=== PATIENT | female | born 1960 | race Caucasian/White ===

== ENCOUNTER 2020-04-11 09:38 | Outpatient (REF) | payer OTHER, SELFPAY | END 2020-04-11 09:39 | disposition home or self-care (01) | LOC: HO.LAB 09:38 | PROVIDERS: PCP Physician Assistant; Visit Provider Internal Medicine | DX: Z20.828 Contact with and (suspected) exposure to other viral communicable diseases (principal) | CPT/HCPCS: C9803; U0003 ==

== ENCOUNTER 2020-04-30 08:31 | Day surgery (SDC) | payer OTHER, SELFPAY ==
[2020-04-29 12:12] VITALS: BMI 23.1
[2020-04-30 08:46] VITALS: BP 107/81; PULSE 65; RESP 16; TEMP 36.4; O2SAT 99
--- NOTE | 2020-04-30 09:26 | HO.ANESPROP2 ---
FORMERLY [facility] Past Medical History Medical History Anxiety Cervical spondylitis Depression Fibromyalgia DONNIE (generalized anxiety disorder) Hyperlipidemia Leukopenia Lumbar radiculopathy Menopause Pharyngoesophageal dysphagia Family History Family History (System 04/16/20 @ 12:37 by Kendra Vuong) Father Lung cancer Mother Lung cancer Surgical History Surgical History History of back surgery History of colonoscopy History of tubal ligation Social History Social History Alcohol intake: current Alcohol intake frequency: holidays/special occasions only Smoking Status: Never smoker Second Hand Smoke Exposure: No Use of substances other than those prescribed or required for medical reasons: No Advance Directives: No Advance Directives Information Provided: Yes Advance Directives on File: No Meds Allergies Allergy/AdvReac Type Severity Reaction Status Date / Time No Known Allergies Allergy Verified 04/16/20 12:37 Home Medications Medication Instructions Recorded Confirmed Type bupropion HCl 300 mg 24 hr tablet, 300 mg PO QAM 02/29/20 02/29/20 History extended release lorazepam 0.5 mg tablet 0.5 mg PO BID PRN 02/29/20 02/29/20 History Exam Exam Date and Time: April 30, 2020925 Height,Weight and Vital Signs: Height 5 ft 6 in Weight 64.864 kg Last Vital Signs Temp 97.6 F 04/30/20 08:46 Pulse 65 04/30/20 08:46 Resp 16 04/30/20 08:46 BP 107/81 04/30/20 08:46 Pulse Ox 99 04/30/20 08:46 Airway Mallampati Class: I TM Dist: >3cm Neck ROM: Full Heart: RRR Lungs: CTA
--- NOTE | 2020-04-30 09:41 | W.PM.OPN ---
Operative Note Operative Note Date of Service: 04/30/20 Narrative: Pre-op diagnosis: Colon cancer screening, dysphagia, small hiatal hernia and a barium swallow Post-op diagnosis: other (LPRD, Gastritis, colon polyps, diverticulosis, hemorrhoids) Procedure: FLEXIBLE TRANSORAL UPPER GASTROINTESTINAL ENDOSCOPY WITH BIOPSIES AND COLONOSCOPY TILL CECUM WITH BIOPSY AND SNARE POLYPECTOMY UPPER ENDOSCOPY Consent: Indications for the procedure and potential complications of bleeding, perforation, reaction to medications and missed diagnosis were discussed with the patient and informed consent was obtained. Instrument: Olympus GIF H 190 mid size upper endoscope Monitoring: Vital signs and clinical assessment, continuous EKG monitoring, Pulse oximetry, Carbon Dioxide monitoring and blood pressure monitoring were done throughout the procedure. Procedure: The patient was placed in the left lateral decubitis position and pre-procedure medications were administered and a bite block was placed. The endoscope was inserted into the mouth and advanced under direct vision to the third part of duodenum. A careful inspection was made as the upper endoscope was withdrawn including a retroflexed examination of the proximal stomach; Findings and interventions are described below. Findings: Larynx: Erythematous arytenoid cartilages suggestive of LPRD Esophagus: Tortuous esophagus with increased tertiary contractions without stricture or ring - biopsies obtained from proximal esophagus to check for EOE. GE junction at 38 cms, small hiatal hernia 38 to 40 cms.. No esophagitis or Conde's. Stomach: Mild gastric erythema. Biopsies were obtained. Grade 2 flap valve on retroflexed examination of the cardia. Duodenum: Normal bulb and descending duodenum Intervention: Biopsies as noted above COLONOSCOPY PROCEDURE NOTE Consent: Indications for the procedure and potential complications of bleeding, perforation, reaction to medications and missed diagnosis were discussed with the patient and informed consent was obtained. Instrument: Olympus PCF H 190 L variable stiffness pediatric colonoscope Monitoring: Vital signs and clinical assessment, intermittent blood pressure monitoring, continuous EKG monitoring, Pulse oximetry and Carbon Dioxide monitoring were done throughout the procedure. Colon withdrawl time was 27 minutes. Procedure: The patient was placed in the left lateral decubitis position and pre-procedure medications were administered. After a digital rectal examination of the ano-rectum, the video colonoscope was inserted into the rectum and advanced through the colon to the cecum. The colonoscope was slowly withdrawn in a retrograde panoramic fashion and the colon mucosa was carefully examined including a retroflexed view of the rectum. Findings and interventions are described below. Procedure Difficulty: Colon was long and tortuous and there was some loop formation. Pt was place din the supine position and LLQ pressure was applied to intubate the cecum Findings: Terminal Ileum: Not evaluated Cecum: Normal Ascending Colon: Normal Transverse Colon: An 8-9 mm sessile polyp removed by a cold snare. Descending Colon: Normal Sigmoid Colon: Moderate diverticulosis Rectum: A 4-5 mm sessile polyp removed with a cold biopsy. Ano-rectum: Moderate internal hemorrhoids Colon preparation: Good after some irrigation. Impression and Post Procedure Diagnosis: Endoscopy Findings: LARYNX: Changes suggestive of LPRD ESOPHAGUS: Small hiatal hernia STOMACH: Minimal gastritis Colonoscopy Findings: Two polyps removed Moderate hemorrhoids on retroflexed exam. Plan: Await pathology results Patient has an appointment on 05/09/20 in the GI Clinic with ELIZABETH Nielson. Repeat Colonoscopy interval based on path results - in 5 years if polyps are adenomatous and 10 years if polyps are hyperplastic. Above findings were reviewed with the patient and GERD, hiatal hernia and colon polyps handouts were given in the discharge area Surgeon: Tierra Marshall MD Anesthesia: MAC (Dr Ward) Estimated blood loss (mL): 0 Pathology: other (A. gastric antrum, B. proximal esophagus, C. transverse colon polyp, D. rectal polyp) Condition: stable Disposition: PACU
--- NOTE | 2020-04-30 09:41 | MHC.SHP ---
Pre-Procedural Eval Section A The patient is an INPATIENT: No The History & Physical has been completed within 30 days and I have reviewed it.: No Section B Chief Complaint: screening, dysphagia Details of Present Illness: A 59-year-old female follows back with dysphagia and odynophagia. Reviewed report from barium swallow with no findings to account for her symptoms. However further discussion with the patient is seems she is likely having acid reflux. She has had this ongoing for many years had not taken any medication for it. She is willing to give trial to omeprazole 20 mg daily. She is scheduled for a screening colonoscopy as well we will do an EGD to rule out peptic ulcer disease, nonulcer dyspepsia-esophagitis or other underlying endoscopic findings to account for her symptoms. Relevant Family History (Specify if Yes): Yes Relevant Social History: None Present Medications: see Short Stay [facility] assessment Medical History: Significant History (Anxiety . Fibromyalgia-refusing to take fibromyalgia medication saying the 'vicodin works better . Hyperlipidemia. Lumbar radiculopathy. Menopause. Depression. Leukopenia- 4.0 - repeat yearly. Lumbar radiculopathy- 2001 Abbasy- prior had inject) History of Previous Operations: No relevant previous surgery (Colonoscopy- Hermes Milligan 07/2010 ([facility]) L4,L5 and S1 surgery- Abbasy 2001 ([facility]) tubal ligation ) Allergies: Allergies Allergy/AdvReac Type Severity Reaction Status Date / Time No Known Allergies Allergy Verified 04/16/20 12:37 Review of Systems Sugical H&P ROS: Negative: Constitution, Cardiovascular, Respiratory and Psychiatric and Yes, Specify: Gastrointestinal (Dysphagia) Exam Surgical H&P Exam: Normal: Heart, Normal: Lungs, Normal: Extremities and Normal: Abdomen Plan Diagnosis/Plan: Unchanged Patient has been examined and remains a candidate for the planned procedure
[2020-04-30 11:03] VITALS: BP 119/87; PULSE 70; RESP 18; TEMP 36.4; O2SAT 100
[2020-04-30 11:18] VITALS: BP 128/58; PULSE 66; RESP 18; TEMP 36.4; O2SAT 98
--- NOTE | 2020-04-30 11:43 | HO.POSTANES ---
Post Anesthesia Evaluation Post Anesthesia Evaluation Vital Signs: Vital Signs Temp Pulse Resp BP Pulse Ox 04/30/20 11:18 97.6 F 66 18 128/58 L 98 04/30/20 11:03 97.6 F 70 18 119/87 100 04/30/20 08:46 97.6 F 65 16 107/81 99 Anesthesia: Monitored Mental Status: Awake Pain Control: Satisfactory Nausea/Vomiting: None Hydration: Adequate Anesthesia-Related Issues: No Anes. Related Issues
== END 2020-04-30 11:50 | disposition home or self-care (01) ==
PROVIDERS: PCP Physician Assistant; Visit Provider Internal Medicine Gastroenterology
PROC: (CPT 45385; principal; 2020-04-30 09:50)
DX: Z12.11 Encounter for screening for malignant neoplasm of colon (principal); D12.3 Benign neoplasm of transverse colon; K62.1 Rectal polyp; K57.30 Diverticulosis of large intestine without perforation or abscess without bleeding; K56.2 Volvulus; K64.8 Other hemorrhoids; R13.10 Dysphagia, unspecified; K21.9 Gastro-esophageal reflux disease without esophagitis; K44.9 Diaphragmatic hernia without obstruction or gangrene; K29.50 Unspecified chronic gastritis without bleeding
CPT/HCPCS: 45385; 45380; 43239; 88305; 88342

== ENCOUNTER → 2020-05-09 12:46 | Outpatient (BNVA) | payer OTHER, SELFPAY | PROVIDERS: PCP Physician Assistant; Visit Provider Physician Assistant | DX: Z76.89 Persons encountering health services in other specified circumstances (principal) ==

== ENCOUNTER 2020-11-28 08:39 | Outpatient (REF) | payer OTHER, SELFPAY ==
[2020-11-28 10:47] LABS: TSH reflex Free T4 0.59 uIU/mL (0.32-4.0)
== END 2020-11-28 08:40 | disposition home or self-care (01) ==
LOC: HO.LAB 08:39
PROVIDERS: PCP Physician Assistant; Visit Provider Physician Assistant
DX: E78.2 Mixed hyperlipidemia (principal)
CPT/HCPCS: 36415; 84443

== ENCOUNTER 2021-01-22 08:48 | Outpatient (REF) | payer OTHER, SELFPAY ==
[2021-01-22 09:42] LABS: Alanine Aminotransferase 26 U/L (0-31); Albumin Level 4.3 g/dL (3.5-5.0); Alkaline Phosphatase 68 U/L (39-117); Anion Gap 10 (12-20); Aspartate Amino Transferase 20 U/L (5-31); Bilirubin Total 0.9 mg/dL (0.0-1.0); Blood Urea Nitrogen 12 mg/dL (9-16); Carbon Dioxide 28 mmol/L (22-29); Chloride 106 mmol/L (96-108); Cholesterol 276 mg/dL; Estimated Glomerular Filt Rate > 60; Glucose Fasting 88 mg/dL (60-99); HDL Cholesterol 67 mg/dL; LDL Cholesterol Calculated 193 mg/dl; Potassium 4.1 mmol/L (3.3-5.1); Sodium 140 mmol/L (135-145); Triglycerides 80 mg/dL
[2021-01-22 09:48] LABS: Calcium 9.4 mg/dL (8.4-10.2)
== END 2021-01-22 08:49 | disposition home or self-care (01) ==
LOC: HO.LAB 08:48
PROVIDERS: PCP Physician Assistant; Visit Provider Physician Assistant
DX: E78.2 Mixed hyperlipidemia (principal)
CPT/HCPCS: 36415; 80053; 80061

== ENCOUNTER 2021-03-25 13:17 | Outpatient (REF) | payer OTHER, SELFPAY ==
[2021-03-25 13:33] LABS: MANUAL DIFF FLAG NO
[2021-03-25 13:45] LABS: Basophils Percent Auto 0.3 % (0-2); Eosinophils Percent Auto 0.8 % (0-4); Hemoglobin 12.9 g/dl (12.0-16.0); Lymphocytes Absolute Auto 1.5 X10*3/uL (1.2-4.9); Mean Corpuscular HGB Conc 33.1 g/dl (31.0-35.0); Mean Corpuscular Hemoglobin 30.9 pg (27.0-33.0); Mean Corpuscular Volume 93.3 fL (80.0-98.0); Mean Platelet Volume 9.1 fL (9.4-12.3); Monocytes Absolute Auto 0.4 X10*3/uL (0.1-1.2); Monocytes Percent Auto 9.9 % (2-11); Neutrophils Absolute Auto 1.84 x10*3/uL (2.0-8.3); Platelet Count 307 X10*3/uL (160-400); Red Blood Count 4.18 X10*6/uL (4.20-5.50); Red Cell Distribution Width 12.2 % (11.0-16.0); White Blood Count 3.8 X10*3/uL (4.8-10.8)
[2021-03-25 14:07] LABS: Anion Gap 13 (12-20); Blood Urea Nitrogen 10 mg/dL (9-16); Calcium 9.8 mg/dL (8.4-10.2); Carbon Dioxide 31 mmol/L (22-29); Chloride 103 mmol/L (96-108); Cholesterol 252 mg/dL; Estimated Glomerular Filt Rate > 60; Glucose Fasting 96 mg/dL (60-99); HDL Cholesterol 65 mg/dL; Iron 89 mcg/dL (30-160); LDL Cholesterol Calculated 162 mg/dl; Lactate Dehydrogenase 181 U/L (122-220); Percent Iron Saturation 25 % (15-50); Potassium 4.9 mmol/L (3.3-5.1); Sodium 142 mmol/L (135-145); Total Iron Binding Capacity 356 mcg/dL (228-428); Triglycerides 128 mg/dL; Unsaturated Iron Binding 267 ug/dL
[2021-03-25 14:49] LABS: Folate 17.7 ng/mL (> or = 4.0); Vitamin B12 1305 pg/mL (200-900)
[2021-03-26 08:58] LABS: HIV AB/AG Nonreactive (Nonreactive); HIV Num 1 0.05 S/CO (0.00-0.99)
== END 2021-03-25 13:18 | disposition home or self-care (01) ==
LOC: HO.LAB 13:17
PROVIDERS: PCP Physician Assistant; Visit Provider Physician Assistant
DX: E78.2 Mixed hyperlipidemia (principal); D70.9 Neutropenia, unspecified; D50.9 Iron deficiency anemia, unspecified
CPT/HCPCS: 36415; 80048; 80061; 82607; 82746; 83540; 83615; 85025; 87389

== ENCOUNTER 2021-06-05 08:07 | Outpatient (REF) | payer OTHER, SELFPAY ==
[2021-06-05 08:42] LABS: Hematocrit 38.5 % (37.0-47.0); Hemoglobin 12.7 g/dl (12.0-16.0); Mean Corpuscular Hemoglobin 30.6 pg (27.0-33.0); Mean Corpuscular Volume 92.8 fL (80.0-98.0); Mean Platelet Volume 8.9 fL (9.4-12.3); Platelet Count 283 X10*3/uL (160-400); Red Blood Count 4.15 X10*6/uL (4.20-5.50); White Blood Count 3.7 X10*3/uL (4.8-10.8)
[2021-06-05 09:10] LABS: Alanine Aminotransferase 29 U/L (0-31); Albumin Level 4.2 g/dL (3.5-5.0); Alkaline Phosphatase 69 U/L (39-117); Anion Gap 10 (12-20); Aspartate Amino Transferase 23 U/L (5-31); Bilirubin Total 0.9 mg/dL (0.0-1.0); Blood Urea Nitrogen 11 mg/dL (9-16); Calcium 9.5 mg/dL (8.4-10.2); Carbon Dioxide 29 mmol/L (22-29); Chloride 108 mmol/L (96-108); Cholesterol 263 mg/dL; Estimated Glomerular Filt Rate > 60; Glucose Fasting 95 mg/dL (60-99); HDL Cholesterol 73 mg/dL; LDL Cholesterol Calculated 175 mg/dl; Lactate Dehydrogenase 166 U/L (122-220); Potassium 4.4 mmol/L (3.3-5.1); Sodium 143 mmol/L (135-145); Triglycerides 78 mg/dL
[2021-06-05 09:26] LABS: Ferritin 59 ng/mL (10-250)
== END 2021-06-05 08:08 | disposition home or self-care (01) ==
LOC: HO.LAB 08:07
PROVIDERS: PCP Physician Assistant; Visit Provider Physician Assistant
DX: E78.2 Mixed hyperlipidemia (principal); D70.9 Neutropenia, unspecified
CPT/HCPCS: 36415; 80053; 80061; 82728; 83615; 85027

== ENCOUNTER → 2021-08-22 13:30 | Outpatient (REF) | payer OTHER, SELFPAY ==
--- NOTE | 2021-08-22 13:33 | ECG_ITS ---
Hook-up date: 2021-08-22 12:42:00 Duration: 47:59:00 Test Indications: palpitatons Medications: [id number] QRS complexes 11 Ventricular ectopics which represent <1 % of total QRS comp. 134 Supraventricular ectopics which represent <1 % of total QRS comp. * Paced QRS complexs which represent % of total QRS comp. VENTRICULAR ECTOPY 11 Isolated 0 Bigeminal Cycles 0 Couplets 0 Runs 0 Beats in Runs * Beats LONGEST at * BPM at :: -- * Beats FASTEST at * BPM at :: -- SUPRAVENTRICULAR ECTOPY 92 Isolated 4 Couplets 8 Runs 34 Beats in Runs 6 Beats LONGEST at 88 BPM at 09:14:15 2021-08-23 3 Beats FASTEST at 131 BPM at 20:39:43 2021-08-23 HEART RATES 57 MIN at 06:06:02 2021-08-24 74 AVG 120 MAX at 16:29:24 2021-08-23 LONGEST RR 1.0880 secs at 06:06:02 2021-08-24 S-T LEVELS Channel 1 - 128 mm at 12:42:00 2021-08-22 - 128 mm at 12:42:00 2021-08-22 Channel 2 - 128 mm at 12:42:00 2021-08-22 - 128 mm at 12:42:00 2021-08-22 Channel 3 - 128 mm at 03:20:11 -- - 128 mm at 03:20:11 Underlying rhythm is sinus; Average ventricular rate 74; range 57-120/min; Occasional supraventricular ectopy; minimal burden; Rare ventricular ectopy; No sustained arrhythmias; Patient did not report any symptoms in the diary Referred By: Cecil Gan Overread By: MEGAN WEISS
== END ==
LOC: HO.CARD 13:30
PROVIDERS: PCP Physician Assistant; Visit Provider Physician Assistant
DX: R00.2 Palpitations (principal)
CPT/HCPCS: 93226

== ENCOUNTER 2022-07-01 11:18 | Outpatient (REF) | payer OTHER, SELFPAY ==
--- NOTE | ~2022-07-01 | MM_ITS ---
EXAMINATION: MM SCREENING DIGITAL BREAST TOMOSYNTHESIS, BILATERAL CLINICAL INFORMATION: Screening. Asymptomatic. The lifetime risk of breast cancer based on the Tyrer-Cuzick Model is 7.4%. COMPARISON: Mammography: December 12, 2014 and studies dating back to March 26, 2009 TECHNIQUE: Digital breast tomosynthesis is performed in both the craniocaudal and mediolateral oblique views along with computer-aided detection (CAD). Synthesized 2D images are generated from the tomosynthesis. FINDINGS: The breasts are extremely dense, which lowers the sensitivity of mammography (ACR BI-RADS breast composition Category d). There are no significant masses, abnormal calcifications, or other abnormalities. MM/MM tomosynthesis screening BI IMPRESSION: No significant changes ASSESSMENT: BI-RADS 1: Negative RECOMMENDATION: Routine annual mammography screening. This patient's information was entered into a reminder system with a target due date for their next mammogram.
== END 2022-07-01 11:19 | disposition home or self-care (01) ==
LOC: HO.MAMMO 11:18
PROVIDERS: PCP Physician Assistant; Visit Provider Physician Assistant
DX: Z12.31 Encounter for screening mammogram for malignant neoplasm of breast (principal)
CPT/HCPCS: 77063; 77067

== ENCOUNTER 2022-07-20 09:57 | Outpatient (REF) | payer OTHER, SELFPAY ==
[2022-07-23 00:54] LABS: HPV mRNA E6/E7 rflx Not Detected (Not Detected)
== END 2022-07-20 09:58 | disposition home or self-care (01) ==
LOC: HO.LNP 09:57
PROVIDERS: PCP Physician Assistant; Visit Provider Advanced Practice Midwife
DX: Z01.419 Encounter for gynecological examination (general) (routine) without abnormal findings (principal)
CPT/HCPCS: 87624; 88142

== ENCOUNTER 2022-11-10 10:04 | Outpatient (REF) | payer OTHER, SELFPAY ==
[2022-11-10 11:10] LABS: Hematocrit 38.1 % (37.0-47.0); Hemoglobin 12.3 g/dl (12.0-16.0); Mean Corpuscular HGB Conc 32.3 g/dl (31.0-35.0); Mean Corpuscular Hemoglobin 29.6 pg (27.0-33.0); Mean Corpuscular Volume 91.6 fL (80.0-98.0); Mean Platelet Volume 8.9 fL (9.4-12.3); Platelet Count 342 X10*3/uL (160-400); Red Blood Count 4.16 X10*6/uL (4.20-5.50); Red Cell Distribution Width 11.7 % (11.0-16.0); White Blood Count 4.8 X10*3/uL (4.8-10.8)
[2022-11-10 12:17] LABS: Alanine Aminotransferase 19 U/L (0-31); Albumin Level 3.9 g/dL (3.5-5.0); Alkaline Phosphatase 90 U/L (39-117); Anion Gap 14 (12-20); Aspartate Amino Transferase 16 U/L (5-31); Bilirubin Total 0.9 mg/dL (0.0-1.0); Blood Urea Nitrogen 10 mg/dL (9-16); Calcium 9.7 mg/dL (8.4-10.2); Carbon Dioxide 27 mmol/L (22-29); Chloride 104 mmol/L (96-108); Cholesterol 198 mg/dL; Estimated Glomerular Filt Rate > 60; Glucose Fasting 93 mg/dL (60-99); HDL Cholesterol 56 mg/dL; LDL Cholesterol Calculated 130 mg/dl; Potassium 4.3 mmol/L (3.3-5.1); Sodium 141 mmol/L (135-145); Total Protein 7.2 g/dL (6.5-8.0); Triglycerides 63 mg/dL
[2022-11-10 12:21] LABS: TSH reflex Free T4 0.01 uIU/mL (0.32-4.0)
[2022-11-10 13:27] LABS: Free T4 (Free Thyroxine) 1.43 ng/dL (0.71-1.85)
== END 2022-11-10 10:05 | disposition home or self-care (01) ==
LOC: HO.LAB 10:04
PROVIDERS: PCP Physician Assistant; Visit Provider Physician Assistant
DX: E78.2 Mixed hyperlipidemia (principal)
CPT/HCPCS: 36415; 80053; 80061; 84439; 84443; 85027

== ENCOUNTER 2023-07-12 11:31 | Outpatient (AMB) | payer OTHER, SELFPAY ==
--- NOTE | 2023-07-12 11:53 | A.OFFPC_ITS ---
Vital Signs 07/12/23 11:54 Height 5 ft 6 in Weight 135 lb BMI 21.8 BP 112/68 Blood Pressure Location Lt brachial Position Sitting Pulse 75 Pulse Source Pulse Oximeter Pulse Oximetry (%) 97 Oxygen Delivery Method Room Air Intake Visit Reasons: Annual Exam Intake Note: Patient is here today for a physical. 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 Accompanied by: Self / Same As Patient Allergies No Known Allergies Allergy (Verified 07/12/23 12:00) Medication List - Last Reconciled 07/12/23 by Cecil Gan PA-C bupropion HCl 200 mg PO QAM dextroamphetamine-amphetamine 10 mg (Adderall) 10 mg PO BID ibuprofen 800 mg PO Q8H PRN 10 days lorazepam 1 mg PO BID pantoprazole (Protonix) 20 mg PO DAILY 90 days sertraline 50 mg PO DAILY Tobacco use date assessed: 07/12/23 Fall risk assessment: No Falls in past year Last assessed Fall Risk: 07/12/23 Dental Screening Dental Screen Date: 07/12/23 Did you have a dental visit in the last 12 months?: Yes Did you have a dental problem in the last 6 months where you did not have access to dental care?: No Was dental information given to patient?: Patient has dentist HPI Annual Exam HPI Details patient is a 62-year-old female here today for routine annual physical Patient has a past medical history significant for anxiety, cervical spine pain, hyperlipidemia, Concerned--> patient continues to have both cervical and lumbar spine pain. She does have radicular symptoms in her lumbar spine down her left lower extremity. Has had surgery many years ago for lumbar spine L4-L5 and S1 discs. She continues to use ibuprofen with only minimal relief of her cervical and lumbar spine pain. She continues to have pain stiffness during her long work day hours. She is interested in seeing pain management specialty. .. arthritis: Reports having polarthralgia worse in the morning and gets better throught the day. Has been using tylenol and NSAID for pain with decent relief.? Of note she did have PETTY testing in January 2020 showing positive PETTY. Now having more sharp pain ? in her back and cervical spine.? She does report at times having very acute sharp pains causing her to drop things. ?Of note she did have lumbar spine surgery many years. .. Elevated cholesterol:? Most recent lipid panel improved though remains elevated.? She would like to continue working on lifestyle to reduce her cholesterol. .. Anxiety: Seeing Dr jean-claude, started on wellburin and Lorazapam though feels her anxiety has been elevated lately due to family issues.? Continues to speak with a mental health therapist. mammo: Done in June 2022 BI-RADS 1. 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 Colorectal cancer screening: She is up to date with colonoscopy, needs repeat every 5 years due to tubular adenoma polyps [facility] Medical History Colon adenomas Cervical spondylitis Pharyngoesophageal dysphagia DONNIE (generalized anxiety disorder) Leukopenia Depression Menopause Lumbar radiculopathy Hyperlipidemia Fibromyalgia Anxiety Surgical History History of colonoscopy History of back surgery History of tubal ligation Family History Father Lung cancer Mother Lung cancer Paternal Uncle Colon cancer Social History Household Members Other:: lives with adult daughter Housing: House Alcohol intake: current Alcohol intake frequency: holidays/special occasions only Patient Tobacco Use Status: Former Tobacco user e-Cigarette/Vaping Use: Never Used Second Hand Smoke Exposure: No service: No Current occupational status: employed Current occupation: [employer] Cognitive needs: No Hearing needs: No Vision needs: No Questionnaire PHQ-9 Over the last 2 weeks, how often have you been bothered by any of the following problems? 1. Little interest or pleasure in doing things: more than half the days 2. Feeling down, depressed, or hopeless: nearly every day 3. Trouble falling or staying asleep, or sleeping too much: not at all 4. Feeling tired or having little energy: not at all 5. Poor appetite or overeating: more than half the days 6. Feeling bad about yourself - or that you are a failure or have let yourself or your family down: more than half the days 7. Trouble concentrating on things, such as reading the newspaper or watching television: more than half the days 8. Moving or speaking so slowly that other people could have noticed. Or the opposite - being so fidgety or restless that you have been moving around a lot more than usual: not at all 9. Thoughts that you would be better off or of hurting yourself in some way: not at all Total score: 11 Depression Screening Interpretation: Positive Depression Screening Follow-up: Existing condition and In treatment Depression Screening Done: Yes [id number] - PHQ-9 Billing: Yes Source: Developed by Drs. Umang Bryan, Zenaida Andrade, Los Cunningham and colleagues, with an educational bala from [employer]. Thrive Questionnaire Date Thrive assessed: 07/12/23 I am a: Patient What is your living situation today?: I have a steady place to live Within the past 12 months, did the food you bought not last and you didn't have the money to get more?: Never true Within the past 12 months, did you worry whether your food would run out before you got money to buy more?: Never true Do you have trouble paying for medicines?: No Do you have trouble getting transportation to medical appointments?: No Do you have trouble paying your heating and electricity bill?: No Do you have trouble taking care of your child, family member or friend?: No Do you have trouble with day-to-day activities such as bathing, preparing meals, shopping, managing finances, etc.?: No Are you interested in more education?: No Please select the resources that you would like help with: None Currently or been in a relationship where the following occur: no concerns reported THRIVE Score: 0 AUDIT C Alcohol Use Questionnaire (AUDIT-C) 1. How often do you have a drink containing alcohol?: Monthly or less 2. How many drinks containing alcohol do you have on a typical day when you are drinking?: 1 or 2 Total Score: 1 DONNIE-7 AMB Questionnaire DONNIE-7 Date DONNIE - 7 assessed: 07/12/23 Feeling nervous, anxious, or on edge: 1 = Several days Not being able to stop or control worryin = Several days Worrying too much about different things: 1 = Several days Trouble relaxin = Several days Being so restless that it is hard to sit still: 0 = Not at all Becoming easily annoyed or irritable: 1 = Several days Feeling afraid as if something awful might happen: 1 = Several days Total DONNIE-7 score (0-4 normal; 5-9 mild; 10-14 moderate; 15-21 severe): 6 Source: Developed by Drs. Umang Bryan, Zenaida Andrade, Los Cunningham and colleagues, with an educational bala from [employer]. DONNIE-7 Assessment Billing DONNIE-7 Assessment Tool: DONNIE-7 Assessment 38360 Review of Systems Const Denies body aches, Denies chills, Denies excessive sweating, Denies fatigue, Denies fever(s) and Denies headache(s) Eyes Denies blurry vision ENT Denies dysphagia, Denies vertigo, Denies dizziness, Denies headache(s), Denies hearing loss and Denies tinnitus Card Denies chest pain, Denies chest pain with activity, Denies syncope, Denies irregular heart rhythm and Denies dyspnea Resp Denies chest congestion, Denies cough, Denies hemoptysis, Denies dyspnea and Denies wheezing GI Denies abdominal pain, Denies melena, Denies hematochezia, Denies coffee ground emesis, Denies dysphagia, Denies diarrhea, Denies nausea and Denies vomiting Denies urinary frequency, Denies dysuria, Denies urinary hesitancy and Denies urinary urgency Musc Denies arthralgias, Denies limited range of motion, Denies muscle cramps and De nies muscle weakness Skin/Breast Denies rash and Denies skin ulcer Neuro Denies Abnormal speech present, Denies confusion, Denies vertigo, Denies dizz iness, Denies syncope, Denies headache(s), Denies memory loss and Denies seizure-like activity Psych Denies anxiety, Denies confusion, Denies depression, Denies memory loss, Denies panic attacks and Denies paranoia Endo Denies excessive sweating, Denies fatigue, Denies flushing, Denies polydipsia and Denies polyuria Aller/Immun Denies wheezing Physical exam (Primary Care) Vital Signs: Last Vital Signs Pulse 75 07/12/23 11:54 BP 112/68 07/12/23 11:54 Pulse Ox 97 07/12/23 11:54 Oxygen Delivery Method Room Air 07/12/23 11:54 BMI result Body Mass Index 21.8 Tobacco/Smoking Status: Tobacco use Status Tobacco use date assessed 07/12/23 07/12/23 11:59 Patient Tobacco Use Status Former Tobacco user 07/12/23 12:06 e-Cigarette/Vaping Use Never Used 07/12/23 12:06 PHQ-9: PHQ-9 Score PHQ-9: Total score 11 07/12/23 12:02 Depression Screening Interpretation: Positive Depression Screening Follow-up: Existing condition and In treatment Thrive Assessment: Date of Thrive Assessment Date Thrive assessed 07/12/23 07/12/23 11:59 Currently or been in a relationship where the following occur: no concerns reported Const General: cooperative, comfortable, no acute distress, alert and awake; No confusion Orientation/consciousness: oriented to person, oriented to place, patient oriented x3 and No confusion HENMT Head: Yes normocephalic Ears: external ears normal and TM's normal bilaterally Face and sinus: No sinus tenderness Mouth: Normal oral and palatal mucosa present and tongue normal Teeth and gingiva: dentition normal and gingiva normal Throat: Yes posterior oropharynx normal, Yes tonsils normal and Yes uvula midline Eyes Conjunctivae: conjunctivae normal Sclerae: sclerae normal Pupils: Equal, round and reactive pupils present EOM: EOMs intact bilaterally Direct Ophthalmoscopy: No no photophobia Neck Neck: Yes no lymphadenopathy, No tender and Yes no JVD Thyroid: Thyroid normal Carotids: no bruits Chest Chest palpation & inspection: no tenderness Resp Effort & Inspection: normal respiratory effort, no audible wheezes, not labored and no stridor Auscultation: no crackles, no rales, no rhonchi and no wheezes Cardio Jugular venous distension: no JVD Rate: regular rate, not bradycardic and not tachycardic Rhythm: regular rhythm Bruits: no carotid bruits Peripheral pulses: Peripheral pulses 2+ throughout GI Inspection: Yes normal to inspection, No abdominal wall ecchymosis and No visible herniation Palpation (GI): Soft to palpation, nontender, no guarding, not rigid and No hepatosplenomegaly present Auscultation: normoactive bowel sounds General: Yes no CVA tenderness Back/Spine/Pelvis Back: no CVA tenderness and No back tenderness Cervical Spine: cervical ROM normal Thoracic/Lumbar Spine: thoracic and lumbar spine normal to inspection, straight leg raise negative bilaterally, No thoraco-lumbar ROM limited and No lumbar spinal tenderness Skin Lesions: no lesions Rashes: no rashes Wounds: no wounds Neuro General: oriented to person, oriented to place, patient oriented x3, CN's II-XI intact bilaterally and No confusion Cranial nerves: Yes Equal, round and reactive pupils present and Yes Normal accommodation reflex present Cognition (Neuro): normal cognition Speech: No Abnormal speech present Gait exam (Neuro): Normal gait present Motor exam (neuro): 5/5 motor strength present throughout Extrem Right upper extremity: full ROM; no cyanosis Left upper extremity: full ROM; no cyanosis Right lower extremity: no edema Left lower extremity: no edema Psych Appearance: grossly normal Mental Status: mental status grossly normal Affect: normal affect Attitude: cooperative Thought process: Normal thought process present Assessment and Plan Assessment & Plan (1) Annual physical exam: Code(s): Z00.00 - Encounter for general adult medical examination without abnormal findings (2) Cervical radiculitis: Code(s): M54.12 - Radiculopathy, cervical region Plan: As per HPI patient has a long history of cervical spine pain with pain that radiates into her shoulders and lower aspect of her neck. She has done physical therapy and continues to try medication though has only given her minimal relief. She would like to get an MRI to evaluate for recurrent disc issue. Will refer to pain management for possible pain reduction modality as well. (3) MDD (major depressive disorder), recurrent episode, moderate: Code(s): F33.1 - Major depressive disorder, recurrent, moderate Plan: Patient's PHQ-9 score positive for depression which has been existing condition for her. She does speak with a mental health med provider who manages her mental health medications. Still deals with grief from losing her last year. (4) Lumbar radiculopathy: Code(s): M54.16 - Radiculopathy, lumbar region Plan: As per HPI has had surgery many years ago for lumbar spine discs. Continues to have some pain and stiffness and some radicular symptoms down left lower extremity. Will try for MRI to evaluate for recurrent disc herniation. (5) Recurrent aphthous ulcer: Code(s): K12.0 - Recurrent oral aphthae Plan: Will test vitamin levels. Does have extensive dental work done recently (6) Post-menopausal: Code(s): Z78.0 - Asymptomatic menopausal state (7) HLD (hyperlipidemia): Code(s): E78.5 - Hyperlipidemia, unspecified Qualifiers: Hyperlipidemia type: mixed hyperlipidemia Qualified Code(s): E78.2 - Mixed hyperlipidemia Plan: Patient does have history of elevated total cholesterol and LDL. Has been working on lifestyle modifications and dietary modifications to control her cholesterol. Will recheck a lipid panel. Goal LDL to be below 160 Orders: Orders Complete Blood Count no Diff Today K21.9 - Gastro-esophageal reflux disease without esophagitis TSH reflex Free T4 Today E78.2 - Mixed hyperlipidemia Comprehensive [place]. Panel Fast Today E78.2 - Mixed hyperlipidemia MR cervical spine wo con Today M54.12 - Radiculopathy, cervical region MR lumbar spine wo con Today M54.16 - Radiculopathy, lumbar region Anti DNA DS Antibody Today R76.8 - Other specified abnormal immunological findings in serum Zinc Today K12.0 - Recurrent oral aphthae IRON PROFILE Today D50.9 - Iron deficiency anemia, unspecified, K12.0 - Recurrent oral aphthae Lipid Panel Today E78.2 - Mixed hyperlipidemia PETTY Reflex Titer and Pattern Today R76.8 - Other specified abnormal immunological findings in serum Rheumatoid Factor Today R76.8 - Other specified abnormal immunological findings in serum Cyclic Citrullinated Peptide Today R76.8 - Other specified abnormal immunological findings in serum Vitamin B12 and Folate Today E53.8 - Deficiency of other specified B group vitamins, K12.0 - Recurrent oral aphthae Vitamin A Today K12.0 - Recurrent oral aphthae XR DEXA axial skeleton Today Z78.0 - Asymptomatic menopausal state MM screening mammo BI Today Z12.31 - Encounter for screening mammogram for malignant neoplasm of breast Referrals Pain Management Referral M54.12 - Radiculopathy, cervical region Medications: Changed From pantoprazole (Protonix) 20 mg PO DAILY 30 days 30 tabs 2RF K21.9 - Gastro- esophageal reflux disease without esophagitis To pantoprazole (Protonix) 20 mg PO DAILY 90 days 90 tabs 2RF K21.9 - Gastro- esophageal reflux disease without esophagitis Refilled ibuprofen 800 mg PO Q8H 10 days PRN 30 tabs 3RF pain M25.50 - Pain in unspecified joint Coding Level of Care Code Est Pt Prev Care 40-64y(21694) Diagnoses Annual physical exam Z00.00 Cervical radiculitis M54.12 MDD (major depressive disorder), recurrent episode, moderate F33.1 Lumbar radiculopathy M54.16 Recurrent aphthous ulcer K12.0 Post-menopausal Z78.0 Mixed hyperlipidemia E78.2 Hyperlipidemia type: mixed hyperlipidemia Additional Codes DONNIE-7 Assessment Billing - DONNIE-7 Assessment Tool: DONNIE-7 Assessment [id number] ([id number])
[2023-07-12 11:54] VITALS: BP 112/68; PULSE 75; O2SAT 97; BMI 21.8
== END 2023-07-12 12:26 | disposition home or self-care (01) ==
PROVIDERS: Visit Provider Physician Assistant
DX: Z00.00 Encounter for general adult medical examination without abnormal findings (principal); F33.1 Major depressive disorder, recurrent, moderate; M54.12 Radiculopathy, cervical region; M54.16 Radiculopathy, lumbar region; K12.0 Recurrent oral aphthae; Z78.0 Asymptomatic menopausal state; E78.2 Mixed hyperlipidemia
CPT/HCPCS: 99396

== ENCOUNTER 2023-07-20 09:41 | Outpatient (REF) | payer OTHER, SELFPAY ==
[2023-07-20 10:35] LABS: Hematocrit 39.9 % (37.0-47.0); Hemoglobin 13.1 g/dl (12.0-16.0); Mean Corpuscular HGB Conc 32.8 g/dl (31.0-35.0); Mean Corpuscular Hemoglobin 30.6 pg (27.0-33.0); Mean Corpuscular Volume 93.2 fL (80.0-98.0); Mean Platelet Volume 8.8 fL (9.4-12.3); Platelet Count 275 X10*3/uL (160-400); Red Blood Count 4.28 X10*6/uL (4.20-5.50); Red Cell Distribution Width 12.3 % (11.0-16.0); White Blood Count 3.7 X10*3/uL (4.8-10.8)
[2023-07-20 12:09] LABS: Alanine Aminotransferase 24 U/L (0-31); Alkaline Phosphatase 69 U/L (39-117); Anion Gap 9 (12-20); Aspartate Amino Transferase 23 U/L (5-31); Bilirubin Total 0.5 mg/dL (0.0-1.0); Blood Urea Nitrogen 12 mg/dL (9-16); Calcium 9.2 mg/dL (8.4-10.2); Carbon Dioxide 29 mmol/L (22-29); Chloride 106 mmol/L (96-108); Cholesterol 270 mg/dL (<200); Estimated Glomerular Filt Rate > 60; Glucose Fasting 81 mg/dL (60-99); HDL Cholesterol 73 mg/dL (>40); Iron 115 mcg/dL (30-160); LDL Cholesterol Calculated 180 mg/dL (<100); Percent Iron Saturation 39 % (15-50); Sodium 140 mmol/L (135-145); Total Iron Binding Capacity 295 mcg/dL (228-428); Triglycerides 88 mg/dL (<150); Unsaturated Iron Binding 180 ug/dL
[2023-07-20 12:42] LABS: TSH reflex Free T4 0.83 uIU/mL (0.32-4.0)
[2023-07-20 16:39] LABS: Rheumatoid Factor < 13.0 IU/mL (<15.0)
[2023-07-20 17:05] LABS: Folate 8.1 ng/mL (> or = 4.0)
[2023-07-21 15:59] LABS: Vitamin B12 376 pg/mL (200-900)
[2023-07-22 12:58] LABS: Anti DNA DS Antibody 1 IU/mL
[2023-07-22 15:39] LABS: Cyclic Citrullinated Peptide <16 UNITS
[2023-07-24 00:19] LABS: Zinc 94 mcg/dL (60-130)
[2023-07-26 15:57] LABS: Vitamin A 50 mcg/dL (38-98)
[2023-07-28 15:27] LABS: Anti Nuclear Antibody Pattern Nuclear, Homogeneous; Anti Nuclear Antibody Screen POSITIVE (NEGATIVE)
== END 2023-07-20 09:42 | disposition home or self-care (01) ==
LOC: HO.LAB 09:41
PROVIDERS: PCP Physician Assistant; Visit Provider Physician Assistant
DX: K21.9 Gastro-esophageal reflux disease without esophagitis (principal); E78.2 Mixed hyperlipidemia; R76.8 Other specified abnormal immunological findings in serum; E53.8 Deficiency of other specified B group vitamins; K12.0 Recurrent oral aphthae; D50.9 Iron deficiency anemia, unspecified
CPT/HCPCS: 36415; 80053; 80061; 82607; 82746; 83540; 84443; 84590; 84630; 85027; 86038; 86039; 86200; 86225; 86431

== ENCOUNTER 2023-07-23 09:39 | Outpatient (AMB) | payer OTHER, SELFPAY ==
--- NOTE | 2023-07-23 09:41 | A.OFFVIS_ITS ---
Intake Vital Signs 07/23/23 09:45 Height 5 ft 6 in Weight 133 lb 2 oz BMI 21.5 BP 134/83 Blood Pressure Location Rt brachial Position Sitting Pulse 66 Pulse Source Pulse Oximeter Pulse Oximetry (%) 99 Oxygen Delivery Method Room Air Intake Visit Reasons: Radiculopathy, cervical region Intake Note: Pain today 5/10 Satellite Instruction Facilitator Required: No Accompanied by: Self / Same As Patient Allergies No Known Allergies Allergy (Verified 07/23/23 09:44) HPI Radiculopathy, cervical region HPI Details Patient is a 62 years old female with prior history of cervical spondylosis, chronic headaches, lumbar radiculopathy, polyarthralgia, anxiety, depression, fibromyalgia presents today for initial evaluation of chronic neck pain with radicular symptoms and back pain with intermittent sciatica. Denies any recent trauma, injury, or falls. Reports L4-S1 back surgery in 1997. Right hand dominant. 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 She completed physical therapy in 2021 at [facility] without any significant function improvement or pain reduction. She continues with HEP and finds gentle stretching beneficial but increase pain with cervical extension, flexion and lateral rotations. Neck and back pain is constant and averages 5-8/10. Pain affects her daily activities, functioning, work, mood, sleep, social interactions, and quality of life. Denies any fever, weight loss, dizziness, chest pain, weakness, footdrop, bladder or bowel dysfunction, or saddle anesthesia. Location Neck, mid and lower back Duration Chronic pain, worsening for past 3 years Characteristics of symptom or complaint Stiff, aching, snapping burning, tingling, pinching, radiating, tight Aggravating or associated factors Movements, bending, looking down, prolonged s tanding Relieving factors Heat, rest, NSAIDs, Tylenol, muscle relaxant, tried Vicodin in past-helpful Treatment PT- mild benefit, chiropractic, acupuncture, back injection prior surgery [facility] Medical History Colon adenomas Cervical spondylitis Pharyngoesophageal dysphagia DONNIE (generalized anxiety disorder) Leukopenia Depression Menopause Lumbar radiculopathy Hyperlipidemia Fibromyalgia Anxiety Surgical History History of colonoscopy History of back surgery History of tubal ligation Family History Father Lung cancer Mother Lung cancer Paternal Uncle Colon cancer Social History Household Members Other:: lives with adult daughter Housing: House Alcohol intake: current Alcohol intake frequency: holidays/special occasions only Patient Tobacco Use Status: Former Tobacco user e-Cigarette/Vaping Use: Never Used Second Hand Smoke Exposure: No service: No Current occupational status: employed Current occupation: [employer] Cognitive needs: No Hearing needs: No Vision needs: No Review of Systems Const All systems reviewed & are unremarkable except as noted in HPI and below Physical Exam Vital Signs: Last Vital Signs Pulse 66 07/23/23 09:45 BP 134/83 07/23/23 09:45 Pulse Ox 99 07/23/23 09:45 Oxygen Delivery Method Room Air 07/23/23 09:45 BMI result Body Mass Index 21.5 General: Appears afebrile. Alert and oriented. Mood and affect appropriate. Follows and participates in conversation appropriately. Respiratory effort is unlabored. No cough. Able to transition from sit to stand unassisted. Ambulates with bilaterally normal heel strike and toe off. Neck Other: Patient with decreased cervical ROM in all planes/especially with lateral rotation, left>right. Axial neck pain radiates to both shoulders and rhomboids bilaterally, worse on the left. Reports increased pain with cervical extension and flexion. Spurling compression test negative. Pain is unchanged by Spurling maneuver with retraction. Elvey's tension test negative bilaterally. Lhermitte's test was negative. DTR intact, +2 and symmetrical. No clonus. Patient demonstrated 5/5 motor strength of bilateral upper extremities. 2 + radial pulses. Significant tightness throughout left upper trapezius as well as TTP throughout bilateral upper trapezius muscles. Mild paravertebral tenderness over facet joints. Multiple taut bands palpated throughout bilateral upper trapezius muscles. Neck: Yes normal visual inspection, Yes no lymphadenopathy, Yes supple, No anterior neck swelling, No torticollis, Yes no JVD, No prominent supraclavicular fat pad and No prominent dorsocervical fat pad Back/Spine/Pelvis Cervical Spine: No Lhermitte's sign positive, cervical muscular tenderness, pain with cervical ROM, No Cervical spine scars present, cervical spasm, No Cervical spine tenderness and No step off deformity Thoracic/Lumbar Spine: thoracic and lumbar spine normal to inspection, Thoracic/lumbar spine scar(s), Lasegue's sign negative, straight leg raise negative bilaterally, pain with thoraco-lumbar ROM, thoraco-lumbar ROM limited, No thoracic spinal tenderness and lumbar spinal tenderness at L4 and at L5 Sacroiliac joints: bilaterally tender to palpation Results Reviewed Results Reviewed: MRI OF THE CERVICAL SPINE 06/13/2007 HISTORY: 46 year old with neck pain and right upper extremity radicular symptoms. TECHNIQUE: Sagittal T1 weighted and fast spin echo T2 weighted, axial 3D fast gradient echo, and axial 3D fast spin echo. FINDINGS: The craniocervical junction, C1-2 articulations and foramen magnum are unremarkable in appearance. The cervical spinal cord is normal in signal intensity. At C2-3, the disc is of normal height and demonstrates no evidence of disc herniation or spondylosis. At C3-4, the disc is of normal height. There is mild uncovertebral spurring on the right without significant disc herniation. There is mild right sided neural foraminal narrowing. At C4-5, the disc is slightly diminished in height and there are degenerative endplate changes at this level, asymmetric to the right. There is minimal retrolisthesis at C4-5 as well without significant disc herniation. There is uncovertebral arthrosis on the right with moderate to severe right sided neural foraminal stenosis. There is no significant central spinal stenosis. At C5-6, the disc is of normal height. There is no evidence of disc herniation or significant spondylosis. There is no significant central canal or neural foraminal compromise. At C6-7, there is minimal disc space narrowing and there is a small central to left central disc herniation with mild encroachment on the central to left anterior thecal sac without cord impingement and no evidence of nerve root impingement. There is mild uncovertebral arthrosis on the left without significant neural foraminal compromise. C7-T1 is unremarkable in appearance. IMPRESSION: 1. Disc degenerative changes at C4-5 with minimal retrolisthesis at this level and right sided uncovertebral spurring with moderate to severe right sided neural foraminal stenosis. 2. Central to left central disc herniation at C6-7 with no evidence of cord impingement or nerve root compression. 3. Mild uncinate process spurring on the right at C3-4 with minimal right sided neural foraminal narrowing at this level. Assessment & Plan Assessment & Plan (1) Cervical radiculitis: Code(s): M54.12 - Radiculopathy, cervical region (2) Cervical spondylosis: Code(s): M47.812 - Spondylosis without myelopathy or radiculopathy, cervical region (3) Muscle spasm: Code(s): M62.838 - Other muscle spasm (4) Lumbar degenerative disc disease: Code(s): M51.36 - Other intervertebral disc degeneration, lumbar region (5) Lumbar spondylosis: Code(s): M47.816 - Spondylosis without myelopathy or radiculopathy, lumbar region (6) Lumbar post-laminectomy syndrome: Code(s): M96.1 - Postlaminectomy syndrome, not elsewhere classified Plan 1. Patient presents with chronic axial neck pain with accompanying headaches which most likely is facetogenic and discogenic. She also has axial back pain with intermittent sciatica symptoms and post laminectomy syndrome. We will obtain cervical and lumbar spine xray imaging to assess degree of arthritis and follow up on previous findings. 2. Patient agrees to restart formal PT for neck and back pain, prefers at [facility] as it will be closer to her home. 3. Discuss interventional treatments, including diagnostic versus therapeutic injections, peripheral nerve stimulation, SCS trial vs implant, RFA, trigger point injections, TENS unit. 4. Script provided for meloxicam, patient will stop ibuprofen. Discussed long- term complications with prolonged NSAID use. Patient instructed to monitor for any side effects. Continue heat therapy, gentle stretching exercises, muscle relaxants and good posture. All questions and concerns have been answered and patient agreed with the plan. Follow-up for x-ray results/PT and sooner as needed. Orders: Orders PT Evaluation and Treatment 07/23/23 M47.812 - Spondylosis without myelopathy or radiculopathy, cervical region, M47.816 - Spondylosis without myelopathy or radiculopathy, lumbar region, M51.36 - Other intervertebral disc degeneration, lumbar region, M54.12 - Radiculopathy, cervical region, M96.1 - Postlaminectomy syndrome, not elsewhere classified XR lumbar spine 4V min 07/23/23 M47.812 - Spondylosis without myelopathy or radiculopathy, cervical region, M47.816 - Spondylosis without myelopathy or radiculopathy, lumbar region, M51.36 - Other intervertebral disc degeneration, lumbar region, M62.838 - Other muscle spasm, M96.1 - Postlaminectomy syndrome, not elsewhere classified XR cervical spine min 6V 07/23/23 M47.812 - Spondylosis without myelopathy or radiculopathy, cervical region, M54.12 - Radiculopathy, cervical region, M62.838 - Other muscle spasm Medications: New meloxicam 15 mg PO DAILY 30 days PRN 30 tabs 0RF muscle spasm M47.812 - Spondylosis without myelopathy or radiculopathy, cervical region, M62.838 - Other muscle spasm Coding Level of Care Code New Pt Level 4 (59320) Diagnoses Cervical radiculitis M54.12 Cervical spondylosis M47.812 Muscle spasm M62.838 Lumbar degenerative disc disease M51.36 Lumbar spondylosis M47.816 Lumbar post-laminectomy syndrome M96.1
[2023-07-23 09:45] VITALS: BP 134/83; PULSE 66; O2SAT 99; BMI 21.5
== END 2023-07-23 10:17 | disposition home or self-care (01) ==
PROVIDERS: PCP Physician Assistant; Referring Provider Physician Assistant; Visit Provider Nurse Practitioner Family
DX: M54.12 Radiculopathy, cervical region (principal); M47.812 Spondylosis without myelopathy or radiculopathy, cervical region; M62.838 Other muscle spasm; M51.36 Other intervertebral disc degeneration, lumbar region; M47.816 Spondylosis without myelopathy or radiculopathy, lumbar region; M96.1 Postlaminectomy syndrome, not elsewhere classified
CPT/HCPCS: 99204

== ENCOUNTER 2023-07-23 09:39 | Outpatient (REF) | payer OTHER, SELFPAY ==
--- NOTE | ~2023-07-23 | XR_ITS ---
EXAMINATION: XR CERVICAL SPINE XR LUMBAR SPINE CLINICAL INFORMATION: Radiculopathy cervical region, muscle spasm imaging. COMPARISON: Radiographs lumbar spine 02/09/2019. Radiographs of the cervical spine TECHNIQUE: 5 views of the lumbar spine and 5 views of the cervical spine. FINDINGS: Cervical Spine: The bones are diffusely demineralized. Straightening of the normal cervical lordosis. Advanced multilevel cervical spondylosis with loss of disc space height and hypertrophic change at C3-C4, C4-C5, C5-C6, and C6-C7. Bilateral multilevel facet hypertrophy and neural foraminal encroachment at these levels. Lumbar Spine: The bones are diffusely demineralized. Visualization limited due to overlying bowel content on large amount of stool. Degenerative changes in the bilateral sacroiliac joints. Rotatory scoliosis with levoscoliosis of the lumbar spine. Degenerative changes in the imaged lower thoracic spine. Facet arthritis in the [id number]-kj-[id number] lumbar spine. Multilevel lumbar spondylosis with multilevel loss of disc space height particularly notable at L2-L3 and L5-S1. XR/XR cervical spine min 6V IMPRESSION: 1. Advanced multilevel cervical spondylosis. 2. Multilevel lumbar spondylosis. 3. Facet arthritis in the mid to lower lumbar spine. 4. The bones are diffusely demineralized, limiting sensitivity for detection of fracture or other pathology.
--- NOTE | ~2023-07-23 | XR_ITS ---
EXAMINATION: XR CERVICAL SPINE XR LUMBAR SPINE CLINICAL INFORMATION: Radiculopathy cervical region, muscle spasm imaging. COMPARISON: Radiographs lumbar spine 02/09/2019. Radiographs of the cervical spine TECHNIQUE: 5 views of the lumbar spine and 5 views of the cervical spine. FINDINGS: Cervical Spine: The bones are diffusely demineralized. Straightening of the normal cervical lordosis. Advanced multilevel cervical spondylosis with loss of disc space height and hypertrophic change at C3-C4, C4-C5, C5-C6, and C6-C7. Bilateral multilevel facet hypertrophy and neural foraminal encroachment at these levels. Lumbar Spine: The bones are diffusely demineralized. Visualization limited due to overlying bowel content on large amount of stool. Degenerative changes in the bilateral sacroiliac joints. Rotatory scoliosis with levoscoliosis of the lumbar spine. Degenerative changes in the imaged lower thoracic spine. Facet arthritis in the [id number]-[id number] lumbar spine. Multilevel lumbar spondylosis with multilevel loss of disc space height particularly notable at L2-L3 and L5-S1. XR/XR lumbar spine 4V min IMPRESSION: 1. Advanced multilevel cervical spondylosis. 2. Multilevel lumbar spondylosis. 3. Facet arthritis in the mid to lower lumbar spine. 4. The bones are diffusely demineralized, limiting sensitivity for detection of fracture or other pathology.
== END 2023-07-23 09:40 | disposition home or self-care (01) ==
LOC: HO.XRAY 09:39
PROVIDERS: PCP Physician Assistant; Referring Provider Physician Assistant; Visit Provider Nurse Practitioner Family
DX: M54.12 Radiculopathy, cervical region (principal); M62.838 Other muscle spasm; M47.816 Spondylosis without myelopathy or radiculopathy, lumbar region; M51.36 Other intervertebral disc degeneration, lumbar region; M47.812 Spondylosis without myelopathy or radiculopathy, cervical region; M96.1 Postlaminectomy syndrome, not elsewhere classified
CPT/HCPCS: 72052; 72110; 99202

== ENCOUNTER 2023-08-31 14:17 | Outpatient (AMB) | payer OTHER, SELFPAY ==
--- NOTE | 2023-08-31 14:36 | MHC.PC.OV ---
Vital Signs 08/31/23 14:37 Height 5 ft 6 in Weight 135 lb 8 oz BMI 21.9 BP 122/62 Blood Pressure Location Lt brachial Position Sitting Pulse 70 Pulse Source Pulse Oximeter Pulse Oximetry (%) 96 Oxygen Delivery Method Room Air Intake Visit Reasons: Having stomach/Gastro issues x 1 week Intake Note: The patient is presenting with nausea and abnormal stomach and bowel movements over the past week, raising concerns about the development of a stomach ulcer. Rheumatoid factor results are available, prompting a referral to a reservations and ticketing agent. Additionally, the patient requests a bone density test, which could potentially be ordered. Welt Drawer Required: No Accompanied by: Self / Same As Patient Allergies No Known Allergies Allergy (Verified 08/31/23 14:47) Medication List - Last Reconciled 08/31/23 by Cecil Gan PA-C atorvastatin 10 mg PO DAILY bupropion HCl SR 200 mg PO QAM dextroamphetamine-amphetamine 10 mg (Adderall) 10 mg PO BID lorazepam 1 mg PO BID meloxicam 15 mg PO DAILY PRN pantoprazole (Protonix) 20 mg PO DAILY 90 days sertraline 50 mg PO DAILY Tobacco use date assessed: 07/12/23 Fall risk assessment: No Falls in past year Last assessed Fall Risk: 08/31/23 Dental Screening Dental Screen Date: 07/12/23 HPI Having stomach/Gastro issues x 1 week HPI Details Patient is a 62-year-old female here today for problem visit. She reports having an episode epigastric pain and nausea . She continues to have polyarthralgia, including cervical and lumbar spine pain. She is now followed by the [facility] in considering injections. She was started on meloxicam recently which has helped a little. Since starting meloxicam she does report feeling little bit nauseous and having some epigastric pain and is concerned about no gastric ulcer. X-rays of her lumbar spine does show bone demineralization. Will try for a bone density to evaluate for osteoporosis. She does have a very elevated PETTY and does have some signs symptoms of inflammatory arthritis, she would like a 2nd opinion from Rheumatology as NSAIDs and physical therapy have not been helpful to her. [facility] Medical History Colon adenomas Cervical spondylitis Pharyngoesophageal dysphagia DONNIE (generalized anxiety disorder) Leukopenia Depression Menopause Lumbar radiculopathy Hyperlipidemia Fibromyalgia Anxiety Surgical History History of colonoscopy History of back surgery History of tubal ligation Family History Father Lung cancer Mother Lung cancer Paternal Uncle Colon cancer Social History Household Members Other:: lives with adult daughter Housing: House Alcohol intake: current Alcohol intake frequency: holidays/special occasions only Patient Tobacco Use Status: Former Tobacco user e-Cigarette/Vaping Use: Never Used Second Hand Smoke Exposure: No service: No Current occupational status: employed Current occupation: [employer] Cognitive needs: No Hearing needs: No Vision needs: No Questionnaire Thrive Questionnaire Date Thrive assessed: 07/12/23 DONNIE-7 AMB Questionnaire DONNIE-7 Date DONNIE - 7 assessed: 07/12/23 Source: Developed by Drs. Umang Bryan, Zenaida Andrade, Los Cunningham and colleagues, with an educational bala from [facility]. Review of Systems Const All systems reviewed & are unremarkable except as noted in HPI and below and unobtainable due to endotracheal tube Denies headache(s) Eyes Denies loss of vision ENT Denies vertigo, Denies dizziness, Denies headache(s) and Denies sore throat Card Denies chest pain, Denies leg edema and Denies lightheadedness Resp Denies cough, Denies hemoptysis and Denies wheezing GI Denies abdominal pain, Denies melena, Denies constipation, Denies diarrhea and Denies vomiting Denies urinary frequency, Denies dysuria and Denies urinary urgency Musc Reports back pain, Reports arthralgias, Reports joint swelling, Denies numbness and Denies tingling Neuro Denies Abnormal speech present, Denies behavioral changes, Denies vertigo, Denies dizziness, Denies headache(s), Denies loss of vision, Denies memory loss, Denies numbness and Denies tingling Psych Denies anxiety, Denies behavioral changes, Denies depression, Denies memory loss and Denies panic attacks Drew/Lymph Denies easy bleeding and Denies easy bruising Aller/Immun Denies wheezing Physical exam (Primary Care) Vital Signs: Last Vital Signs Pulse 70 08/31/23 14:37 BP 122/62 08/31/23 14:37 Pulse Ox 96 08/31/23 14:37 Oxygen Delivery Method Room Air 08/31/23 14:37 BMI result Body Mass Index 21.9 Tobacco/Smoking Status: Tobacco use Status Tobacco use date assessed 07/12/23 08/31/23 14:39 Patient Tobacco Use Status Former Tobacco user 08/31/23 14:39 e-Cigarette/Vaping Use Never Used 08/31/23 14:39 Thrive Assessment: Date of Thrive Assessment Date Thrive assessed 07/12/23 08/31/23 14:39 Const General: healthy appearing, no acute distress, alert and awake Nutritional Appearance: well nourished Orientation/consciousness: oriented to person, oriented to place and oriented to time HENMT Ears: TM's normal bilaterally General nose exam: Normal nasal mucous membranes and turbinates present Eyes Conjunctivae: conjunctivae normal Sclerae: sclerae normal Pupils: Equal, round and reactive pupils present Neck Neck: Yes no lymphadenopathy and Yes no JVD Thyroid: Thyroid normal Carotids: no bruits Resp Effort & Inspection: normal respiratory effort and not tachypneic Auscultation: no crackles, no rales, no rhonchi and no wheezes Cardio Rate: regular rate Rhythm: regular rhythm Heart sounds: no murmurs and normal S1 and S2 GI Palpation (GI): Soft to palpation, nontender, no hepatomegaly and no splenomegaly Auscultation: normal bowel sounds Skin General skin exam: no rashes or lesions noted and dry skin Neuro General: oriented to person, oriented to place and oriented to time Cranial nerves: Yes Equal, round and reactive pupils present Speech: No Abnormal speech present Gait exam (Neuro): Normal gait present Motor exam (neuro): no tremor noted Extrem Right upper extremity: full ROM Left upper extremity: full ROM Right lower extremity: full ROM; no edema Left lower extremity: full ROM; no edema Psych Mental Status: mental status grossly normal Speech and movement: Normal speech and movement present Affect: normal affect Attitude: cooperative Thought process: Normal thought process present Assessment and Plan Assessment & Plan (1) Post-menopausal: Code(s): Z78.0 - Asymptomatic menopausal state Plan: Patient's most recent x-rays showing bone demineralization. Will send for bone density evaluate for osteoporosis. (2) Lumbar degenerative disc disease: Code(s): M51.36 - Other intervertebral disc degeneration, lumbar region Plan: Patient continues to have lumbar and cervical spine pain. Now seeing pain management is considering injections. Has recently started meloxicam which has been minimally helpful. Reports having some more nausea and some epigastric pain and is concerned about an ulcer. Will supply patient with Tylenol arthritis (3) Inflammatory arthritis: Code(s): M19.90 - Unspecified osteoarthritis, unspecified site Plan: Patient does have a very elevated positive PETTY. Has seen reservations and ticketing agent at [facility] whom believe she had osteoarthritis and was to start naproxen. Considerations to start Cymbalta. She would like to see another reservations and ticketing agent as she continues to be in debilitating pain in her cervical spine, lumbar spine needs hips and ankles. (4) PETTY positive: Code(s): R76.8 - Other specified abnormal immunological findings in serum Plan: As above Orders: Orders Lipid Panel Today E78.2 - Mixed hyperlipidemia XR DEXA axial skeleton Today Z78.0 - Asymptomatic menopausal state Comprehensive [place]. Panel Fast Today E78.2 - Mixed hyperlipidemia Referrals Rheumatology Referral M19.90 - Unspecified osteoarthritis, unspecified site Medications: New acetaminophen ER (Tylenol 8 Hour) 650 mg PO Q12H 30 days 60 tabs 2RF M19.90 - Unspecified osteoarthritis, unspecified site Coding Level of Care Code Est Pt Level 4 (89513) Diagnoses Post-menopausal Z78.0 Lumbar degenerative disc disease M51.36 Inflammatory arthritis M19.90 PETTY positive R76.8
[2023-08-31 14:37] VITALS: BP 122/62; PULSE 70; O2SAT 96; BMI 21.9
== END 2023-08-31 15:10 | disposition home or self-care (01) ==
PROVIDERS: PCP Physician Assistant; Visit Provider Physician Assistant
DX: M51.36 Other intervertebral disc degeneration, lumbar region (principal); Z78.0 Asymptomatic menopausal state; M19.90 Unspecified osteoarthritis, unspecified site; R76.8 Other specified abnormal immunological findings in serum
CPT/HCPCS: 99214

== ENCOUNTER 2023-09-10 11:28 | Outpatient (AMB) | payer OTHER, SELFPAY ==
--- NOTE | 2023-09-10 11:29 | MHC.OFFVIS ---
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 She is doing well with concerns: She had a recent left labial sore that was tender had 1 episode of that 3 years ago. Pictures on her cell phone or to blurry to make an assessment . She also reports oral canker sores and has a follow-up with her motor electrician. Attempting to eat a healthy diet, and takes many vitamins, stays active with exercise walking daily. Currently not sexually active 10 yrs. ago. Last pap smear; 2022. Last mammogram; 2022. Has her appointment booked along with a bone density scan. Colonoscopy is UTD. Denies any family history of breast or ovarian, family history of colon cancer. [facility] Medical History Colon adenomas Cervical spondylitis Pharyngoesophageal dysphagia DONNIE (generalized anxiety disorder) Leukopenia Depression Menopause Lumbar radiculopathy Hyperlipidemia Fibromyalgia Anxiety Surgical History History of colonoscopy History of back surgery History of tubal ligation Family History Father Lung cancer Mother Lung cancer Paternal Uncle Colon cancer Social History Household Members Other:: lives with adult daughter Housing: House Alcohol intake: current Alcohol intake frequency: holidays/special occasions only Patient Tobacco Use Status: Former Tobacco user e-Cigarette/Vaping Use: Never Used Second Hand Smoke Exposure: No service: No Current occupational status: employed Current occupation: [employer] Cognitive needs: No Hearing needs: No Vision needs: No Female Reproductive History Menstrual Total pregnancies: 2 Full term: 2 Number of Living Children: 2 Date of last pap smear: 07/20/22 Date of Mammogram: 07/01/22 Review of Systems Const All systems reviewed & are unremarkable except as noted in HPI and below Reports as per HPI Eyes Reports no additional complaints ENT Reports no additional complaints Card Reports no additional complaints Resp Reports no additional complaints GI Reports as per HPI and Reports no additional complaints Reports as per HPI Musc Reports no additional complaints Skin/Breast Reports as per HPI Neuro Reports no additional complaints Psych Reports no additional complaints Endo Reports no additional complaints Drew/Lymph Reports no additional complaints Aller/Immun Reports no additional complaints Physical Exam Vital Signs: Last Vital Signs BP 120/72 09/10/23 11:34 BMI result Body Mass Index 21.7 Const General: cooperative, healthy appearing, no acute distress, well developed and alert Orientation/consciousness: patient oriented x3 HEENT Head: Yes normal to inspection Eyes General: appearance normal, both eyes and all related structures Neck Neck: Yes normal visual inspection Thyroid: Thyroid normal Chest Chest palpation & inspection: normal inspection of the chest and other (no puckering, dimpling, peau de orange, retraction, discharge, masses) Breast/axilla inspection: normal inspection of the breasts Breast/axilla palpation: normal palpation of the breasts Resp Effort & Inspection: normal respiratory effort GI Inspection: Yes normal to inspection Palpation (GI): Soft to palpation Rectal Exam - Female: deferred Other: No lesions on the left labial area. General: Yes bladder normal to palpation External Female Exam: normal external appearance and normal appearance of the urethra Speculum Exam - Vagina: normal appearance of the vagina, normal palpation, normal vaginal discharge and vagina atrophic Speculum Exam - Cervix: normal appearance of the cervix and normal palpation Bimanual exam- vagina & uterus: normal bimanual exam, normal palpation, uterine size normal, bladder normal to palpation, normal palpation and non-tender Bimanual Exam- Adnexa, other: no masses Skin General skin exam: no rashes or lesions noted Rashes: no rashes Neuro General: patient oriented x3 Cognition (Neuro): normal cognition Extrem General: Yes normal to inspection Psych Attitude: cooperative Thought process: Normal thought process present Assessment & Plan Assessment & Plan (1) Encounter for well woman exam with routine gynecological exam: Code(s): Z01.419 - Encounter for gynecological examination (general) (routine) without abnormal findings Plan Discussed: Current recommendations for pap smears per ASCCP guidelines. Breast awareness, periodic self breast exams and yearly mammogram. Maintain a healthy lifestyle, well balanced diet including Calcium 1,200 mg and Vitamin D 600 IU daily, and routine exercise. Offered testing for HSV through blood work, she declines today. Discussed self-help measures for vaginal dryness [id number] products reviewed including Replens. Advised if she has another lesion to come in with its onset so it can be evaluated and cultured if necessary. Contact the office with any postmenopausal bleeding. Patient verbalizes understanding and agrees to the plan of care. She was given opportunity to ask questions and all questions were answered to the best of my ability. RTO in 1 year for annual mask design engineer exam. This note is constructed using voice recognition software. While every effort has been made to ensure accuracy, warehouse pricing and inventory clerk errors may have been included.
[2023-09-10 11:34] VITALS: BP 120/72; BMI 21.7
== END 2023-09-10 12:24 | disposition home or self-care (01) ==
PROVIDERS: Visit Provider Advanced Practice Midwife
DX: Z01.419 Encounter for gynecological examination (general) (routine) without abnormal findings (principal)
CPT/HCPCS: 99396

== ENCOUNTER → 2023-09-10 11:28 | Outpatient (BNVA) | payer OTHER, SELFPAY | PROVIDERS: Visit Provider Advanced Practice Midwife | DX: Z01.419 Encounter for gynecological examination (general) (routine) without abnormal findings (principal); Z78.0 Asymptomatic menopausal state | CPT/HCPCS: 99396 ==

== ENCOUNTER 2023-09-14 09:54 | Outpatient (AMB) | payer OTHER, SELFPAY ==
--- NOTE | 2023-09-14 09:55 | A.OFFVIS_ITS ---
Vital Signs 09/14/23 09:59 Height 5 ft 6 in Weight 137 lb BMI 22.1 BP 138/72 Blood Pressure Location Rt brachial Position Sitting Pulse 64 Pulse Source Pulse Oximeter Pulse Oximetry (%) 98 Oxygen Delivery Method Room Air Intake Visit Reasons: interventional treatment discussion Intake Note: Pain today 7 Laboratory Equipment Cleaner Required: No Accompanied by: Self / Same As Patient Allergies No Known Allergies Allergy (Verified 09/14/23 09:59) HPI Comments Details: Patient presents today for follow up for neck and back pain and discuss recent xrays and potential interventions. Patient reports lower back pain has been worse than her neck pain. She presents with localized tenderness in bilateral low back pain extending to her sacral and lateral hip areas, with occasional pain radiating below knee levels. Patient reports meloxicam has been providing partial pain relief. Cervical and lumbar xrays showed advanced multilevel cervical spondylosis, multilevel lumbar spondylosis with facet arthritis in the mid to lower lumbar spine, levoscoliosis and degenerative changes in the bilateral sacroiliac joints. The bones are diffusely demineralized. Patient is scheduled for Bone scan on 09/21/23, ordered by her PCP. Patient is interested to undergo interventional treatments to address her lower back pain with facetogenic and SIJ pain components. Denies any recent cough, cold, infection, fever, any significant changes in her medical history, medications or recent hospitalizations. Oswestry Neck Disability Score=23 (moderate disability) Oswestry Low Back Disability Score=20 (moderate disability) PRIOR: Patient is a 62 years old female with prior history of cervical spondylosis, chronic headaches, lumbar radiculopathy, polyarthralgia, anxiety, depression, fibromyalgia presents today for initial evaluation of chronic neck pain with radicular symptoms and back pain with intermittent sciatica. Denies any recent trauma, injury, or falls. Reports L4-S1 back surgery in 1997. Right hand dominant. 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 She completed physical therapy in 2021 at [facility] without any significant function improvement or pain reduction. She continues with HEP and finds gentle stretching beneficial but increase pain with cervical extension, flexion and lateral rotations. Neck and back pain is constant and averages 5-8/10. Pain affects her daily activities, functioning, work, mood, sleep, social interactions, and quality of life. Denies any fever, weight loss, dizziness, chest pain, weakness, foot drop, bladder or bowel dysfunction, or saddle anesthesia. Location Neck, mid and lower back Duration Chronic pain, worsening for past 3 years Characteristics of symptom or complaint Stiff, aching, snapping burning, tingling, pinching, radiating, tight Aggravating or associated factors Movements, bending, looking down, prolonged standing Relieving factors Heat, rest, NSAIDs, Tylenol, muscle relaxant, tried Vicodin in past-helpful Treatment PT- mild benefit, chiropractic, acupuncture, back injection prior surgery PFSH Medical History Colon adenomas Cervical spondylitis Pharyngoesophageal dysphagia DONNIE (generalized anxiety disorder) Leukopenia Depression Menopause Lumbar radiculopathy Hyperlipidemia Fibromyalgia Anxiety Surgical History History of colonoscopy History of back surgery History of tubal ligation Family History Father Lung cancer Mother Lung cancer Paternal Uncle Colon cancer Social History Household Members Other:: lives with adult daughter Housing: House Alcohol intake: current Alcohol intake frequency: holidays/special occasions only Patient Tobacco Use Status: Former Tobacco user e-Cigarette/Vaping Use: Never Used Second Hand Smoke Exposure: No service: No Current occupational status: employed Current occupation: [employer] Cognitive needs: No Hearing needs: No Vision needs: No Review of Systems Const All systems reviewed & are unremarkable except as noted in HPI and below Physical Exam Vital Signs: Last Vital Signs Pulse 64 09/14/23 09:59 BP 138/72 09/14/23 09:59 Pulse Ox 98 09/14/23 09:59 Oxygen Delivery Method Room Air 09/14/23 09:59 BMI result Body Mass Index 22.1 General: Appears afebrile. Alert and oriented. Mood and affect appropriate. Follows and participates in conversation appropriately. Respiratory effort is unlabored. No cough. Able to transition from sit to stand unassisted. Ambulates with bilaterally normal heel strike and toe off. Neck Neck: Yes normal visual inspection, Yes no lymphadenopathy, Yes supple, No anterior neck swelling, Yes no JVD and No prominent dorsocervical fat pad Back/Spine/Pelvis Other: Limited lumbar ROM due to pain. Lumbar extension reproduces moderate pain, flexion reproduces mild to moderate pain. Painful facet loading bilaterally. 5/5 strength hip flexion bilaterally. Mild TTP to bilateral GTB. +Anna sign, REZA, SI distraction, Stinchfield tests bilaterally, left>right. No groin pain with I/E hip rotations bilaterally. Cervical Spine: cervical muscular tenderness, pain with cervical ROM, cervical spasm and No Cervical spine tenderness Thoracic/Lumbar Spine: thoracic and lumbar spine normal to inspection, T horacic/lumbar spine scar(s), Lasegue's sign negative, straight leg raise negative bilaterally, pain with thoraco-lumbar ROM, paraspinal muscle tenderness, thoraco-lumbar ROM limited, Thoracic/lumbar scoliosis, No thoracic spinal tenderness and lumbar spinal tenderness at L4 and at L5 Pelvis: no buttock tenderness and no sciatic notch tenderness Sacroiliac joints: bilaterally tender to palpation Results Reviewed Results Reviewed: XR CERVICAL SPINE XR LUMBAR SPINE 07/23/23 CLINICAL INFORMATION: Radiculopathy cervical region, muscle spasm imaging. COMPARISON: Radiographs lumbar spine 02/09/2019. Radiographs of the cervical spine TECHNIQUE: 5 views of the lumbar spine and 5 views of the cervical spine. FINDINGS: Cervical Spine: The bones are diffusely demineralized. Straightening of the normal cervical lordosis. Advanced multilevel cervical spondylosis with loss of disc space height and hypertrophic change at C3-C4, C4-C5, C5-C6, and C6-C7. Bilateral multilevel facet hypertrophy and neural foraminal encroachment at these levels. Lumbar Spine: The bones are diffusely demineralized. Visualization limited due to overlying bowel content on large amount of stool. Degenerative changes in the bilateral sacroiliac joints. Rotatory scoliosis with levoscoliosis of the lumbar spine. Degenerative changes in the imaged lower thoracic spine. Facet arthritis in the [id number] lumbar spine. Multilevel lumbar spondylosis with multilevel loss of disc space height particularly notable at L2-L3 and L5-S1. IMPRESSION: 1. Advanced multilevel cervical spondylosis. 2. Multilevel lumbar spondylosis. 3. Facet arthritis in the mid to lower lumbar spine. 4. The bones are diffusely demineralized, limiting sensitivity for detection of fracture or other pathology. Assessment & Plan Assessment & Plan (1) Muscle spasm: Code(s): M62.838 - Other muscle spasm Category: Medical (2) Lumbar post-laminectomy syndrome: Code(s): M96.1 - Postlaminectomy syndrome, not elsewhere classified Category: Medical (3) Cervical spondylosis: Code(s): M47.812 - Spondylosis without myelopathy or radiculopathy, cervical region Category: Medical (4) Lumbar degenerative disc disease: Code(s): M51.36 - Other intervertebral disc degeneration, lumbar region Category: Medical (5) Lumbar spondylosis: Code(s): M47.816 - Spondylosis without myelopathy or radiculopathy, lumbar region Category: Medical (6) Sacroiliac joint pain: Code(s): M53.3 - Sacrococcygeal disorders, not elsewhere classified Category: Medical Plan Cervical and spine imaging results reviewed with gloria today. Patient is interested to undergo interventional treatments to address her lower back pain with facetogenic and SIJ pain component and address neck pain at next time. Schedle Bilateral Diagnostic Sacroiliac Joint Injections with local and fluoroscopy. We discussed potential longer term treatments for SIJ related pain, including therapeutic injections, SI joint fusion, PNS trial vs implant and RFA procedures. Recent xray and exam consistent with bilateral SIJ and axial low back pain. If no relief with SIJ injections, will proceed with lumbar medial branch blocks. Expectations, risks and benefits were reviewed. Patient is aware she will be contacted to schedule this procedure. Patient also has diffusely demineralized bones and has pending Bone scan on 09/21/23. Reports taking Vitamin D and calcium through dietary sources. Reviewed with patient effects of steroidal injections in post-menopausal women can lead to bone loss and risk of compression fractures. Will review bone scan results prior to any therapeutic injections. Continue meloxicam prn with food and adequate fluid intake. Patient will trial chlorzoxazone for muscle spasms in neck and lower back. Side effects and precautions reviewed with patient. All questions and concerns have been answered and patient agreed with the plan. Follow up after injections and sooner if needed. Medications: New chlorzoxazone 500 mg PO DAILY PRN 30 tabs 0RF muscle spasm M47.812 - Spondylosis without myelopathy or radiculopathy, cervical region, M62.838 - Other muscle spasm, M96.1 - Postlaminectomy syndrome, not elsewhere classified Coding Level of Care Code Est Pt Level 4 (65795) Diagnoses Muscle spasm M62.838 Lumbar post-laminectomy syndrome M96.1 Cervical spondylosis M47.812 Lumbar degenerative disc disease M51.36 Lumbar spondylosis M47.816 Sacroiliac joint pain M53.3
[2023-09-14 09:59] VITALS: BP 138/72; PULSE 64; O2SAT 98; BMI 22.1
== END 2023-09-14 10:50 | disposition home or self-care (01) ==
PROVIDERS: PCP Physician Assistant; Visit Provider Nurse Practitioner Family
DX: M62.838 Other muscle spasm (principal); M96.1 Postlaminectomy syndrome, not elsewhere classified; M47.812 Spondylosis without myelopathy or radiculopathy, cervical region; M51.36 Other intervertebral disc degeneration, lumbar region; M47.816 Spondylosis without myelopathy or radiculopathy, lumbar region; M53.3 Sacrococcygeal disorders, not elsewhere classified
CPT/HCPCS: 99214

== ENCOUNTER → 2023-09-14 09:54 | Outpatient (BNVA) | payer OTHER, SELFPAY | PROVIDERS: PCP Physician Assistant; Visit Provider Nurse Practitioner Family | DX: M62.838 Other muscle spasm (principal); M96.1 Postlaminectomy syndrome, not elsewhere classified; M47.812 Spondylosis without myelopathy or radiculopathy, cervical region; M51.36 Other intervertebral disc degeneration, lumbar region; M47.816 Spondylosis without myelopathy or radiculopathy, lumbar region; M53.3 Sacrococcygeal disorders, not elsewhere classified | CPT/HCPCS: 99212 ==

== ENCOUNTER 2023-09-21 08:54 | Outpatient (REF) | payer OTHER, SELFPAY ==
--- NOTE | ~2023-09-21 | MM_ITS ---
EXAMINATION: BONE DENSITOMETRY CLINICAL INDICATION: Asymptomatic menopausal state. COMPARISON: This is the patient's baseline examination. TECHNIQUE: Using a [employer] DXA System (software version: 13.1) manufactured by [employer], dual-energy x-ray absorptiometry was performed of the lumbar spine and left hip. The images are of good technical quality. Summary results are attached. FINDINGS: LEFT FEMUR, NECK: BMD 0.771 g/cm2, Z-score -0.4, T-score -1.9, osteopenia. LEFT FEMUR, TOTAL: BMD 0.826 g/cm2, Z-score -0.2, T-score -1.4, osteopenia. AP SPINE L1-L4: BMD 0.954 g/cm2, Z-score -0.2, T-score -1.9, osteopenia. IDENTIFIED RISK FACTORS: Menopause, rheumatoid arthritis, low calcium intake. HISTORY OF FRACTURE: None listed. MEDICATIONS: Vitamin D. MM/XR DEXA axial skeleton IMPRESSION: 1. DIAGNOSIS: Osteopenia based on the lowest T-score value of -1.9 in the femoral neck and lumbar spine applying World Health Organization criteria. 2. 10-YEAR FRACTURE RISK PREDICTION, FRAX: Major osteoporotic fracture (clinical spine, forearm, hip or shoulder) 12.4%. Hip fracture 2.1%. 3. Treatment Recommendations: NOF guidelines recommend consideration for treatment in postmenopausal women and men age 50 and older presenting with the following: -A hip or vertebral (clinical or morphometric) fracture. -T-score less than or equal to -2.5 at the femoral neck or spine after appropriate evaluation to exclude secondary causes. -Low bone mass at the hip or spine and a 10-year fracture probability by FRAX of greater than or equal to 3% for hip fracture or greater than or equal to 20% for major osteoporotic fracture based on the [place] adapted WHO algorithm. 4. Other Recommendations: All treatment decisions require clinical judgment and consideration of individual patient factors, including patient preferences, comorbidities, previous drug use, risk factors not captured in the FRAX model (e.g. frailty, falls, vitamin D deficiency, increased bone turnover, interval significant decline in bone density) and possible under or overestimation of fracture risk by FRAX. Additional medical evaluation for secondary cause of low bone mineral density may be appropriate. FUTURE SCAN RECOMMENDATION: People with diagnosed cases of osteoporosis or at high risk for fracture should have regular bone mineral density tests. For patients eligible for Medicare, routine testing is allowed once every 2 years. The testing frequency can be increased to one year for patients who have rapidly progressing disease, those who are receiving or discontinuing medical therapy to restore bone mass, or have additional risk factors.
--- NOTE | ~2023-09-21 | MM_ITS ---
EXAMINATION: MM SCREENING DIGITAL BREAST TOMOSYNTHESIS, BILATERAL CLINICAL INFORMATION: Screening. Asymptomatic. COMPARISON: Mammography: This study is compared with prior exams dating back to 2013. TECHNIQUE: Digital breast tomosynthesis is performed in both the craniocaudal and mediolateral oblique views along with computer-aided detection (CAD). Synthesized 2D images are generated from the tomosynthesis. FINDINGS: The breasts are heterogeneously dense, which may obscure small masses (ACR BI-RADS breast composition Category c). There are no significant masses, abnormal calcifications, or other abnormalities. MM/MM tomosynthesis screening BI IMPRESSION: No mammographic evidence of malignancy. ASSESSMENT: BI-RADS BI-RADS 1 - Negative RECOMMENDATION: Routine annual mammography screening. 1 year F/U This examination should not preclude the clinical evaluation of a suspicious palpable abnormality. This patient's information was entered into a reminder system with a target due date for their next mammogram.
== END 2023-09-21 08:55 | disposition home or self-care (01) ==
LOC: HO.MAMMO 08:54
PROVIDERS: PCP Physician Assistant; Visit Provider Physician Assistant
DX: Z12.31 Encounter for screening mammogram for malignant neoplasm of breast (principal); Z13.820 Encounter for screening for osteoporosis; Z78.0 Asymptomatic menopausal state
CPT/HCPCS: 77063; 77067; 77080

== ENCOUNTER → 2023-09-21 09:15 | Outpatient (BNV) | payer OTHER, SELFPAY | PROVIDERS: PCP Physician Assistant; Visit Provider Radiology Diagnostic Radiology | DX: Z12.31 Encounter for screening mammogram for malignant neoplasm of breast (principal) | CPT/HCPCS: 77063; 77067 ==

== ENCOUNTER 2023-11-02 12:41 | Outpatient (AMB) | payer OTHER, SELFPAY ==
[2023-11-02 13:09] VITALS: BP 122/70; PULSE 75; O2SAT 96; BMI 22.1
--- NOTE | 2023-11-02 13:09 | MHC.OFFVIS ---
Vital Signs 11/02/23 13:09 Height 5 ft 6 in Weight 136 lb 14.513 oz BMI 22.1 BP 122/70 Blood Pressure Location Rt brachial Position Sitting Pulse 75 Pulse Source Pulse Oximeter Pulse Oximetry (%) 96 Oxygen Delivery Method Room Air Intake Visit Reasons: + PETTY Intake Note: New pt presents today for +PETTY consult, internally referred. 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 Madera 62-year-old female who presents for evaluation for possible nflammatory arthritis given her multiple joint pain and highly positive PETTY. Her PCP referred her for a positive PETTY 1:640. Patient states that over the last 4 years she has been having diffuse joint pain especially in her neck, all over her back, and also intermittent pain swelling and stiffness of her hands. She has generalized morning stiffness that lasts 2-3 hours. She showed me a picture of swelling of her left ulnar styloid, this was treated with prednisone by her PCP. She was evaluated by Dr. Torres in 2021 and further labs were ordered in the context of a positive PETTY but patient did not follow-up as the bed worker was leaving the practice. Patient states that whenever her wrist and hands hurt, she took Tylenol, meloxicam and ibuprofen 800 mg daily all with minimal relief. Tylenol was most helpful. She denies any skin rashes, dry eyes, dry mouth, photosensitivity, difficulty swallowing, and hair loss. She had a colonoscopy in the past which showed polyps and diverticulosis. She denies any history of DVT/ PE, pluritis and pericarditis, fevers and headaches. She denies unexplained weight loss. --Denies uveitis. She has a sister with Raynaud's, another sister with ulcerative colitis. Father had plaque psoriasis. Three of her sisters have thyroid disease. --she describes a hx recurring oral ulcers - none on PE PM Visit 09/14/2023 Patient presents today for follow up for neck and back pain and discuss recent xrays and potential interventions. Patient reports lower back pain has been worse than her neck pain. She presents with localized tenderness in bilateral low back pain extending to her sacral and lateral hip areas, with occasional pain radiating below knee levels. Patient reports meloxicam has been providing partial pain relief. Cervical and lumbar xrays showed advanced multilevel cervical spondylosis, multilevel lumbar spondylosis with facet arthritis in the mid to lower lumbar spine, levoscoliosis and degenerative changes in the bilateral sacroiliac joints. The bones are diffusely demineralized. Patient is scheduled for Bone scan on 09/21/23, ordered by her PCP. Patient is interested to undergo interventional treatments to address her lower back pain with facetogenic and SIJ pain components. Denies any recent cough, cold, infection, fever, any significant changes in her medical history, medications or recent hospitalizations. Oswestry Neck Disability Score=23 (moderate disability) Oswestry Low Back Disability Score=20 (moderate disability) 08/31/2023 PCP Visit Patient is a 62-year-old female here today for problem visit. She reports having an episode epigastric pain and nausea . She continues to have polyarthralgia, including cervical and lumbar spine pain. She is now followed by the [facility] in considering injections. She was started on meloxicam recently which has helped a little. Since starting meloxicam she does report feeling little bit nauseous and having some epigastric pain and is concerned about no gastric ulcer. X-rays of her lumbar spine does show bone demineralization. Will try for a bone density to evaluate for osteoporosis. She does have a very elevated PETTY and does have some signs symptoms of inflammatory arthritis, she would like a 2nd opinion from Rheumatology as NSAIDs and physical therapy have not been helpful to her. [facility] Medical History (Updated 11/12/23 @ 00:26 by ALEC Denson) Osteopenia after menopause Colon adenomas Cervical spondylitis Pharyngoesophageal dysphagia DONNIE (generalized anxiety disorder) Leukopenia Depression Menopause Lumbar radiculopathy Hyperlipidemia Fibromyalgia Anxiety Surgical History History of colonoscopy History of back surgery History of tubal ligation Family History Father Lung cancer Plaque psoriasis Mother Lung cancer Paternal Uncle Colon cancer Sister Raynaud's disease Social History Household Members Other:: lives with adult daughter Housing: House Alcohol intake: current Alcohol intake frequency: holidays/special occasions only Patient Tobacco Use Status: Former Tobacco user e-Cigarette/Vaping Use: Never Used Second Hand Smoke Exposure: No service: No Current occupational status: employed 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 Cognitive needs: No Hearing needs: No Vision needs: No Female Reproductive History Menstrual Total pregnancies: 2 Full term: 2 Number of Living Children: 2 Date of last pap smear: 07/20/22 Date of Mammogram: 07/01/22 Review of Systems Const All systems reviewed & are unremarkable except as noted in HPI and below Reports fatigue, Denies fever(s) and Denies weight loss ENT Reports dysphagia, Reports neck pain and Reports tinnitus Card Reports dyspnea Resp Reports dyspnea GI Reports dysphagia, Reports diarrhea and Reports nausea Musc Reports back pain, Reports arthralgias, Reports joint swelling, Reports neck pain and Reports stiffness Skin/Breast Reports alopecia and Denies rash Psych Reports abnormal sleep pattern, Reports anxiety and Reports depression Endo Reports fatigue Physical Exam Vital Signs: Last Vital Signs Pulse 75 11/02/23 13:09 BP 122/70 11/02/23 13:09 Pulse Ox 96 11/02/23 13:09 Oxygen Delivery Method Room Air 11/02/23 13:09 BMI result Body Mass Index 22.1 APPEARANCE: Patient in no acute distress EYES no redness, normal EARS:? External ear normal. NOSE/SINUS:? Airflow through both nares, no nasal discharge, no bleeding THROAT:? Oral mucosa moist, no ulcerations NECK:? No thyromegaly or masses, no adenopathy, trachea midline. HEART:? Regular rhythm, S1-S2 heard, no murmurs, rubs or gallops. LUNG:? Clear to percussion and auscultation EXTREMITIES:? No edema, no calf tenderness, normal peripheral pulses. NEURO:? Oriented and alert x3.? No focal weakness.? Reflexes symmetric.? Gait normal. SKIN:? There are no skin lesions evident. No objective signs of Raynaud's phenomenon. JOINT EXAM: Cervical Spine:.? Full range of motion without pain; paraspinal tenderness. Thoracic Spine:.? No scoliosis.? No tenderness on palpation. Lumbar Spine:.? Alignment normal.? Full range of motion without pain, but tenderness to paraspinal areas. Chest Wall:.? No tenderness, swelling, increased warmth or erythema. Hands:.? Normal range of motion with mild tenderness, but no swelling, increased warmth or erythema. Able to make a full fist and but with decreased pin puller strength and mild discomfort Wrists:.? Normal pain-free range of motion with tenderness but no swelling, increased warmth or erythema. Elbows:. Normal pain-free range of motion without tenderness, swelling, increased warmth or erythema. Shoulders:.?? Full range of motion without pain. No tenderness, weakness, swelling, increased warmth or erythema. Hips:.? Full range of motion without pain. Hip bursa:.? No tenderness. Knees:.?? Normal pain-free range of motion without tenderness, swelling, increased warmth or erythema.? There is no effusion or crepitation Ankles:.? Normal pain-free range of motion without tenderness, swelling, increased warmth or erythema. Feet:.? Normal pain-free range of motion without tenderness, swelling, increased warmth or erythema. Tender points:? No tenderness to digital palpation at the occiput, trapezius, second rib, lateral epicondyle, knees, greater trochanter and gluteal area bilaterally. ? Const General: cooperative, healthy appearing and comfortable Nutritional Appearance: average body habitus Orientation/consciousness: patient oriented x3 Limitations: no limitations HEENT Head: Yes normocephalic and Yes atraumatic Mouth: moist mucous membranes Resp Effort & Inspection: normal respiratory effort and able to speak in complete sentences Auscultation: clear to auscultation bilaterally Cardio Rate: regular rate Rhythm: regular rhythm GI Inspection: No distended Palpation (GI): Soft to palpation and nontender Skin General skin exam: no rashes or lesions noted Neuro General: patient oriented x3 Extrem Other: Mild osteoarthritic changes of both hands with no active synovitis No swollen or tender joints today Normal nailfold capillaroscopy No nail pitting Normal range of motion of elbows and shoulders without pain Negative resisted wrist extension test and resisted wrist flexion test bilaterally Negative rotator cuff provocative maneuvers bilaterally Negative Speed's test bilaterally Range of motion of neck bilaterally Negative straight leg raise test bilaterally Negative Fabere test bilaterally Normal range of motion of knees without pain No ankle swelling or tenderness bilaterally negative MTP squeeze test bilaterally Results Reviewed Results Reviewed: Laboratory Tests 07/20/23 10:04 WBC 3.7 L RBC 4.28 Hgb 13.1 Hct 39.9 Anion Gap 9 L Creatinine 0.74 Estimated GFR > 60 TSH 0.83 Rheumatoid Factor < 13.0 Cycl Citrul Peptide IgG <16 PETTY Titer 1:640 H PETTY Pattern Nuclear, Homogeneous A Laboratory Tests 02/15/20 10:10 Rheumatoid Factor < 15.0 PETTY Titer 1:320 H Laboratory Tests 02/15/20 03/25/21 06/05/21 10:10 13:30 08:20 WBC 3.6 L 3.8 L 3.7 L TECHNIQUE: 5 views of the lumbar spine and 5 views of the cervical spine. FINDINGS: Cervical Spine: The bones are diffusely demineralized. Straightening of the normal cervical lordosis. Advanced multilevel cervical spondylosis with loss of disc space height and hypertrophic change at C3-C4, C4-C5, C5-C6, and C6-C7. Bilateral multilevel facet hypertrophy and neural foraminal encroachment at these levels. Lumbar Spine: The bones are diffusely demineralized. Visualization limited due to overlying bowel content on large amount of stool. Degenerative changes in the bilateral sacroiliac joints. Rotatory scoliosis with levoscoliosis of the lumbar spine. Degenerative changes in the imaged lower thoracic spine. Facet arthritis in the [id number] lumbar spine. Multilevel lumbar spondylosis with multilevel loss of disc space height particularly notable at L2-L3 and L5-S1. XR/XR lumbar spine 4V min IMPRESSION: 1. Advanced multilevel cervical spondylosis. 2. Multilevel lumbar spondylosis. 3. Facet arthritis in the mid to lower lumbar spine. 4. The bones are diffusely demineralized, limiting sensitivity for detection of fracture or other pathology. MM/XR DEXA axial skeleton IMPRESSION: 1. DIAGNOSIS: Osteopenia based on the lowest T-score value of -1.9 in the femoral neck and lumbar spine applying World Health Organization criteria. 2. 10-YEAR FRACTURE RISK PREDICTION, FRAX: Major osteoporotic fracture (clinical spine, forearm, hip or shoulder) 12.4%. Hip fracture 2.1%. 3. Treatment Recommendations: NOF guidelines recommend consideration for treatment in postmenopausal women and men age 50 and older presenting with the following: Assessment & Plan Assessment & Plan (1) PETTY positive: Code(s): R76.8 - Other specified abnormal immunological findings in serum Category: Medical Plan: this is a 62-year-old female who presents for evaluation of diffuse joint pain for the last 4 years. She has a positive family history of plaque psoriasis in her father, ulcerative colitis in her sister, strong family history of thyroid disease. Will order comprehensive serology to screen for underlying autoimmune rheumatic disease. Check x-rays of hands and SI joints to evaluate for inflammatory arthropathy Follow-up 4-5 weeks (2) Inflammatory arthritis: Code(s): M19.90 - Unspecified osteoarthritis, unspecified site Category: Medical (3) Lumbar spondylosis: Code(s): M47.816 - Spondylosis without myelopathy or radiculopathy, lumbar region Category: Medical (4) Sacroiliac joint pain: Code(s): M53.3 - Sacrococcygeal disorders, not elsewhere classified Category: Medical (5) Leukopenia: Code(s): D72.819 - Decreased white blood cell count, unspecified Category: Medical Qualifiers: Leukopenia type: neutropenia Neutropenia type: unspecified Qualified Code(s): D70.9 - Neutropenia, unspecified (6) Osteopenia after menopause: Code(s): M85.80 - Other specified disorders of bone density and structure, unspecified site; Z78.0 - Asymptomatic menopausal state Category: Medical Plan #+PETTY/Hand and Wrist:The patient with a strong positive PETTY 1:640, and strong family history of seronegative inflammatory arthritis, with prevalence for spondyloarthropathy. This may be contributory to her lower back pain and the intermittent swelling to her hands and wrist. I will obtain labs and imaging for further workup. #Multilevel Spine DDD: She is also following with Pain management and considering SI joint and lumbar injections. She has not had adequate relief with Ibuprofen 800 mg, was started on Meloxicam 15 mg QD and also takes Tylenol 650 mg Q12hr. . #Osteopenia: T-Score -1.9 - Followed by PCP. Takes Protonix. I recommend patient to start Calcium and Vitamin D and Fosamax. I spent 43 minutes reviewing patient's history,evaluating patient, ordering diagnostic workup, counseling patient and documenting. f/u 6 weeks Orders: Orders Comprehensive Met. Panel 11/09/23 M19.90 - Unspecified osteoarthritis, unspecified site Protein Electrophoresis, Serum 11/09/23 M19.90 - Unspecified osteoarthritis, unspecified site [facility] IBD SGI 11/09/23 K52.9 - Noninfective gastroenteritis and colitis, unspecified Anti Extractable Nuclear Ag 11/09/23 M32.9 - Systemic lupus erythematosus, unspecified Complement C3 11/09/23 M32.9 - Systemic lupus erythematosus, unspecified Sjogren's Antibodies 11/09/23 M32.9 - Systemic lupus erythematosus, unspecified Thyroglobulin Antibodies 11/09/23 E07.9 - Disorder of thyroid, unspecified Thyroid Peroxidase Antibodies 11/09/23 E07.9 - Disorder of thyroid, unspecified XR hand wrist LT 11/09/23 M19.90 - Unspecified osteoarthritis, unspecified site Complete Blood Count Auto Diff 11/09/23 M19.90 - Unspecified osteoarthritis, unspecified site C Reactive Protein 11/09/23 M19.90 - Unspecified osteoarthritis, unspecified site Erythrocyte Sedimentation Rate 11/09/23 M19.90 - Unspecified osteoarthritis, unspecified site Hepatitis A,B,C Profile 11/09/23 Z11.59 - Encounter for screening for other viral diseases Immunofixation Pnl, Serum 11/09/23 M19.90 - Unspecified osteoarthritis, unspecified site T Spot TB 11/09/23 Z22.7 - Latent tuberculosis HLA B27 11/09/23 M45.9 - Ankylosing spondylitis of unspecified sites in spine Anti DNA DS Antibody 11/09/23 M32.9 - Systemic lupus erythematosus, unspecified Complement C4 11/09/23 M32.9 - Systemic lupus erythematosus, unspecified DNA Double Stranded-Crithidia 11/09/23 M32.9 - Systemic lupus erythematosus, unspecified Protein Creatinine Ratio, Ur 11/09/23 M32.9 - Systemic lupus erythematosus, unspecified UA w Microscopic 11/09/23 M32.9 - Systemic lupus erythematosus, unspecified HLA B51 Behcet's Disease 11/09/23 K12.0 - Recurrent oral aphthae TSH reflex Free T4 11/09/23 E07.9 - Disorder of thyroid, unspecified XR sacroiliac joint min 3V 11/09/23 M19.90 - Unspecified osteoarthritis, unspecified site XR hand wrist RT 11/09/23 M19.90 - Unspecified osteoarthritis, unspecified site Coding Level of Care Code New Pt Level 4 (71505) Diagnoses PETTY positive R76.8 Inflammatory arthritis M19.90 Lumbar spondylosis M47.816 Sacroiliac joint pain M53.3 Neutropenia, unspecified type D70.9 Leukopenia type: neutropenia Neutropenia type: unspecified Osteopenia after menopause M85.80; Z78.0
== END 2023-11-02 14:24 | disposition home or self-care (01) ==
PROVIDERS: PCP Physician Assistant; Visit Provider Student in an Organized Health Care Education/Training Program
DX: R76.8 Other specified abnormal immunological findings in serum (principal); M19.90 Unspecified osteoarthritis, unspecified site; M47.816 Spondylosis without myelopathy or radiculopathy, lumbar region; M53.3 Sacrococcygeal disorders, not elsewhere classified; D70.9 Neutropenia, unspecified; M85.80 Other specified disorders of bone density and structure, unspecified site; Z78.0 Asymptomatic menopausal state
CPT/HCPCS: 99204

== ENCOUNTER → 2023-11-02 12:41 | Outpatient (BNVA) | payer OTHER, SELFPAY | PROVIDERS: PCP Physician Assistant; Visit Provider Student in an Organized Health Care Education/Training Program | DX: R76.8 Other specified abnormal immunological findings in serum (principal); M19.90 Unspecified osteoarthritis, unspecified site; M47.816 Spondylosis without myelopathy or radiculopathy, lumbar region; M53.3 Sacrococcygeal disorders, not elsewhere classified; D70.9 Neutropenia, unspecified; M85.80 Other specified disorders of bone density and structure, unspecified site; Z78.0 Asymptomatic menopausal state | CPT/HCPCS: 99202 ==

== ENCOUNTER 2023-11-09 12:38 | Outpatient (REF) | payer OTHER, SELFPAY ==
--- NOTE | ~2023-11-09 | XR_ITS ---
EXAMINATION: XR BILATERAL WRISTS CLINICAL INFORMATION: Osteoarthritis. COMPARISON: None available. TECHNIQUE: 4 views of each wrist. FINDINGS: RIGHT HAND: Bones are diffusely demineralized. Moderate degenerative changes in the first carpometacarpal joint with joint space narrowing and hypertrophic change. Alignment maintained. LEFT HAND: Bones are diffusely demineralized. Moderate degenerative changes in the first carpometacarpal joint with joint space narrowing and hypertrophic change. Alignment maintained. XR/XR hand wrist LT IMPRESSION: Moderate degenerative changes bilateral first carpometacarpal joints.
--- NOTE | ~2023-11-09 | XR_ITS ---
EXAMINATION: XR SACROILIAC JOINTS CLINICAL INFORMATION: Unspecified osteoarthritis COMPARISON: 07/23/2023, 02/09/2019 lumbar spine radiographs TECHNIQUE: 3 views of the sacroiliac joints FINDINGS: Degenerative changes in the imaged lower lumbar spine. Bones are diffusely demineralized. Moderate degenerative changes in the bilateral sacroiliac joints with joint space narrowing and hypertrophic change. XR/XR sacroiliac joint min 3V IMPRESSION: Moderate degenerative changes in the bilateral sacroiliac joints.
--- NOTE | ~2023-11-09 | XR_ITS ---
EXAMINATION: XR BILATERAL WRISTS CLINICAL INFORMATION: Osteoarthritis. COMPARISON: None available. TECHNIQUE: 4 views of each wrist. FINDINGS: RIGHT HAND: Bones are diffusely demineralized. Moderate degenerative changes in the first carpometacarpal joint with joint space narrowing and hypertrophic change. Alignment maintained. LEFT HAND: Bones are diffusely demineralized. Moderate degenerative changes in the first carpometacarpal joint with joint space narrowing and hypertrophic change. Alignment maintained. XR/XR hand wrist RT IMPRESSION: Moderate degenerative changes bilateral first carpometacarpal joints.
[2023-11-09 13:05] LABS: MANUAL DIFF FLAG NO
[2023-11-09 13:41] LABS: Appearance Urine Clear; Color Urine Yellow; Glucose Urine UA Negative (Negative); Leukocyte Esterase Urine Negative (Negative); Nitrite Urine Negative (Negative); Specific Gravity - Urine <= 1.005 (1.005-1.025); Urine Blood Negative (Negative); Urine Ketones Negative (Negative); Urine Protein Negative (Neg-Trace)
[2023-11-09 13:42] LABS: Basophils Percent Auto 0.6 % (0-2); Eosinophils Percent Auto 0.8 % (0-4); Hematocrit 39.4 % (37.0-47.0); Hemoglobin 13.2 g/dl (12.0-16.0); Lymphocytes Absolute Auto 1.3 X10*3/uL (1.2-4.9); Lymphocytes Percent Auto 35.1 % (20-40); Mean Corpuscular HGB Conc 33.5 g/dl (31.0-35.0); Mean Corpuscular Volume 92.5 fL (80.0-98.0); Monocytes Absolute Auto 0.2 X10*3/uL (0.1-1.2); Monocytes Percent Auto 6.1 % (2-11); Neutrophils Absolute Auto 2.1 x10*3/uL (2.0-8.3); Neutrophils Percent Auto 57.4 % (45-73); Platelet Count 311 X10*3/uL (160-400); Red Blood Count 4.26 X10*6/uL (4.20-5.50); White Blood Count 3.6 X10*3/uL (4.8-10.8)
[2023-11-09 13:44] LABS: Bacteria Urine None Seen (None Seen); Hyaline Casts Urine 0-2 /LPF (0-2); RBC Urine 0-2 /HPF (0-2); Squamous Epithelial Cell Urine 0-2 /HPF (0-2); WBC Urine 0-5 /HPF (0-5)
[2023-11-09 14:11] LABS: Creatinine Urine 38.54 mg/dL; Total Protein Urine Random < 7 mg/dL (<12)
[2023-11-09 14:15] LABS: Alanine Aminotransferase 24 U/L (0-31); Albumin Level 4.5 g/dL (3.5-5.0); Alkaline Phosphatase 72 U/L (39-117); Anion Gap 11 (12-20); Aspartate Amino Transferase 23 U/L (5-31); Bilirubin Total 0.9 mg/dL (0.0-1.0); Blood Urea Nitrogen 8 mg/dL (9-16); C Reactive Protein < 0.04 mg/dL (< or = 0.50); Calcium 9.1 mg/dL (8.4-10.2); Carbon Dioxide 28 mmol/L (22-29); Chloride 106 mmol/L (96-108); Estimated Glomerular Filt Rate > 60; Glucose Random 84 mg/dL (60-115); Potassium 3.4 mmol/L (3.3-5.1); Sodium 142 mmol/L (135-145); Total Protein 7.7 g/dL (6.5-8.0)
[2023-11-09 14:20] LABS: Erythrocyte Sedimentation Rate 14 MM/HR (0-20)
[2023-11-09 14:28] LABS: TSH reflex Free T4 0.82 uIU/mL (0.32-4.0)
[2023-11-10 04:20] LABS: HBS Num1 17.51 mIU/mL (0-7.99); HBc Num1 0.15 S/CO (0.00-0.79); HBsAGNum1 0.33 S/CO (0.00-0.99); Hepatitis A Antibody IgM 0.17 Index (0-0.79); Hepatitis B Core Antibody Nonreactive (Nonreactive); Hepatitis B Surface Antigen Negative (Negative); ~Hepatitis A Antibody IgM Nonreactive (Nonreactive); ~Hepatitis B Surface Antibody REACTIVE (Nonreactive); ~Hepatitis C Antibody Nonreactive (Nonreactive)
[2023-11-10 10:10] LABS: Complement C3 47 mg/dL (83-193)
[2023-11-10 12:23] LABS: Thyroglobulin Antibodies 4 IU/mL (< or = 1); Thyroid Peroxidase Antibodies 1 IU/mL (<9)
[2023-11-10 23:28] LABS: Anti DNA DS Antibody 1 IU/mL; Antibody to SS-A Antigen <1.0 NEG AI (<1.0 NEG); Antibody to SS-B Antigen <1.0 NEG AI (<1.0 NEG); SM/Ribonucleoprotein Ab <1.0 NEG AI (<1.0 NEG); Smith Protein <1.0 NEG AI (<1.0 NEG)
[2023-11-11 22:13] LABS: Prot Elec - Albumin 4.6 g/dL (3.8-4.8); Prot Elec - Alpha1 0.3 g/dL (0.2-0.3); Prot Elec - Alpha2 0.7 g/dL (0.5-0.9); Prot Elec - Beta 1 0.5 g/dL (0.4-0.6); Prot Elec - Beta 2 0.4 g/dL (0.2-0.5); Prot Elec - Gamma 0.9 g/dL (0.8-1.7); Prot Elec - Total Protein 7.2 g/dL (6.1-8.1)
[2023-11-12 07:43] LABS: TS Negative Control Passed; TS Panel A 0; TS Panel B 0; TS Positive Control Passed; TSpotTB Negative (Negative)
[2023-11-12 13:17] LABS: IgA 214 mg/dL (70-320); IgG 940 mg/dL (600-1540); IgM 255 mg/dL (50-300)
[2023-11-12 20:34] LABS: HLA B27 Negative (Negative)
[2023-11-16 19:17] LABS: HLA B51 Comments See Comments; HLA B51 Method PCR SSOP
[2023-11-17 14:43] LABS: DNAds, Crithidia Antibody Negative (Negative)
== END 2023-11-09 12:39 | disposition home or self-care (01) ==
LOC: HO.LAB 12:38
PROVIDERS: PCP Physician Assistant; Visit Provider Student in an Organized Health Care Education/Training Program
DX: M19.90 Unspecified osteoarthritis, unspecified site (principal); K52.9 Noninfective gastroenteritis and colitis, unspecified; M32.9 Systemic lupus erythematosus, unspecified; E07.9 Disorder of thyroid, unspecified; Z11.59 Encounter for screening for other viral diseases; Z22.7 Latent tuberculosis; M45.9 Ankylosing spondylitis of unspecified sites in spine; K12.0 Recurrent oral aphthae
CPT/HCPCS: 36415; 72202; 73110; 73130; 80053; 81001; 81374; 81405; 81479; 82397; 82570; 82784; 83520; 84156; 84165; 84443; 85025; 85652; 86140; 86160; 86225; 86235; 86255; 86334; 86376; 86481; 86704; 86706; 86709; 86800; 86803; 86812; 87340; 88346; 88350

== ENCOUNTER 2023-12-14 10:37 | Outpatient (AMB) | payer OTHER, SELFPAY ==
[2023-12-14 10:50] VITALS: BP 120/68; PULSE 69; O2SAT 96; BMI 22.0
--- NOTE | 2023-12-14 10:50 | MHC.OFFVIS ---
Vital Signs 12/14/23 10:50 Height 5 ft 6 in Weight 136 lb 7.458 oz BMI 22.0 BP 120/68 Blood Pressure Location Lt brachial Position Sitting Pulse 69 Pulse Source Pulse Oximeter Pulse Oximetry (%) 96 Oxygen Delivery Method Room Air Intake Visit Reasons: + PETTY/CM Intake Note: Patient last see on 11/02/2023 present today for follow up and test results. Accompanied by: Self / Same As Patient Allergies No Known Allergies Allergy (Verified 12/14/23 10:54) Medication List - Last Reconciled 12/14/23 by Axel Agosto MD acetaminophen ER (Tylenol 8 Hour) 650 mg PO Q12H 30 days atorvastatin 10 mg PO DAILY bupropion HCl SR 200 mg PO QAM chlorzoxazone 500 mg PO DAILY PRN dextroamphetamine-amphetamine 10 mg (Adderall) 10 mg PO BID lorazepam 1 mg PO BID meloxicam 15 mg PO DAILY PRN pantoprazole (Protonix) 20 mg PO DAILY 90 days sertraline 50 mg PO DAILY tretinoin 0.05% appl topical HPI Comments Details: Patient returns for follow-up after completion of her diagnostic workup. She continues to feel about the same. She stated that a few weeks ago she woke up 1 day with right wrist swelling. The swelling eventually resolved. She took Tylenol. She does not take ibuprofen as it causes GI upset. Stated that she had left ear swelling and erythema a few weeks ago that self-resolved. She does not go out in the sun. She denies photosensitivity. States that she has been having more hair loss recently. Initial history: This is 62-year-old female who presents for evaluation for possible nflammatory arthritis given her multiple joint pain and highly positive PETTY. Her PCP referred her for a positive PETTY 1:640. Patient states that over the last 4 years she has been having diffuse joint pain especially in her neck, all over her back, and also intermittent pain swelling and stiffness of her hands. She has generalized morning stiffness that lasts 2-3 hours. She showed me a picture of swelling of her left ulnar styloid, this was treated with prednisone by her PCP. She was evaluated by Dr. Torres in 2021 and further labs were ordered in the context of a positive PETTY but patient did not follow-up as the senior net architect was leaving the practice. Patient states that whenever her wrist and hands hurt, she took Tylenol, meloxicam and ibuprofen 800 mg daily all with minimal relief. Tylenol was most helpful. She denies any skin rashes, dry eyes, dry mouth, photosensitivity, difficulty swallowing, and hair loss. She had a colonoscopy in the past which showed polyps and diverticulosis. She denies any history of DVT/ PE, pluritis and pericarditis, fevers and headaches. She denies unexplained weight loss. --Denies uveitis. She has a sister with Raynaud's, another sister with ulcerative colitis. Father had plaque psoriasis. Three of her sisters have thyroid disease. --she describes a hx recurring oral ulcers - none on PE [facility] Medical History Osteopenia after menopause Colon adenomas Cervical spondylitis Pharyngoesophageal dysphagia DONNIE (generalized anxiety disorder) Leukopenia Depression Menopause Lumbar radiculopathy Hyperlipidemia Fibromyalgia Anxiety Surgical History History of colonoscopy History of back surgery History of tubal ligation Family History Father Lung cancer Plaque psoriasis Mother Lung cancer Paternal Uncle Colon cancer Sister Raynaud's disease Social History Household Members Other:: lives with adult daughter Housing: House Alcohol intake: current Alcohol intake frequency: holidays/special occasions only Patient Tobacco Use Status: Former Tobacco user e-Cigarette/Vaping Use: Never Used Second Hand Smoke Exposure: No service: No Current occupational status: employed 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 Cognitive needs: No Hearing needs: No Vision needs: No Female Reproductive History Menstrual Total pregnancies: 2 Full term: 2 Number of Living Children: 2 Date of last pap smear: 07/20/22 Date of Mammogram: 07/01/22 Review of Systems Const All systems reviewed & are unremarkable except as noted in HPI and below Reports fatigue, Denies fever(s) and Denies weight loss ENT Reports dysphagia, Reports neck pain and Reports tinnitus Card Reports dyspnea Resp Reports dyspnea GI Reports dysphagia, Reports diarrhea and Reports nausea Musc Reports back pain, Reports arthralgias, Reports joint swelling, Reports neck pain and Reports stiffness Skin/Breast Reports alopecia and Denies rash Psych Reports abnormal sleep pattern, Reports anxiety and Reports depression Endo Reports fatigue Physical Exam Vital Signs: Last Vital Signs Pulse 69 12/14/23 10:50 BP 120/68 12/14/23 10:50 Pulse Ox 96 12/14/23 10:50 Oxygen Delivery Method Room Air 12/14/23 10:50 BMI result Body Mass Index 22.0 Const General: cooperative, healthy appearing and comfortable Nutritional Appearance: average body habitus Orientation/consciousness: patient oriented x3 Limitations: no limitations HEENT Head: Yes normocephalic and Yes atraumatic Mouth: moist mucous membranes Resp Effort & Inspection: normal respiratory effort and able to speak in complete sentences Auscultation: clear to auscultation bilaterally Cardio Rate: regular rate Rhythm: regular rhythm GI Inspection: No distended Palpation (GI): Soft to palpation and nontender Skin General skin exam: no rashes or lesions noted Neuro General: patient oriented x3 Extrem Other: Mild osteoarthritic changes of both hands with no active synovitis No swollen or tender joints today Normal nailfold capillaroscopy No nail pitting Normal range of motion of elbows and shoulders without pain Negative resisted wrist extension test and resisted wrist flexion test bilaterally Negative rotator cuff provocative maneuvers bilaterally Negative Speed's test bilaterally Range of motion of neck bilaterally Negative straight leg raise test bilaterally Negative Fabere test bilaterally Normal range of motion of knees without pain No ankle swelling or tenderness bilaterally negative MTP squeeze test bilaterally Results Reviewed Results Reviewed: Laboratory Tests 07/20/23 10:04 WBC 3.7 L RBC 4.28 Hgb 13.1 Hct 39.9 Anion Gap 9 L Creatinine 0.74 Estimated GFR > 60 TSH 0.83 Rheumatoid Factor < 13.0 Cycl Citrul Peptide IgG <16 PETTY Titer 1:640 H PETTY Pattern Nuclear, Homogeneous A Laboratory Tests 02/15/20 10:10 Rheumatoid Factor < 15.0 PETTY Titer 1:320 H Laboratory Tests 02/15/20 03/25/21 06/05/21 10:10 13:30 08:20 WBC 3.6 L 3.8 L 3.7 L TECHNIQUE: 5 views of the lumbar spine and 5 views of the cervical spine. FINDINGS: Cervical Spine: The bones are diffusely demineralized. Straightening of the normal cervical lordosis. Advanced multilevel cervical spondylosis with loss of disc space height and hypertrophic change at C3-C4, C4-C5, C5-C6, and C6-C7. Bilateral multilevel facet hypertrophy and neural foraminal encroachment at these levels. Lumbar Spine: The bones are diffusely demineralized. Visualization limited due to overlying bowel content on large amount of stool. Degenerative changes in the bilateral sacroiliac joints. Rotatory scoliosis with levoscoliosis of the lumbar spine. Degenerative changes in the imaged lower thoracic spine. Facet arthritis in the [id number] lumbar spine. Multilevel lumbar spondylosis with multilevel loss of disc space height particularly notable at L2-L3 and L5-S1. XR/XR lumbar spine 4V min IMPRESSION: 1. Advanced multilevel cervical spondylosis. 2. Multilevel lumbar spondylosis. 3. Facet arthritis in the mid to lower lumbar spine. 4. The bones are diffusely demineralized, limiting sensitivity for detection of fracture or other pathology. MM/XR DEXA axial skeleton IMPRESSION: 1. DIAGNOSIS: Osteopenia based on the lowest T-score value of -1.9 in the femoral neck and lumbar spine applying World Health Organization criteria. 2. 10-YEAR FRACTURE RISK PREDICTION, FRAX: Major osteoporotic fracture (clinical spine, forearm, hip or shoulder) 12.4%. Hip fracture 2.1%. 3. Treatment Recommendations: NOF guidelines recommend consideration for treatment in postmenopausal women and men age 50 and older presenting with the following: Assessment & Plan Assessment & Plan (1) PETTY positive: Code(s): R76.8 - Other specified abnormal immunological findings in serum Category: Medical Plan: This is a 62-year-old female who presents for evaluation of diffuse pain pain for the last 4 years. She has a positive family history of plaque psoriasis in her father, ulcerative colitis in her sister, strong family history of thyroid disease. Patient gets episodes of joint swelling that are very short-lived and do not last as long. States that she gets intermittent rashes on her ears as well as hair loss. Her labs showed a positive PETTY homogeneous pattern, positive thyroglobulin antibody, low C3 and C4 with normal inflammatory markers, no cytopenias and negative serologies otherwise. Her positive thyroglobulin antibody can explain her positive PETTY At this time I do not think patient does fulfill criteria for any specific autoimmune rheumatic disease. Episodic joint pain and swelling can be an early feature of a seronegative spondyloarthropathy or a mild case of lupus/UCTD. Advised patient to keep a log of her symptoms such as swollen joints, painful joints, take pictures of any swollen joints or rashes. Re-evaluate in 6 months. Blood work before next visit in 6 months (2) Fibromyalgia, primary: Code(s): M79.7 - Fibromyalgia Plan: The ongoing persistent diffuse body aches and pain are likely due to underlying fibromyalgia. Discussed management of fibromyalgia with patient. Is a noninflammatory, non-autoimmune central afferent processing disorder leading to a diffuse pain syndrome. Patient follows up regularly with a psychiatrist. Advised evaluation by a therapist. Try to follow sleep hygiene practices. Consider a referral for a sleep study by her PCP. Patient would benefit from increased physical activity, either through formal physical therapy or by joining a gym. Advised patient that she should start activity slowly and increase as tolerated. Consider low-impact exercises such as walking, swimming, aqua therapy stretching, yoga. Plan I spent 30 minutes reviewing patient's chart, evaluating patient, ordering diagnostic workup, counseling patient and documenting in the chart Orders: Orders Protein Creatinine Ratio, Ur 6 Months M32.9 - Systemic lupus erythematosus, unspecified Complete Blood Count Auto Diff 6 Months M32. - Systemic lupus erythematosus, unspecified Comprehensive Met. Panel 6 Months M32. - Systemic lupus erythematosus, unspecified Complement C3 6 Months M32.9 - Systemic lupus erythematosus, unspecified Complement C4 6 Months M32.9 - Systemic lupus erythematosus, unspecified Anti DNA DS Antibody 6 Months M32.9 - Systemic lupus erythematosus, unspecified C Reactive Protein 6 Months M32.9 - Systemic lupus erythematosus, unspecified Erythrocyte Sedimentation Rate 6 Months M32.9 - Systemic lupus erythematosus, unspecified UA w Microscopic 6 Months M32.9 - Systemic lupus erythematosus, unspecified Coding Level of Care Code Est Pt Level 4 (32504) Diagnoses PETTY positive R76.8 Fibromyalgia, primary M79.7
== END 2023-12-14 11:33 | disposition home or self-care (01) ==
PROVIDERS: PCP Physician Assistant; Visit Provider Student in an Organized Health Care Education/Training Program
DX: R76.8 Other specified abnormal immunological findings in serum (principal); M79.7 Fibromyalgia
CPT/HCPCS: 99214

== ENCOUNTER → 2023-12-14 10:37 | Outpatient (BNVA) | payer OTHER, SELFPAY | PROVIDERS: PCP Physician Assistant; Visit Provider Student in an Organized Health Care Education/Training Program | DX: R76.8 Other specified abnormal immunological findings in serum (principal); M79.7 Fibromyalgia | CPT/HCPCS: 99212 ==

== ENCOUNTER 2024-01-18 11:38 | Outpatient (AMB) | payer MEDICARE, SELFPAY ==
--- NOTE | 2024-01-18 11:46 | MHC.PC.OV ---
Vital Signs 01/18/24 11:47 Height 5 ft 6 in Weight 138 lb 2 oz BMI 22.3 BP 108/62 Blood Pressure Location Lt brachial Position Sitting Pulse 62 Pulse Source Pulse Oximeter Pulse Oximetry (%) 97 Oxygen Delivery Method Room Air Intake Visit Reasons: f/u Cervical spine Associate Required: No Accompanied by: Self / Same As Patient Allergies No Known Allergies Allergy (Verified 01/18/24 11:56) Medication List - Last Reconciled 01/18/24 by Cecil Gan PA-C acetaminophen ER (Tylenol 8 Hour) 650 mg PO Q12H 30 days atorvastatin 10 mg PO DAILY bupropion HCl SR 200 mg PO QAM chlorzoxazone 500 mg PO DAILY PRN dextroamphetamine-amphetamine 10 mg (Adderall) 10 mg PO BID lorazepam 1 mg PO BID meloxicam 15 mg PO DAILY PRN pantoprazole (Protonix) 20 mg PO DAILY 90 days sertraline 50 mg PO DAILY tretinoin 0.05% appl topical Tobacco use date assessed: 07/12/23 Fall risk assessment: No Falls in past year Last assessed Fall Risk: 01/18/24 Dental Screening Dental Screen Date: 07/12/23 HPI f/u Cervical spine HPI Details Patient is a 63-year-old female here today for a follow-up visit. She continues to have polyarthralgia, including cervical and lumbar spine pain. . She was started on meloxicam recently which has helped a little. Has followed up with [facility] in has gotten extensive lab testing though have not met the level autoimmune inflammatory arthritis. Patient continues to be pain especially in her neck and lower back. She used to the naproxen should be helpful. Does have Tylenol that she uses from time to time. She has use Robaxin in the past with decent affect on reducing her pain. Of note did follow with pain management few months ago and was offered injections though were not covered through insurance. She is apprehensive on starting injections at this time will hold off for now. Hyperlipidemia: Has continue on atorvastatin 10 mg without side effect. Most recent lipid panel done in 07/13/2023 showing elevated total cholesterol and LDL. She is working on lifestyle and dietary modifications. . [facility] Medical History Osteopenia after menopause Colon adenomas Cervical spondylitis Pharyngoesophageal dysphagia DONNIE (generalized anxiety disorder) Leukopenia Depression Menopause Lumbar radiculopathy Hyperlipidemia Fibromyalgia Anxiety Surgical History History of colonoscopy History of back surgery History of tubal ligation Family History Father Lung cancer Plaque psoriasis Mother Lung cancer Paternal Uncle Colon cancer Sister Raynaud's disease Social History Household Members Other:: lives with adult daughter Housing: House Alcohol intake: current Alcohol intake frequency: holidays/special occasions only Patient Tobacco Use Status: Former Tobacco user e-Cigarette/Vaping Use: Never Used Second Hand Smoke Exposure: No service: No Current occupational status: employed 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 Umang Bryan, Zenaida Andrade, Los Cunningham and colleagues, with an educational bala from [employer]. Review of Systems Const Denies headache(s) Eyes Denies loss of vision ENT Denies vertigo, Denies dizziness, Denies headache(s), Reports neck pain and Denies sore throat Card Denies chest pain, Denies leg edema and Denies lightheadedness Resp Denies cough, Denies hemoptysis and Denies wheezing GI Denies abdominal pain, Denies melena, Denies constipation, Denies diarrhea and Denies vomiting Denies urinary frequency, Denies dysuria and Denies urinary urgency Musc Reports back pain, Reports arthralgias, Denies joint swelling, Reports neck pain, Denies numbness and Denies tingling Neuro Denies Abnormal speech present, Denies behavioral changes, Denies vertigo, Denies dizziness, Denies headache(s), Denies loss of vision, Denies memory loss, Denies numbness and Denies tingling Psych Denies anxiety, Denies behavioral changes, Denies depression, Denies memory loss and Denies panic attacks Drew/Lymph Denies easy bleeding and Denies easy bruising Aller/Immun Denies wheezing Physical exam (Primary Care) Vital Signs: Last Vital Signs Pulse 62 01/18/24 11:47 BP 108/62 01/18/24 11:47 Pulse Ox 97 01/18/24 11:47 Oxygen Delivery Method Room Air 01/18/24 11:47 BMI result Body Mass Index 22.3 Tobacco/Smoking Status: Tobacco use Status Tobacco use date assessed 07/12/23 01/18/24 11:48 Patient Tobacco Use Status Former Tobacco user 01/18/24 11:48 e-Cigarette/Vaping Use Never Used 01/18/24 11:48 Thrive Assessment: Date of Thrive Assessment Date Thrive assessed 07/12/23 01/18/24 11:48 Const General: healthy appearing, no acute distress, alert and awake Nutritional Appearance: well nourished Orientation/consciousness: oriented to person, oriented to place and oriented to time HENMT Ears: TM's normal bilaterally General nose exam: Normal nasal mucous membranes and turbinates present Eyes Conjunctivae: conjunctivae normal Sclerae: sclerae normal Pupils: Equal, round and reactive pupils present Neck Neck: Yes no lymphadenopathy and Yes no JVD Thyroid: Thyroid normal Carotids: no bruits Resp Effort & Inspection: normal respiratory effort and not tachypneic Auscultation: no crackles, no rales, no rhonchi and no wheezes Cardio Rate: regular rate Rhythm: regular rhythm Heart sounds: no murmurs and normal S1 and S2 GI Palpation (GI): Soft to palpation, nontender, no hepatomegaly and no splenomegaly Auscultation: normal bowel sounds Skin General skin exam: no rashes or lesions noted and dry skin Neuro General: oriented to person, oriented to place and oriented to time Cranial nerves: Yes Equal, round and reactive pupils present Speech: No Abnormal speech present Gait exam (Neuro): Normal gait present Motor exam (neuro): no tremor noted Extrem Right upper extremity: full ROM Left upper extremity: full ROM Right lower extremity: full ROM; no edema Left lower extremity: full ROM; no edema Psych Mental Status: mental status grossly normal Speech and movement: Normal speech and movement present Affect: normal affect Attitude: cooperative Thought process: Normal thought process present Assessment and Plan Assessment & Plan (1) Lumbar degenerative disc disease: Code(s): M51.36 - Other intervertebral disc degeneration, lumbar region Plan: Patient continues to have lumbar and cervical spine pain. She is considering injections in her SI joint for lower back pain though will hold off on injections for now. Will manage her pain with p.r.n. use of methocarbamol, naproxen and Tylenol. (2) HLD (hyperlipidemia): Code(s): E78.5 - Hyperlipidemia, unspecified Qualifiers: Hyperlipidemia type: mixed hyperlipidemia Qualified Code(s): E78.2 - Mixed hyperlipidemia Plan: Patient does have history of elevated total cholesterol and LDL. Continues on atorvastatin 10 mg. Has been working on lifestyle modifications and dietary modifications to control her cholesterol. Will recheck a lipid panel. Goal LDL to be below 160 Medications: New methocarbamol 750 mg PO Q8H 10 days PRN 30 tabs 2RF pain (scale score 7-10) M51.36 - Other intervertebral disc degeneration, lumbar region naproxen 375 mg PO BID 30 days PRN 60 tabs 0RF pain M51.36 - Other intervertebral disc degeneration, lumbar region Refilled acetaminophen ER (Tylenol 8 Hour) 650 mg PO Q12H 30 days 60 tabs 2RF M19.90 - Unspecified osteoarthritis, unspecified site Discontinued chlorzoxazone Discontinued Reason: Doctor's Order 500 mg PO DAILY PRN 30 tabs 0RF muscle spasm M47.812 - Spondylosis without myelopathy or radiculopathy, cervical region, M62.838 - Other muscle spasm, M96.1 - Postlaminectomy syndrome, not elsewhere classified meloxicam Take it with food and full glass of water. Avoid other NSAIDs (Ibuprofen) while taking this medication. Discontinued Reason: Doctor's Order 15 mg PO DAILY PRN 30 tabs 0RF for muscle spasm M47.812 - Spondylosis without myelopathy or radiculopathy, cervical region, M62.838 - Other muscle spasm Patient Instructions: Goal: LDL to be below 130 Barriers: Chronic pain, adherence to physical activity and healthy eating habits Coding Level of Care Code Est Pt Level 4 (64681) Diagnoses Lumbar degenerative disc disease M51.36 Mixed hyperlipidemia E78.2 Hyperlipidemia type: mixed hyperlipidemia
[2024-01-18 11:47] VITALS: BP 108/62; PULSE 62; O2SAT 97; BMI 22.3
== END 2024-01-18 12:15 | disposition home or self-care (01) ==
PROVIDERS: PCP Physician Assistant; Visit Provider Physician Assistant
DX: M51.36 Other intervertebral disc degeneration, lumbar region (principal); E78.2 Mixed hyperlipidemia
CPT/HCPCS: 99214

== ENCOUNTER 2024-02-08 10:26 | Outpatient (REF) | payer MEDICARE, MEDICAID, SELFPAY ==
--- NOTE | ~2024-02-08 | XR_ITS ---
EXAMINATION: XR SINUSES CLINICAL INFORMATION: Sinusitis COMPARISON: None available. TECHNIQUE: 3 views of the sinuses were obtained. FINDINGS: The left frontal sinus is hypoplastic. There is opacification of a few of the right ethmoid air cells. There is no significant opacification of the remainder the paranasal sinuses. There are no air-fluid levels. No fractures are identified. No radiodense foreign bodies. XR/XR sinus min 3V IMPRESSION: Opacification of a few of the right ethmoid air cells. If there is continued clinical concern, dedicated CT scan of the paranasal sinuses could be obtained. Electronically signed by: Sharmila Sin MD 03/02/2024 01:14 PM EDT RP
== END 2024-02-08 10:27 | disposition home or self-care (01) ==
LOC: HO.XRAY 10:26
PROVIDERS: PCP Physician Assistant; Visit Provider Otolaryngology
DX: J32.9 Chronic sinusitis, unspecified (principal)
CPT/HCPCS: 70220

== ENCOUNTER 2024-05-04 13:30 | Emergency (ER) | payer MEDICARE, MEDICAID, SELFPAY ==
[2024-05-04 13:47] VITALS: BP 143/80; PULSE 81; RESP 18; TEMP 36.7; O2SAT 97; BMI 22.1
--- NOTE | 2024-05-04 13:53 | ED.BACK ---
HPI - Back Pain/Injury General Chief Complaint: Back Pain/Injury Stated Complaint: back pain Related Data Home Medications ?Medication ?Instructions ?Recorded ?Confirmed dextroamphetamine-amphetamine 10 10 mg PO BID 11/05/20 01/18/24 mg tablet (Adderall) bupropion HCl 200 mg tablet,12 hr 200 mg PO QAM 10/07/22 01/18/24 sustained-release lorazepam 1 mg tablet 1 mg PO BID 07/12/23 01/18/24 sertraline 50 mg tablet 50 mg PO DAILY 07/12/23 01/18/24 tretinoin 0.05 % topical cream appl topical 09/14/23 01/18/24 Previous Rx's ?Medication ?Instructions ?Recorded pantoprazole 20 mg tablet,delayed 20 mg PO DAILY 90 days #90 tabs 07/12/23 release (Protonix) acetaminophen 650 mg 650 mg PO Q12H 30 days #60 tabs 01/18/24 tablet,extended release (Tylenol 8 Hour) atorvastatin 10 mg tablet 10 mg PO DAILY #90 tabs 02/15/24 naproxen 375 mg tablet 375 mg PO BID PRN pain 30 days #60 03/28/24 tabs meloxicam 15 mg tablet 15 mg PO DAILY 90 days #90 tabs 05/03/24 methocarbamol 750 mg tablet 750 mg PO Q8H PRN pain (scale 05/04/24 score 7-10) 10 days #30 tabs oxycodone 5 mg tablet 5 mg PO Q8H PRN pain 5 days #15 05/04/24 tabs prednisone 10 mg tablet 10 mg PO DIRECTED 9 days #18 05/04/24 tabs Allergies Allergy/AdvReac Type Severity Reaction Status Date / Time No Known Allergies Allergy Verified 05/04/24 13:48 [facility] Past Medical History Medical History Osteopenia after menopause Colon adenomas Cervical spondylitis Pharyngoesophageal dysphagia DONNIE (generalized anxiety disorder) Leukopenia Depression Menopause Lumbar radiculopathy Hyperlipidemia Fibromyalgia Anxiety Surgical History History of colonoscopy History of back surgery History of tubal ligation Family History Family History Father Lung cancer Plaque psoriasis Mother Lung cancer Paternal Uncle Colon cancer Sister Raynaud's disease Social History Social History Household Members Other:: lives with adult daughter Housing: House Alcohol intake: current Alcohol intake frequency: holidays/special occasions only Patient Tobacco Use Status: Former Tobacco user e-Cigarette/Vaping Use: Never Used Second Hand Smoke Exposure: No service: No Current occupational status: employed 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 The patient is a 63-year-old female with known arthritis, osteopenia, degenerative disc disease of the lumbar spine, status post prior laminectomy, depression, presents with back pain. Patient states she has been having progressively worsening lower back pain over the past several months. Over the past day, her pain has increased in severity. Discomfort radiates down bilateral lower extremities, with associated ?numbness of both legs?. Patient states she feels as if she can not fully empty her bladder. Denies bowel incontinence. Denies weakness of lower extremities. On exam, the patient is tearful, strength is equal in both bilateral lower extremities, she is ambulatory. She can also detect me palpating both lower extremities. We will screen basic labs, I foresee her having imaging, unclear if we have the capacity to obtain an MRI today. The patient is hemodynamically stable and can return to the waiting room pending her full medical assessment. Medications Administered Discontinued Medications Generic Name Dose Route Start Last Admin Trade Name Freq PRN Reason Stop Dose Admin Ketorolac Tromethamine 15 mg 05/04/24 15:10 05/04/24 15:13 Ketorolac Tromethamine 15 Mg/Ml Vial IM 05/04/24 15:11 15 mg ONCE ONE Administration Medical Decision Making Lab Data 05/04/24 14:14 05/04/24 14:14 Labs: Lab Results 05/04/24 Range/Units 14:14 WBC 3.5 L (4.8-10.8) X10*3/uL RBC 3.99 L (4.20-5.50) X10*6/uL Hgb 12.5 (12.0-16.0) g/dl Hct 36.2 L (37.0-47.0) % MCV 90.7 (80.0-98.0) fL MCH 31.3 (27.0-33.0) pg MCHC 34.5 (31.0-35.0) g/dl RDW 12.6 (11.0-16.0) % Plt Count 258 (160-400) X10*3/uL MPV 8.4 L (9.4-12.3) fL Immature Gran % (Auto) 0.0 (0.0-0.4) % Neut % (Auto) 52.0 (45-73) % Lymph % (Auto) 35.6 (20-40) % [place] % (Auto) 10.9 (2-11) % Eos % (Auto) 0.9 (0-4) % Baso % (Auto) 0.6 (0-2) % Lymph # (Auto) 1.2 (1.2-4.9) X10*3/uL [place] # (Auto) 0.4 (0.1-1.2) X10*3/uL Eos # (Auto) 0.0 (0.0-0.4) X10*3/uL Baso # (Auto) 0.0 (0.0-0.2) X10*3/uL Abs Immat Gran (auto) 0.00 (0.00-0.03) X10*3/uL Absolute Neuts (auto) 1.8 L (2.0-8.3) x10*3/uL Absolute Nucleated RBC 0.000 (0.0-0.012) X10*3/uL Nucleated RBC % (auto) 0.0 (0.0-0.2) /100WBC Sodium 141 (135-145) mmol/L Potassium 3.9 (3.3-5.1) mmol/L Chloride 107 (96-108) mmol/L Carbon Dioxide 24 (22-29) mmol/L Anion Gap 14 (12-20) BUN 10 (9-16) mg/dL Creatinine 0.84 (0.5-1.4) mg/dL Estim Creat Clear Calc 62.5 Estimated GFR > 60 Random Glucose 94 (60-115) mg/dL Calcium 9.1 (8.4-10.2) mg/dL Magnesium 2.1 (1.6-2.6) mg/dL Discharge Plan Discharge Clinical Impression: Lumbar radiculopathy Patient Disposition: Left Without Being Seen Interventions: LWBS Worksheet Last Done: 05/04/24 16:00 Discharge Date/Time: 05/04/24 16:01
[2024-05-04 14:18] LABS: MANUAL DIFF FLAG NO
[2024-05-04 14:19] LABS: Basophils Percent Auto 0.6 % (0-2); Eosinophils Percent Auto 0.9 % (0-4); Hematocrit 36.2 % (37.0-47.0); Hemoglobin 12.5 g/dl (12.0-16.0); Lymphocytes Absolute Auto 1.2 X10*3/uL (1.2-4.9); Lymphocytes Percent Auto 35.6 % (20-40); Mean Corpuscular HGB Conc 34.5 g/dl (31.0-35.0); Mean Corpuscular Hemoglobin 31.3 pg (27.0-33.0); Mean Corpuscular Volume 90.7 fL (80.0-98.0); Mean Platelet Volume 8.4 fL (9.4-12.3); Monocytes Absolute Auto 0.4 X10*3/uL (0.1-1.2); Monocytes Percent Auto 10.9 % (2-11); Neutrophils Absolute Auto 1.8 x10*3/uL (2.0-8.3); Platelet Count 258 X10*3/uL (160-400); Red Blood Count 3.99 X10*6/uL (4.20-5.50); Red Cell Distribution Width 12.6 % (11.0-16.0); White Blood Count 3.5 X10*3/uL (4.8-10.8)
[2024-05-04 14:35] LABS: Anion Gap 14 (12-20); Blood Urea Nitrogen 10 mg/dL (9-16); Calcium 9.1 mg/dL (8.4-10.2); Carbon Dioxide 24 mmol/L (22-29); Chloride 107 mmol/L (96-108); Creatinine Clr Calc Pharmacy 62.5; Estimated Glomerular Filt Rate > 60; Glucose Random 94 mg/dL (60-115); Magnesium 2.1 mg/dL (1.6-2.6); Potassium 3.9 mmol/L (3.3-5.1); Sodium 141 mmol/L (135-145)
[2024-05-04] MEDS: Ketorolac Tromethamine 15 MG/ML VIAL IM (15:13)
== END 2024-05-04 16:01 | disposition left against medical advice (07) ==
PROVIDERS: Physician Assistant Medical; Emergency Provider Emergency Medicine; PCP Physician Assistant
DX: M54.16 Radiculopathy, lumbar region (principal); M54.50 Low back pain, unspecified; Z53.21 Procedure and treatment not carried out due to patient leaving prior to being seen by health care provider
CPT/HCPCS: 36415; 80048; 83735; 85025; 96372; 99282; 99284; J1885

== ENCOUNTER 2024-05-08 13:23 | Outpatient (AMB) | payer MEDICARE, MEDICAID, SELFPAY ==
[2024-05-08 13:27] VITALS: BP 130/80; PULSE 80; O2SAT 98; BMI 22.8
--- NOTE | 2024-05-08 13:27 | MHC.PC.OV ---
Vital Signs 05/08/24 13:27 Height 5 ft 6 in Weight 141 lb 4 oz BMI 22.8 BP 130/80 Blood Pressure Location Lt brachial Position Sitting Pulse 80 Pulse Source Pulse Oximeter Pulse Oximetry (%) 98 Oxygen Delivery Method Room Air Intake Visit Reasons: MRI request Operations Support Professionals Required: No Accompanied by: Self / Same As Patient Allergies No Known Allergies Allergy (Verified 05/08/24 13:55) Medication List - Last Reconciled 05/08/24 by Cecil Gan PA-C acetaminophen ER (Tylenol 8 Hour) 650 mg PO Q12H 30 days atorvastatin 10 mg PO DAILY bupropion HCl SR 200 mg PO QAM dextroamphetamine-amphetamine 10 mg (Adderall) 10 mg PO BID lorazepam 1 mg PO BID meloxicam 15 mg PO DAILY 90 days methocarbamol 750 mg PO Q8H PRN 10 days naproxen 375 mg PO BID PRN 30 days oxycodone 5 mg PO Q8H PRN 5 days pantoprazole (Protonix) 20 mg PO DAILY 90 days prednisone 10 mg PO DIRECTED 9 days sertraline 50 mg PO DAILY tretinoin 0.05% appl topical Tobacco use date assessed: 07/12/23 Dental Screening Dental Screen Date: 07/12/23 HPI MRI request HPI Details The patient is a 63-year-old female presenting with severe back and neck pain. She reports an exacerbation of chronic sciatica, now affecting both legs, with pain radiating from her back into her neck and causing headaches. She visited the emergency room due to intense pain rated at 10 out of 10, where she received a Toradol injection providing some relief. She describes the persistence of pain, despite medication including meloxicam and a steroid taper. Her condition has progressively worsened, despite past treatments such as physical therapy and ibuprofen. She experiences numbness and tingling in both arms and legs, with burning sensations in her toes. Her symptoms are aggravated by physical activities, and she describes PTSD due to episodes of severe pain. Despite resting and using heat and ice for pain management, her symptoms remain severe. She previously underwent lumbar spinal surgery at [id number] and has been diagnosed with cervical foraminal stenosis at C4-C5, confirmed by X-rays. The patient reports using prescriptions as directed, including muscle relaxants, though they provide limited relief PFSH Medical History Osteopenia after menopause Colon adenomas Cervical spondylitis Pharyngoesophageal dysphagia DONNIE (generalized anxiety disorder) Leukopenia Depression Menopause Lumbar radiculopathy Hyperlipidemia Fibromyalgia Anxiety Surgical History History of colonoscopy History of back surgery History of tubal ligation Family History Father Lung cancer Plaque psoriasis Mother Lung cancer Paternal Uncle Colon cancer Sister Raynaud's disease Social History Household Members Other:: lives with adult daughter Housing: House Alcohol intake: current Alcohol intake frequency: holidays/special occasions only Patient Tobacco Use Status: Former Tobacco user e-Cigarette/Vaping Use: Never Used Second Hand Smoke Exposure: No service: No Current occupational status: employed 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 Umang Bryan, Zenaida Andrade, Los Cunningham and colleagues, with an educational bala from [employer]. Review of Systems Const Denies headache(s) Eyes Denies loss of vision ENT Denies vertigo, Denies dizziness, Denies headache(s) and Denies sore throat Card Denies chest pain, Denies leg edema and Denies lightheadedness Resp Denies cough, Denies hemoptysis and Denies wheezing GI Denies abdominal pain, Denies melena, Denies constipation, Denies diarrhea and Denies vomiting Denies urinary frequency, Denies dysuria and Denies urinary urgency Musc Denies arthralgias, Denies joint swelling, Denies numbness and Denies tingling Neuro Denies Abnormal speech present, Denies behavioral changes, Denies vertigo, Denies dizziness, Denies headache(s), Denies loss of vision, Denies memory loss, Denies numbness and Denies tingling Psych Denies anxiety, Denies behavioral changes, Denies depression, Denies memory loss and Denies panic attacks Drew/Lymph Denies easy bleeding and Denies easy bruising Aller/Immun Denies wheezing Physical exam (Primary Care) Vital Signs: Last Vital Signs Pulse 80 05/08/24 13:27 BP 130/80 05/08/24 13:27 Pulse Ox 98 05/08/24 13:27 Oxygen Delivery Method Room Air 05/08/24 13:27 BMI result Body Mass Index 22.8 Tobacco/Smoking Status: Tobacco use Status Tobacco use date assessed 07/12/23 05/08/24 13:28 Patient Tobacco Use Status Former Tobacco user 05/08/24 13:28 e-Cigarette/Vaping Use Never Used 05/08/24 13:28 Thrive Assessment: Date of Thrive Assessment Date Thrive assessed 07/12/23 05/08/24 13:28 Const General: healthy appearing, no acute distress, alert and awake Nutritional Appearance: well nourished Orientation/consciousness: oriented to person, oriented to place and oriented to time HENMT Ears: TM's normal bilaterally General nose exam: Normal nasal mucous membranes and turbinates present Eyes Conjunctivae: conjunctivae normal Sclerae: sclerae normal Pupils: Equal, round and reactive pupils present Neck Other: SOME LIMITED RANGE OF MOTION OF THE CERVICAL SPINE TO ROTATIONAL RANGE OF MOTION AND FLEXION Neck: Yes no lymphadenopathy and Yes no JVD Thyroid: Thyroid normal Carotids: no bruits Resp Effort & Inspection: normal respiratory effort and not tachypneic Auscultation: no crackles, no rales, no rhonchi and no wheezes Cardio Rate: regular rate Rhythm: regular rhythm Heart sounds: no murmurs and normal S1 and S2 GI Palpation (GI): Soft to palpation, nontender, no hepatomegaly and no splenomegaly Auscultation: normal bowel sounds Skin General skin exam: no rashes or lesions noted and dry skin Neuro General: oriented to person, oriented to place and oriented to time Cranial nerves: Yes Equal, round and reactive pupils present Speech: No Abnormal speech present Gait exam (Neuro): Normal gait present Motor exam (neuro): no tremor noted Extrem Right upper extremity: full ROM Left upper extremity: full ROM Right lower extremity: full ROM; no edema Left lower extremity: full ROM; no edema Psych Mental Status: mental status grossly normal Speech and movement: Normal speech and movement present Affect: normal affect Attitude: cooperative Thought process: Normal thought process present Coding Level of Care Code Est Pt Level 4 (00809) Diagnoses Cervical radiculitis M54.12 Lumbar post-laminectomy syndrome M96.1 Assessment & Plan Assessment & Plan (1) Cervical radiculitis: Code(s): M54.12 - Radiculopathy, cervical region Category: Medical Plan: I discussed with the patient the need for further diagnostic imaging to clarify the extent of cervical and lumbar pathology. We reviewed the necessity of MRI to provide a comprehensive view of her spinal health and inform the surgical instrument maker. I explained the management strategy for her acute flare with medications, emphasizing judicious use of opioids. We reviewed the potential benefits and risks of a neurosurgical consult following MRI findings, focusing on the possibility of improving quality of life through possible intervention. I acknowledged her concerns regarding past ER experiences and validated her symptoms, articulating the aim to achieve better symptom control and prevent exacerbations (2) Lumbar post-laminectomy syndrome: Code(s): M96.1 - Postlaminectomy syndrome, not elsewhere classified Category: Medical Plan: As above. Patient also having lower extremity pain, neuropathic symptoms in some weakness. Orders: Orders MR lumbar spine wo con 05/08/24 M96.1 - Postlaminectomy syndrome, not elsewhere classified MR cervical spine wo con 05/08/24 M54.12 - Radiculopathy, cervical region Medications: Refilled oxycodone Partial Fill upon patient request. 5 mg PO Q8H PRN 15 tabs 0RF pain 5 days M54.16 - Radiculopathy, lumbar region
== END 2024-05-08 14:14 | disposition home or self-care (01) ==
PROVIDERS: PCP Physician Assistant; Visit Provider Physician Assistant
DX: M54.12 Radiculopathy, cervical region (principal); M96.1 Postlaminectomy syndrome, not elsewhere classified

== ENCOUNTER → 2024-05-08 13:23 | Outpatient (BNVA) | payer MEDICARE, MEDICAID, SELFPAY | PROVIDERS: PCP Physician Assistant; Visit Provider Physician Assistant | DX: M54.12 Radiculopathy, cervical region (principal); M54.30 Sciatica, unspecified side; M96.1 Postlaminectomy syndrome, not elsewhere classified | CPT/HCPCS: 99212 ==

== ENCOUNTER 2024-05-13 19:24 | Outpatient (REF) | payer MEDICARE, MEDICAID, SELFPAY | END 2024-05-13 19:25 | disposition home or self-care (01) | LOC: HO.MRI 19:24 | PROVIDERS: PCP Physician Assistant; Visit Provider Physician Assistant | DX: M96.1 Postlaminectomy syndrome, not elsewhere classified (principal); M54.12 Radiculopathy, cervical region | CPT/HCPCS: 72141; 72148 ==

== ENCOUNTER 2024-06-19 08:54 | Outpatient (AMB) | payer MEDICARE, MEDICAID, SELFPAY ==
--- NOTE | 2024-06-19 08:58 | A.SPINEOV_ITS ---
Vital Signs 06/19/24 09:03 Height 5 ft 6 in Weight 138 lb BMI 22.3 Intake Visit Reasons: neck pain Intake Note: Ms. Rodríguez is here today c/o neck, and back pain. Internetworking Technician Required: No Allergies No Known Allergies Allergy (Verified 06/19/24 09:02) Physical Exam Vital Signs: BMI result Body Mass Index 22.3 Assessment & Plan Assessment & Plan (1) Inflammatory arthritis: Code(s): M19.90 - Unspecified osteoarthritis, unspecified site Category: Medical (2) Lumbar degenerative disc disease: Code(s): M51.36 - Other intervertebral disc degeneration, lumbar region Category: Medical Plan Dear Cecil, Thank you for referring Mrs Rodríguez to our office today. She is a very nice PETTY positive female, history of previous L5-S1 microdiskectomy 1997, presents for evaluation of pain in her low back, thoracic spine and cervical spine. Patient also has intermittent episodes of bilateral lumbar radiculopathy and arm pain/numbness. The patient recently was in the emergency room about a month and a half ago with an acute flare-up. That responded very well to a dose of prednisone. Through the years the patient has had steadily increasing pain. She has attempted physical therapy twice in the last few years. She was connected with the [facility] spine and sport team, as well as the pain management Center here but has never had injections. She is afraid of needles. She takes Tylenol, meloxicam, methocarbamol and occasionally oxycodone. She comes today for evaluation with cervical and lumbar MRIs showing diffuse spondylosis. PMH: History of microdiskectomy done in 1997 for which she had excellent results. History of PETTY positive blood labs with what sounds like possibly some kind of arthritic condition, not formally diagnosed at her last office visit with Rheumatology but the patient complains of multiple diffuse polyarthralgia type aches and pains. These will generally respond to doses of prednisone. History of high cholesterol, depression, osteopenia, anxiety, tubal ligation, GERD. Social hx: Quit smoking many years ago, occasional alcohol, no recreational drugs Medications: Methocarbamol, naproxen, meloxicam, Protonix, sertraline, Tylenol, bupropion, atorvastatin Allergies: No drug allergies Physical exam: Patient is awake alert oriented no acute distress, she is able to stand up out of a chair however a little slowly, strength in upper and lower extremities is normal, normal reflexes, no clonus, no Rodas's sign. Imaging review: Cervical MRI done at [facility] shows diffuse spondylosis, there are disc bulges at multiple levels, none of which are severe but I would rate them as moderate. There are varying degrees of foraminal stenosis but nothing severe. No severe central canal stenosis or cord signal changes seen. Lumbar MRI shows very similar findings with [id number] spondylosis. Bone signal appears to be consistent with osteoporosis. No significant central canal stenosis or foraminal stenosis seen. Impression: 63-year-old female history of previous L5-S1 microdiskectomy in 1997 with good results, history of PETTY positive blood labs, suspected some type of inflammatory arthritis with polyarthralgia. Not formally diagnosed with any specific condition yet at this point. However, similarly with her other joint aches and pains, I think her lumbar, thoracic and cervical are all consistent with inflammatory origin rather than an actual structural defect. From a surgical standpoint, these patients are the hardest to evaluate because they generally have just diffuse moderate imaging findings with nothing focal that could lend itself well to an operation. Thats exactly what this patient is presenting with on her history and her mri. I encouraged her to follow-up with her psychiatric clinical nurse specialist, encourage her to participate in regular exercise and to consider following up with 1 of the physiatry or pain management centers that she has been connected to to consider injections. Unfortunately I do not think surgery would help her, in fact I think it would only cause her more pain and inflammation. Thank you for allowing us to care for your patient. The total time spent with this visit with this patient was 45 minutes reviewing history, physical exam, lumbar and cervical imaging review, and implementation of treatment plan or further diagnostic testing Cody Prado MD,PhD [facility] Coding Level of Care Code New Pt Level 4 (00625) Diagnoses Inflammatory arthritis M19.90 Lumbar degenerative disc disease M51.36
[2024-06-19 09:03] VITALS: BMI 22.3
--- OUTSIDE RECORDS SUMMARY | 2024-06-19 13:14 | XMS_ITS | Clinical Summary ---
Author Organization [facility] Address [address] [place] [address] Care Team Providers Care Psychological Science Professor Name Role Phone Unavailable Primary Care Provider Unavailabl e Allergies No known active allergies Medications Medication Sig Dispensed Refills Start Date End Date Status naproxen (NAPROSYN) 500 MG tablet Take 500 mg by mouth 2 (two) times a day with meals. Take with meals or food to reduce stomach upset. Active thiamine (VITAMIN B-1) 100 MG tablet Take 100 mg by mouth daily. Active melatonin 3 MG Tab tablet Take 3 mg by mouth nightly. Active Magnesium Oxide 250 MG Tab tablet Take 250 mg by mouth daily. Take 2 hours apart from other medications; take with food Active fluticasone (FloNASE) 50 mcg/spray nasal spray 1 spray into each nostril daily. Active cetirizine (ZyrTEC) 10 MG tablet Take 10 mg by mouth daily. Active carisoprodol (SOMA) 250 MG tabletIndications:N reyna pain Take 1 tablet (250 mg total) by mouth nightly as needed for muscle spasms. 10 tablet 12/01/2018 Active hydroquinone (ELDOQUIN FORTE 4) 4 % creamIndications:Ra sh Apply topically 2 (two) times a day. 28.35 g 3 12/15/2018 Active buPROPion (WELLBUTRIN XL) 150 MG 24 hr tabletIndications:R eactive depression Take 2 tablets (300 mg total) by mouth every morning. Swallow whole; do not crush, chew, or divide. 180 tablet 07/12/2019 Active sertraline (ZOLOFT) 100 MG tabletIndications:R eactive depression Take 1 tablet (100 mg total) by mouth daily. 90 tablet 07/20/2019 Active Active Problems Problem Noted Date Diagnosed Date Dysthymia 04/19/2018 Pure hypercholesterolemia 04/19/2018 Achilles tendinitis, left leg 04/19/2018 Immunizations Name Administration Dates Next Due Influenza Inactivated/Split Preservative Free IM 03/15/2018 Family History Medical History Relation Name Comments Lung cancer Father Lung cancer Mother Alcohol abuse Sister 1 Patricia Depression Sister 2 Tootie Relation Name Status Comments Father Mother Sister 1 Patricia Alive Sister 2 Tootie Alive Social History Tobacco Use Types Packs/Day Years Used Date Smoking Tobacco: Former Cigarettes Q uit: 02/1993 Smokeless Tobacco: Never Comments:quite 25 years ago Alcohol Use Standard Drinks/Week Comments Yes 0 (1 standard drink = 0.6 oz pur e alcohol) monthly socially AUDIT-C Answer Date Recorded Frequency of Alcohol Consumption Monthly or less 02/12/2018 Average Number of Drinks Not on file 018 Frequency of Binge Drinking Not on file 01/23 Sex and Gender Information Value Date Recorded Sex Assigned at Not on file Gender Identity Not on file Sexual Orientation Not on file Last Filed Vital Signs Vital Sign Reading Time Taken Comments Blood Pressure 106/65 02/09/2019 2:57 PM EDT Pulse 62 02/09/2019 2:57 PM EDT Temperature 36.7 ??C (98 ??F) 01/31/2019 9:52 AM EDT Respiratory Rate 16 02/09/2019 2:57 PM EDT Oxygen Saturation 92% 02/12/2018 1:49 PM EDT Inhaled Oxygen Concentration - - Weight 66.2 kg (146 lb) 02/09/2019 2:57 PM EDT Height 167.6 cm (5' 6 ) 02/09/2019 2:57 PM EDT Body Mass Index 23.57 02/09/2019 2:57 PM EDT Plan of Treatment Health Maintenance Due Date Last Done Comments HIV Screening 11/26[birth year]1971 DTaP/Tdap/Td Vaccines (1 - Tdap) 1977 Colonoscopy 2008 Pneumococcal Vaccines 50+ (1 of 1 - PCV) 2008 Zoster (Shingles) Vaccine (1 of 2) 2008 Mammogram 09/30/2019 09/29/2018, 08/23 (Previously Completed), 09/15/2018, Additional history exists Pap Smear (Ages 21-65) 04/19/2021 04/19/2018 DXA Bone Density (Females,Ages 65 and older) 11/26/2023 Influenza Vaccine 12/23/2023 03/15/2018 COVID-19 Vaccine (2023- season) 2024 RSV Vaccine 60 years and older and Patients (1 - 1-dose 75+ series) 2033 Hepatitis C Virus Screening Completed 03/24/2018 Hepatitis B Vaccines Aged Out No long er eligible based on patient's age to complete this topic Procedures Procedure Name Priority Date/Time Associated Diagnosis Comments IMAGING BREAST/BX/MAMMO 09/29/2018 THINPREP PAP TEST (SOCIAL SCIENCES PROFESSOR) WITH HPV REFLEX Routine 04/19/2018 11:44 AM EST Pap smear for cervical cancer screening HEPATITIS C VIRUS (HCV) ANTIBODY Routine 03/24/2018 7:42 AM EDT Reactive depression Breast cancer screening Need for hepatitis C screening test from Last 3 Months or Most Recently Relevant to Health Maintenance Results * IMAGING BREAST/BX/MAMMO (09/29/2018) Anatomical Region Laterality Modality Other Narrative 09/29/2018 Ordered by an unspecified provider. Generic Provider IMG LEGACY PROCEDURE S * ThinPrep Pap Test (Photo Mask Processor) with HPV Reflex (04/19/2018 11:44 AM EST) Clinical Information None given [facility] LMP: NONE GIVEN [facility] Previous PAP: NONE GIVEN [facility] Previous Biopsy NONE GIVEN [facility] Source: Cervix [facility] Statement of Adequacy: [facility] Comment:SATISFACTORY FOR YULIANA LUATION Interpretation/Resu lt: [facility] Comment: Negative for intraepithelial lesion or malignancy. Atrophic pattern; predominantly parabasal cells Comment: [facility] Comment: This Pap test has been evaluated with computer assisted technology. Technical Product Manager: [facility] Comment: DMM, CT(ASCP) CT screening location: [address] ??[address] Review Technical Product Manager: [facility] Comment: GSG, CT(ASCP) CT screening location: [facility] [address] ??[address] Comment [facility] Comment: EXPLANATORY NOTE: The Pap is a screening test for cervical cancer. It is not a diagnostic test and is subject to false negative and false positive results. It is most reliable when a satisfactory sample, regularly obtained, is submitted with relevant clinical findings and history, and when the Pap result is evaluated along with historic and current clinical information. 04/19/2018 11:4 4 AM EST 04/19/2018 9:45 PM EST Narrative Resulting Agency Comment Performing Organization Information: ?Site ID: [id number] ?Name: [facility] ?Address: [address] [place] [phone] ?Director: Israel Mckeon MD Carla Vang MD PATHOLOGY/CYTOLOGY O RDERABLES Performing Organization Address [facility] de Phone Number [facility] [address] [place] [address] [phone] * Hepatitis C Virus (HCV) Antibody (03/24/2018 7:42 AM EDT) Hepatitis C Antibody NON-REACTI VE NON-REACT NADYA [facility] Hepatitis C Antibody (s/co) 0.01 <1.00 [facility] Blood specimen (specimen) Blood specimen / Unknown 03/24/2018 7:42 AM EDT 03/24/2018 7:42 AM EDT Narrative [facility] - 03/25/2018 12:30 AM EDT FASTING:YES FASTING: YES Resulting Agency Comment Performing Organization Information: ?Site ID: [id number] ?Name: [facility] ?Address: [address] [place] [phone] ?Director: Irsael Mckeon MD Carla Vang MD LAB BLOOD ORDERABLES Performing Organization Address [facility] de Phone Number [facility] [address] [place] [address] [place] [address] from Last 3 Months or Most Recently Relevant to Health Maintenance
--- OUTSIDE RECORDS SUMMARY | 2024-06-19 13:14 | XMS_ITS | Encounter Summary ---
Author Organization [facility] Address [address] [place] [address] Care Team Providers Care Pourer Crane Ladle Name Role Phone Carla Vang MD Primary Care Provider + [phone] Reason for Visit * Reason Comments Medication Refill Encounter Details Date Type Department Care Team (Late st Contact Info) Description 07/08/[address] [phone] Carla Vang MD [address] [place] [address] Reactive depression Social History Tobacco Use Types Packs/Day Years [...] on file Sexual Orientation Not on file documented as of this encounter Plan of Treatment Not on file documented as of this encounter Visit Diagnoses Diagnosis Reactive depression documented in this encounter Care Teams Pourer Crane Ladle Relationship Specialty Start Date End Date Carla Vang MD [address] [place] [address] PCP - General Internal Medicine 03/15/18 12/24/20 documented as of this encounter
--- OUTSIDE RECORDS SUMMARY | 2024-06-19 13:14 | XMS_ITS | Encounter Summary ---
Author Organization [facility] Address [address] [place] [address] Care Team Providers Care Plastic Sheeting Cutter Name Role Phone Carla Vang MD Primary Care Provider + [phone] Ariana Harrell FLAME ANNEALING MACHINE SETTER Unavailable [phone] Encounter Details Date Type Department Care Team (Late st Contact Info) Description 12/23/2018 Scanned Document [address] [phone] Ariana Harrell, FLAME ANNEALING MACHINE SETTER [address] [place] [address] Social History Tobacco Use Types Packs/Day Years [...] documented as of this encounter Visit Diagnoses Not on filedocumented in this encounter Care Teams Plastic Sheeting Cutter Relationship Specialty Start Date End Date Carla Vang MD [address] [place] [address] PCP - General Internal Medicine 03/15/18 12/24/20 Ariana Harrell, FLAME ANNEALING MACHINE SETTER [address] [place] [address] Guard Driver Clinical Social Work 12/27/18 03/06/19 documented as of this encounter
--- OUTSIDE RECORDS SUMMARY | 2024-06-19 13:14 | XMS_ITS | Encounter Summary ---
Author Organization [facility] Address [address] [place] [address] Care Team Providers Care Transfer Station Operator Name Role Phone Carla Vang MD Primary Care Provider + [phone] Ariana HarrellW Unavailable [phone] Encounter Details Date Type Department Care Team (Late st Contact Info) Description 09/01/2018 Scanned Document [address] [place] [phone] Provider, Generic Social History Tobacco Use Types Packs/Day Years [...] on file documented as of this encounter Procedures Procedure Name Priority Date/Time Associated Diagnosis Comments IMAGING BREAST/BX/MAMMO 09/29/2018 IMAGING BREAST/BX/MAMMO 09/15/2018 IMAGING BREAST/BX/MAMMO 09/15/2018 IMAGING BREAST/BX/MAMMO 09/01/2018 IMAGING BREAST/BX/MAMMO 09/01/2018 documented in this encounter Results * IMAGING BREAST/BX/MAMMO (09/29/2018) Anatomical Region Laterality Modality Other Narrative 09/29/2018 Ordered by an unspecified provider. Generic Provider IMG LEGACY PROCEDURE S * IMAGING BREAST/BX/MAMMO (09/15/2018) Anatomical Region Laterality Modality Other Narrative 09/15/2018 Ordered by an unspecified provider. Generic Provider IMG LEGACY PROCEDURE S * IMAGING BREAST/BX/MAMMO (09/15/2018) Anatomical Region Laterality Modality Other Narrative 09/15/2018 Ordered by an unspecified provider. Generic Provider IMG LEGACY PROCEDURE S * IMAGING BREAST/BX/MAMMO (09/01/2018) Anatomical Region Laterality Modality Other Narrative 09/01/2018 Ordered by an unspecified provider. Generic Provider IMG LEGACY PROCEDURE S * IMAGING BREAST/BX/MAMMO (09/01/2018) Anatomical Region Laterality Modality Other Narrative 09/01/2018 Ordered by an unspecified provider. Generic Provider IMG LEGACY PROCEDURE S documented in this encounter Visit Diagnoses Not on filedocumented in this encounter Care Teams Transfer Station Operator Relationship Specialty Start Date End Date Carla Vang MD [address] [place] [address] PCP - General Internal Medicine 03/15/18 12/24/20 Ariana Harrell LCSW [address] [place] [address] Claims Specialist Clinical Social Work 12/27/18 03/06/19 documented as of this encounter
--- OUTSIDE RECORDS SUMMARY | 2024-06-19 13:14 | XMS_ITS | Data Portability ---
Author Organization [facility], TERM[facility] Address [address] [place] [address] oscar MD LUNA [address] Assessment No assessment recorded. Plan of Treatment Reminders Order Date Submit Date Provider Last Modified By Organization Details Last Modified Time Details Appointments None recorded. Lab None recorded. Referral None recorded. Procedures None recorded. Surgeries None recorded. Imaging None recorded. Medication Orders azithromyc in 250 mg tablet 2017 018 [id number] [address] [place], [place], [id number], 8 18:48:10 Tessalon Perles 100 mg capsule 2017 018 [facility]FACE [facility] [employer] [id number], [address], [place], [id number], 8 18:48:09 Patient TargetsNo targets recorded. Patient InstructionsNo instructions recorded. Reason for Referral None Reported. Medical Equipment None Reported. Allergies No known drug allergies Medications Name Sig Start Date Stop Date Status Note LastModified by Organization Details LastModified Time azithromycin 250 mg tablet TAKE 2 TABLETS (500 MG) BY ORAL ROUTE ONCE DAILY FOR 1 DAY THEN 1 TABLET (250 MG) BY ORAL ROUTE ONCE DAILY FOR 4 DAYS active Not Available Not Available No t Available clonazepam 0.5 mg tablet 07/16 completed Not Available Not Available Not Available benzonatate 100 mg capsule TK ONE C PO TID PRN. active Not Available Not Available No t Available sertraline 25 mg tablet 07/16 completed Not Available Not Available Not Available Zoloft 100 mg tablet Take 2 tablets every day by oral route. active Not Available Not Available No t Available sertraline 50 mg tablet 07/16 completed Not Available Not Available Not Available Vitals Date Recorded Body weight Heart rate Oxygen saturation Oxygen saturation in Arterial blood by Pulse oximetry Body temperature Systolic blood pressure Diastolic blood pressure Provider Name and Address Organization Details Last Updated DateTime 8 [address].7 8 g 94 /min 97 % 97 % 98.2 [degF] 112 mm[Hg] 82 mm[Hg] Holden Read [facility] 8 18:21:32 Social History Question Answer Notes LastModified by Organizat ion Details LastModified Time Tobacco Smoking Status Never Smoker Holden Read null, [facility] 07/16/2017 18:20:27 What Was The Date Of Your Most Recent Tobacco Screening? 07/16/2017 Information n ot available 12/17/2018 Sex: Unknown Functional Status None recorded. Mental Status None recorded. Family History Relationship Description Onset Age of this Age Resolved Age Notes LastModified by Organization Details LastModified Time Father No current problems or disability [email or web address] Not available 06/25 18:20:30 Mother No current problems or disability [email or web address] Not available 06/25 18:20:30 Medical History No medical history recorded. Gynecological HistoryNo gynecological history recorded. Obstetrics History GPAL:G 0 P 0 0 0 0 Past Encounters Encounter ID Performer Location Encounter Start Date Encounter Closed Date Diagnosis/Indication Diagnosis SNOMED-CT Code Diagnosis ICD10 Code Diagnosis Note [id number] ELIZABETH Danielson TERM_PMG_ [facility] [address] [facility],[address] [place] [address] 07/16/2017 18:02:10 07/16/2017 18:57:07 Community acquired pneumonia 487527622 J18.9 -Rest, to prevent dehydratio n, drink plenty of fluids, take medication s as prescribed -RTO in 7 days for a f/u ir sooner if fever over 102, cough is getting worse, SOB, chest wall pain or fever over 102 F Health Concerns Section Related Observation LastModified by Organization Detai ls LastModified Time None Recorded Concern Status LastModified by Organization Details LastModified Time None Recorded Advance Directives Directive None Recorded Payers Encounter Date Sequence Insurance Name Policy Number Policy Bautista Covered Member ID Bautista Member ID Guarantor Name 07/16/2017 1 *SELF PAY* Alexander Rodríguez Notes Date Note Type Note Provider Name and Address Organization Details Recorded Time 07/16/2017 text/html Pt presents with cough all day x 5 days, cough is not productive, aches, chest wall hurts when coughing. Wednesday felt better, then it got worse. Chills and sweats. Feels very tired, has been sleeping a lot. No fever, SOB, wheezing. ELIZABETH Danielson [address], [place], [address], [facility] 07/16/2017 18:52:35 OBGyn Episode No OBEpisode recorded.
--- OUTSIDE RECORDS SUMMARY | 2024-06-19 13:14 | XMS_ITS | Encounter Summary ---
Author Organization [facility] Address [address] [place] [address] Care Team Providers Care Manager Front Name Role Phone Carla Vang MD Primary Care Provider [phone] Ariana Harrell TODDLER CAREGIVER Unavailable [phone] Encounter Details Date Type Department Care Team (Late st Contact Info) Description 02/01/2019 Scanned Document [address] [phone] Carla Vang MD [address] [place], [place] [phone] Social History Tobacco Use Types Packs/Day Years [...] on filedocumented in this encounter Care Teams Manager Front Relationship Specialty Start Date End Date Carla Vang MD [address] [place] [address] PCP - General Internal Medicine 03/15/18 12/24/20 Airana Harrell, TODDLER CAREGIVER [address] [place] [address] Dressing Room Porter Clinical Social Work 12/27/18 03/06/19 documented as of this encounter
--- OUTSIDE RECORDS SUMMARY | 2024-06-19 13:14 | XMS_ITS | Encounter Summary ---
Author Organization [facility] Address [address] [place] [address] Care Team Providers Care Risk Officer Name Role Phone Carla Vang MD Primary Care Provider + [phone] Ariana Harrell LCSW Unavailable [phone] Encounter Details Date Type Department Care Team (Late st Contact Info) Description 03/15/2018 Scanned Document [address] [phone] Provider, Generic Social History Tobacco Use Types [...] on filedocumented in this encounter Care Teams Risk Officer Relationship Specialty [place] [address] [place] [address] PCP - General Internal Medicine 03/15/18 12/24/20 Ariana Harrell LCSW [address] [place] [address] Laborer Pipelines Clinical Social Work 12/27/18 03/06/19 documented as of this encounter
--- OUTSIDE RECORDS SUMMARY | 2024-06-19 13:14 | XMS_ITS | Encounter Summary ---
Author Organization [facility] Address [address] [place] [address] Care Team Providers Care Youth Pastor Name Role Phone Carla Vang MD Primary Care Provider + [phone] Reason for Visit * Reason Comments Medication Refill Encounter Details Date Type Department Care Team (Late st Contact Info) Description 04/09/[address] [phone] Carla Vagn MD [address] [place] [phone] Reactive depression Social History Tobacco Use Types [...] depression documented in this encounter Care Teams Youth Pastor Relationship Specialty Start Date End Date Carla Vang MD [address] [place] [address] PCP - General Internal Medicine 03/15/18 12/24/20 documented as of this encounter
--- OUTSIDE RECORDS SUMMARY | 2024-06-19 13:14 | XMS_ITS | Clinical Summary ---
Author Organization [facility] Address [address] [place] [address] Care Team Providers Care Signal Engineer Name Role Phone Unavailable Primary Care Provider Unavailabl e Source Comments PLEASE NOTE, if this patient is a minor, it may be UNLAWFUL to discuss sensitive information that is contained in these records (such as FAMILY PLANNING, MENTAL HEALTH or SUBSTANCE ABUSE) with the minor patient's parent or other person without the patient's specific authorization.[facility] Social History Tobacco Use Types Packs/Day Years Used Date Smoking Tobacco: Never Assessed Social Connections Answer Date Recorded Social Connections and Isolation 0 10/04/2020 Financial Resource Strain Answer Date R ecorded Financial Resource Strain 0 2020 Stress Answer Date Recorded Stress 0 10/04/2020 Physical Activity Answer Date Recorded Physical Activity 0 10/04/2020 Food Insecurity Answer Date Recorded Food 0 10/04/2020 Transportation Needs Answer Date Record ed Transportation 0 10/04/2020 Housing Stability Answer Date Recorded Housing 0 10/04/2020 Safety and Environment Answer Date [place] r[place] Safety 0 10/04/2020 Utilities Answer Date Recorded Utilities 0 10/04/2020 Employment Answer Date Recorded Employment 0 10/04/2020 Comments Unknown Sex and Gender Information Value Date Recorded Sex Assigned at Not on file Legal Sex Female 8:24 AM PDT Gender Identity Not on file Sexual Orientation Not on file Plan of Treatment Not on file Insurance [place] DENTAL
--- OUTSIDE RECORDS SUMMARY | 2024-06-19 13:14 | XMS_ITS | Encounter Summary ---
Author Organization [facility] Address [address] [place] [address] Care Team Providers Care Trashman Name Role Phone Carla Vang MD Primary Care Provider [phone] Ariana Harrell TRUCK DRIVER SALESPERSON Unavailable [phone] Encounter Details Date Type Department Care Team (Late st Contact Info) Description 03/23/2018 Scanned Document [address] [phone] Carla Vang MD [address] [place], [place] [phone] Social History Tobacco Use Types Packs/Day Years [...] on filedocumented in this encounter Care Teams Trashman Relationship Specialty Start Date End Date Carla Vang MD [address] [place] [address] PCP - General Internal Medicine 03/15/18 12/24/20 Ariana Harrell, TRUCK DRIVER SALESPERSON [address] [place] [address] Spout Liner Helper Clinical Social Work 12/27/18 03/06/19 documented as of this encounter
== END 2024-06-19 09:24 | disposition home or self-care (01) ==
PROVIDERS: PCP Physician Assistant; Referring Provider Physician Assistant; Visit Provider Physician Assistant
DX: M19.90 Unspecified osteoarthritis, unspecified site (principal); M51.369 Other intervertebral disc degeneration, lumbar region without mention of lumbar back pain or lower extremity pain
CPT/HCPCS: 99204

== ENCOUNTER → 2024-06-19 08:54 | Outpatient (BNVA) | payer MEDICARE, MEDICAID, SELFPAY | PROVIDERS: PCP Physician Assistant; Referring Provider Physician Assistant; Visit Provider Physician Assistant | DX: M54.2 Cervicalgia (principal); M19.90 Unspecified osteoarthritis, unspecified site; M51.369 Other intervertebral disc degeneration, lumbar region without mention of lumbar back pain or lower extremity pain | CPT/HCPCS: 99202 ==

== ENCOUNTER 2024-07-07 12:39 | Outpatient (REF) | payer MEDICARE, MEDICAID, SELFPAY ==
[2024-07-07 12:59] LABS: MANUAL DIFF FLAG NO
--- OUTSIDE RECORDS SUMMARY | 2024-07-07 13:02 | XMS_ITS | Encounter Summary ---
Author Organization [facility] Address [address] [place] [address] Care Team Providers Care Sql Database Developer Name Role Phone Carla Vang MD Primary Care Provider + [phone] Reason for Visit * Reason Comments Medication Refill Encounter Details Date Type Department Care Team (Late st Contact Info) Description 04/09/[address] [phone] Carla Vang MD [address] [place] [phone] Reactive depression Social History Tobacco Use Types [...] depression documented in this encounter Care Teams Sql Database Developer Relationship Specialty Start Date End Date Carla Vang MD [address] [place] [address] PCP - General Internal Medicine 03/15/18 12/24/20 documented as of this encounter
--- OUTSIDE RECORDS SUMMARY | 2024-07-07 13:02 | XMS_ITS | Encounter Summary ---
Author Organization [facility] Address [address] [place] [address] Care Team Providers Care Tube Bending Machine Operator Name Role Phone Carla Vang MD Primary Care Provider [phone] Ariana Harrell INFORMATION TECHNOLOGY ADMINISTRATOR Unavailable [phone] Encounter Details Date Type Department Care Team (Late st Contact Info) Description 03/23/2018 Scanned Document [address] [phone] Carla Vang MD [address] [place], [place] [phone] Social History Tobacco Use Types Packs/Day Years [...] on filedocumented in this encounter Care Teams Tube Bending Machine Operator Relationship Specialty Start Date End Date Carla Vang MD [address] [place] [address] PCP - General Internal Medicine 03/15/18 12/24/20 Ariana Harrell, INFORMATION TECHNOLOGY ADMINISTRATOR [address] [place] [address] Chemical Etching Processor Clinical Social Work 12/27/18 03/06/19 documented as of this encounter
--- OUTSIDE RECORDS SUMMARY | 2024-07-07 13:02 | XMS_ITS | Encounter Summary ---
Author Organization [facility] Address [address] [place] [address] Care Team Providers Care Bridge Worker Apprentice Name Role Phone Carla Vang MD Primary Care Provider + [phone] Reason for Visit * Reason Comments Medication Refill Encounter Details Date Type Department Care Team (Late st Contact Info) Description 07/08/[address] [phone] Carla Vang MD [address] [place] [address] Reactive depression Social History Tobacco Use Types [...] depression documented in this encounter Care Teams Bridge Worker Apprentice Relationship Specialty Start Date End Date Carla Vang MD [address] [place] [address] PCP - General Internal Medicine 03/15/18 12/24/20 documented as of this encounter
--- OUTSIDE RECORDS SUMMARY | 2024-07-07 13:02 | XMS_ITS | Encounter Summary ---
Author Organization [facility] Address [address] [place] [address] Care Team Providers Care Vice Provost Name Role Phone Carla Vang MD Primary Care Provider + [phone] Ariana HarrellW Unavailable [phone] Encounter Details Date Type Department Care Team (Late st Contact Info) Description 09/01/2018 Scanned Document [address] [place] [phone] Provider, Generic Social History Tobacco Use [...] on filedocumented in this encounter Care Teams Vice Provost Relationship Specialty Start Date End Date Carla Vang MD [address] [place] [address] PCP - General Internal Medicine 03/15/18 12/24/20 Ariana Harrell LCSW [address] [place] [address] Final Inspector And Tester Clinical Social Work 12/27/18 03/06/19 documented as of this encounter
--- OUTSIDE RECORDS SUMMARY | 2024-07-07 13:02 | XMS_ITS | Clinical Summary ---
Author Organization [facility] Address [address] [place] [address] Care Team Providers Care Quality Tester Name Role Phone Unavailable Primary Care Provider [...] Comments IMAGING BREAST/BX/MAMMO 09/29/2018 THINPREP PAP TEST (GENERAL PRODUCTION WORKER) WITH HPV REFLEX Routine 04/19/2018 11:44 AM [...] LEGACY PROCEDURE S * ThinPrep Pap Test (Muck Boss) with HPV Reflex (04/19/2018 11:44 AM EST) [...] has been evaluated with computer assisted technology. Sedimentationist: [facility] Comment: DMM, CT(ASCP) CT screening location: [address] ??[address] Review Sedimentationist: [facility] Comment: [place], [place](ASCP) CT screening location: [facility] [address] ??[address] Comment [facility] Comment: EXPLANATORY NOTE: The Pap [...] Performing Organization Information: ?Site ID: [id number] ?Name: [facility] ?Address: [address] [place] [phone] ?Director: Israel Mckeon MD Carla Vang MD PATHOLOGY/CYTOLOGY O RDERABLES Performing Organization Address [facility] de Phone Number [facility] [address] [place] [phone] * Hepatitis C Virus (HCV) Antibody (03/24/2018 7:42 AM EDT) Hepatitis C Antibody NON-REACTI VE NON-REACT NADYA [facility] Hepatitis C Antibody (s/co) 0.01 <1.00 [facility] Blood specimen (specimen) Blood specimen / Unknown 03/24/2018 7:42 AM EDT 03/24/2018 7:42 AM EDT Narrative [facility] - 03/25/2018 12:30 AM EDT FASTING:YES FASTING: YES Resulting Agency Comment Performing Organization Information: ?Site ID: [id number] ?Name: [facility] ?Address: [address] [place] [phone] ?Director: Israel Mckeon MD Carla Vang MD LAB BLOOD ORDERABLES Performing Organization Address [facility] de Phone Number [facility] [address] [place] [address] [place] [address] from Last 3 Months or Most Recently Relevant to Health Maintenance
--- OUTSIDE RECORDS SUMMARY | 2024-07-07 13:02 | XMS_ITS | Encounter Summary ---
Author Organization [facility] Address [address] [place] [address] Care Team Providers Care Jowl Trimmer Name Role Phone Carla Vang MD Primary Care Provider + [phone] Ariana Harrell LCSW Unavailable [phone] Encounter Details Date Type Department Care Team (Late st Contact Info) Description 03/15/2018 Scanned Document [address] [phone] Provider, Generic Social History Tobacco Use Types [...] on filedocumented in this encounter Care Teams Jowl Trimmer Relationship Specialty [place] [address] [place] [address] PCP - General Internal Medicine 03/15/18 12/24/20 Ariana Harrell LCSW [address] [place] [address] Semiconductor Processing Group Leader Clinical Social Work 12/27/18 03/06/19 documented as of this encounter
--- OUTSIDE RECORDS SUMMARY | 2024-07-07 13:02 | XMS_ITS | Encounter Summary ---
Author Organization [facility] Address [address] [place] [address] Care Team Providers Care Transonic Engineer Name Role Phone Carla Vang MD Primary Care Provider + [phone] Ariana Harrell DOUGH SHEETER Unavailable [phone] Encounter Details Date Type Department Care Team (Late st Contact Info) Description 12/23/2018 Scanned Document [address] [phone] Ariana Harrell, DOUGH SHEETER [address] [place] [address] Social History Tobacco Use Types Packs/Day Years [...] on filedocumented in this encounter Care Teams Transonic Engineer Relationship Specialty Start Date End Date Carla Vang MD [address] [place] [address] PCP - General Internal Medicine 03/15/18 12/24/20 Ariana Harrell, DOUGH SHEETER [address] [place] [address] Travel Specialist Clinical Social Work 12/27/18 03/06/19 documented as of this encounter
--- OUTSIDE RECORDS SUMMARY | 2024-07-07 13:02 | XMS_ITS | Clinical Summary ---
Author Organization [facility] Address [address] [place] [address] Care Team Providers Care Break Off Worker Name Role Phone Unavailable Primary Care Provider [...] Plan of Treatment Not on file Insurance [place] D[place] SAF[place]Y NET DENTAL
--- OUTSIDE RECORDS SUMMARY | 2024-07-07 13:02 | XMS_ITS | Encounter Summary ---
Author Organization [facility] Address [address] [place] [address] Care Team Providers Care Conveyor Weigher Operator Name Role Phone Carla Vang MD Primary Care Provider [phone] Ariana Harrell HANDBAG FRAMES INSPECTOR Unavailable [phone] Encounter Details Date Type Department Care Team (Late st Contact Info) Description 02/01/2019 Scanned Document [address] [phone] Carla Vang MD [address] [place], [place] [phone] Social History Tobacco Use Types Packs/Day Years [...] on filedocumented in this encounter Care Teams Conveyor Weigher Operator Relationship Specialty Start Date End Date Carla Vang MD [address] [place] [address] PCP - General Internal Medicine 03/15/18 12/24/20 Ariana Harrell, HANDBAG FRAMES INSPECTOR [address] [place] [address] Aviation Electronic Warfare Operator Clinical Social Work 12/27/18 03/06/19 documented as of this encounter
[2024-07-07 13:56] LABS: Basophils Percent Auto 0.8 % (0-2); Eosinophils Absolute Auto 0.1 X10*3/uL (0.0-0.4); Eosinophils Percent Auto 1.7 % (0-4); Hematocrit 36.4 % (37.0-47.0); Hemoglobin 12.4 g/dl (12.0-16.0); Imm Gran Abs Auto 0.01 X10*3/uL (0.00-0.03); Imm Gran Pct Auto 0.3 % (0.0-0.4); Lymphocytes Absolute Auto 1.3 X10*3/uL (1.2-4.9); Lymphocytes Percent Auto 34.7 % (20-40); Mean Corpuscular HGB Conc 34.1 g/dl (31.0-35.0); Mean Corpuscular Hemoglobin 31.6 pg (27.0-33.0); Mean Corpuscular Volume 92.9 fL (80.0-98.0); Mean Platelet Volume 8.9 fL (9.4-12.3); Monocytes Absolute Auto 0.4 X10*3/uL (0.1-1.2); Neutrophils Absolute Auto 1.9 x10*3/uL (2.0-8.3); Neutrophils Percent Auto 52.5 % (45-73); Platelet Count 277 X10*3/uL (160-400); Red Blood Count 3.92 X10*6/uL (4.20-5.50); Red Cell Distribution Width 12.7 % (11.0-16.0); White Blood Count 3.6 X10*3/uL (4.8-10.8)
[2024-07-07 14:11] LABS: Appearance Urine Clear; Color Urine Yellow; Glucose Urine UA 100 mg/dL (Negative); Leukocyte Esterase Urine Negative (Negative); Nitrite Urine Negative (Negative); PH 7.5 (5.0-9.0); Urine Blood Negative (Negative); Urine Ketones Negative (Negative); Urine Protein Negative (Neg-Trace)
[2024-07-07 14:14] LABS: Bacteria Urine None Seen (None Seen); Hyaline Casts Urine 0-2 /LPF (0-2); RBC Urine 0-2 /HPF (0-2); Squamous Epithelial Cell Urine 0-2 /HPF (0-2); WBC Urine 0-5 /HPF (0-5)
[2024-07-07 14:37] LABS: Erythrocyte Sedimentation Rate 19 MM/HR (0-20)
[2024-07-07 14:58] LABS: Creatinine Urine 73.88 mg/dL; Protein/Creatinine Ratio, Ur 0.11 (<0.2); Total Protein Urine Random 8 mg/dL (<12)
[2024-07-07 15:00] LABS: Alanine Aminotransferase 39 U/L (0-31); Albumin Level 4.4 g/dL (3.5-5.0); Alkaline Phosphatase 67 U/L (39-117); Anion Gap 12 (12-20); Aspartate Amino Transferase 29 U/L (5-31); Bilirubin Total 0.7 mg/dL (0.0-1.0); Blood Urea Nitrogen 10 mg/dL (9-16); C Reactive Protein < 0.04 mg/dL (< or = 0.50); Calcium 9.3 mg/dL (8.4-10.2); Carbon Dioxide 27 mmol/L (22-29); Chloride 104 mmol/L (96-108); Estimated Glomerular Filt Rate > 60; Glucose Random 97 mg/dL (60-115); Potassium 4.6 mmol/L (3.3-5.1); Sodium 138 mmol/L (135-145); Total Protein 7.7 g/dL (6.5-8.0)
[2024-07-10 20:23] LABS: Complement C3 118 mg/dL (83-193)
[2024-07-11 22:24] LABS: Anti DNA DS Antibody 1 IU/mL
== END 2024-07-07 12:40 | disposition home or self-care (01) ==
LOC: HO.LAB 12:39
PROVIDERS: PCP Physician Assistant; Visit Provider Student in an Organized Health Care Education/Training Program
DX: M32.9 Systemic lupus erythematosus, unspecified (principal)
CPT/HCPCS: 36415; 80053; 81001; 82570; 84156; 85025; 85652; 86140; 86160; 86225

== ENCOUNTER 2024-07-12 13:59 | Outpatient (AMB) | payer MEDICARE, MEDICAID, SELFPAY ==
--- NOTE | 2024-07-12 14:04 | A.OFFVIS_ITS ---
Vital Signs 07/12/24 14:10 Height 5 ft 6 in Weight 142 lb 6.698 oz BMI 23.0 BP 115/62 Blood Pressure Location Lt brachial Position Sitting Pulse 80 Pulse Source Pulse Oximeter Pulse Oximetry (%) 98 Oxygen Delivery Method Room Air Intake Visit Reasons: PETTY +ve Intake Note: Patient presents for PETTY +ve. Allergies No Known Allergies Allergy (Verified 07/12/24 14:07) Medication List - Last Reconciled 07/12/24 by Janelle Shrestha MD acetaminophen ER (Tylenol 8 Hour) 650 mg PO Q12H 30 days atorvastatin 10 mg PO DAILY bupropion HCl SR 200 mg PO QAM dextroamphetamine-amphetamine 10 mg (Adderall) 10 mg PO BID lorazepam 1 mg PO BID meloxicam 15 mg PO DAILY 90 days methocarbamol 750 mg PO Q8H PRN 10 days pantoprazole (Protonix) 20 mg PO DAILY 90 days sertraline 50 mg PO DAILY tramadol 50 mg PO BID PRN 14 days tretinoin 0.05% appl topical HPI Comments Details: Patient is a 63-year-old female with hyperlipidemia, cervical disc disease with myelopathy, lumbar degenerative disc disease status post laminectomy complicated by post laminectomy syndrome, major depressive disorder/anxiety who is here today for follow up of fibromyalgia in the setting of positive PETTY Interval History: Patient last seen 12/14/[address] Agosto. At that time she did not meet criteria for any autoimmune rheumatic disease. She was advised to keep a log of her symptoms and take pictures and to follow up with blood work in 6 months. Since that visit, Today, Complains of neck and back pain associated with bilateral lower extremity sciatica Also complains of whole body muscle aches Denies prolonged AM stiffness, feels stiff all day and does not improve with movement No swelling noted to any of the joints Rheumatologic History: Initial history: This is 62-year-old female who presents for evaluation for possible nflammatory arthritis given her multiple joint pain and highly positive PETTY. Her PCP referred her for a positive PETTY 1:640. Patient states that over the last 4 years she has been having diffuse joint pain especially in her neck, all over her back, and also intermittent pain swelling and stiffness of her hands. She has generalized morning stiffness that lasts 2-3 hours. She showed me a picture of swelling of her left ulnar styloid, this was treated with prednisone by her PCP. She was evaluated by Dr. Torres in 2021 and further labs were ordered in the context of a positive PETTY but patient did not follow-up as the dairy husbandry teacher was leaving the practice. Patient states that whenever her wrist and hands hurt, she took Tylenol, meloxicam and ibuprofen 800 mg daily all with minimal relief. Tylenol was most helpful. She denies any skin rashes, dry eyes, dry mouth, photosensitivity, difficulty swallowing, and hair loss. She had a colonoscopy in the past which showed polyps and diverticulosis. She denies any history of DVT/ PE, pluritis and pericarditis, fevers and headaches. She denies unexplained weight loss. --Denies uveitis. She has a sister with Raynaud's, another sister with ulcerative colitis. Father had plaque psoriasis. Three of her sisters have thyroid disease. --she describes a hx recurring oral ulcers - none on PE Current Rheumatology Medication(s): [facility] Medical History Osteopenia after menopause Colon adenomas Cervical spondylitis Pharyngoesophageal dysphagia DONNIE (generalized anxiety disorder) Leukopenia Depression Menopause Lumbar radiculopathy Hyperlipidemia Fibromyalgia Anxiety Surgical History History of colonoscopy History of back surgery History of tubal ligation Family History Father Lung cancer Plaque psoriasis Mother Lung cancer Paternal Uncle Colon cancer Sister Raynaud's disease Social History Household Members Other:: lives with adult daughter Housing: House Alcohol intake: current Alcohol intake frequency: holidays/special occasions only Patient Tobacco Use Status: Former Tobacco user e-Cigarette/Vaping Use: Never Used Second Hand Smoke Exposure: No service: No Current occupational status: employed 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 Cognitive needs: No Hearing needs: No Vision needs: No Review of Systems Const Details: Review of Systems Constitutional: Denies fever, chills, weight loss ENT: Denies vision changes, eye pain or eye redness, dental caries, dry mouth GI: Denies nausea, vomiting, diarrhea, abdominal pain, change in BM Pulm: Denies SOB, ROWE, hemoptysis, wheezing Cards: Denies chest pain, palpitations Skin: Denies Raynaud's, rash, nail changes, photosensitivity, PART TIME FLEXIBLE CLERK: Denies headaches, weakness, paresthesias, recurrent falls MSK: as per HPI All other systems reviewed and are unremarkable except noted above Physical Exam Vital signs reviewed Physical Examination CONSTITUITIONAL Patient alert and cooperative. Well appearing and in no apparent painful distress HEENT Conjunctiva and sclera clear. ?Pupils equal round and reactive to light. ?No lymphadenopathy. ? CHEST/RESPIRATORY SYSTEM Normal respiratory effort and able to speak in complete sentences. ?Clear to auscultation bilaterally. ?No crackles, rales, rhonchi, wheezes heard. CARDIAC SYSTEM Regular rate and rhythm. ?S1 and S2 heard no murmurs. ?Radial pulses intact bilaterally MSK Hands: ?Good associate financial advisor strength bilaterally. No deformities noted. ?No synovitis noted to the MCPs, PIPs or DIPs. ?No tenderness to palpation of these joints. Wrists: ?Full range of motion at the wrists without pain. ?No tenderness to palpation or synovitis noted to the wrists. Elbows: Full range of motion without pain. No tenderness, weakness, swelling, increased warmth or erythema. Shoulders: Full range of motion without pain. No tenderness, weakness, swelling, increased warmth or erythema. Hips: Full range of motion without pain. Hip bursa: No tenderness to palpation Knees: ?Full range of motion. ?No tenderness, swelling, increased warmth or erythema.?No effusion or crepitations Ankles: Full range of motion. ?No tenderness, swelling, increased warmth or erythema.? Feet: ?Negative squeeze test. ?No tenderness to palpation or swelling of the MTPs. Tender points:Tenderness to palpation of the bilateral trapezius, supraspinatus, and bilateral suboccipital muscle insertions SKIN Skin intact without rashes. Results Reviewed Results Reviewed: Laboratory Tests 07/20/23 11/09/23 07/07/24 10:04 13:02 12:52 WBC 3.6 L RBC 3.92 L Hgb 12.4 Hct 36.4 L Plt Count 277 ESR 19 Sodium 138 Potassium 4.6 Chloride 104 Carbon Dioxide 27 BUN 10 Creatinine 0.81 AST 29 ALT 39 H Alkaline Phosphatase 67 C-Reactive Protein < 0.04 Rheumatoid Factor < 13.0 Cycl Citrul Peptide IgG <16 PETTY Screen POSITIVE A PETTY Pattern Nuclear, Homogeneous A Thyroglobulin Antibody 4 H Complement C3 47 L 118 Complement C4 6 L 14 L HLA-B27 Negative XR Bilateral Hands/Wrists 11/09/23 FINDINGS: RIGHT HAND: Bones are diffusely demineralized. Moderate degenerative changes in the first carpometacarpal joint with joint space narrowing and hypertrophic change. Alignment maintained. LEFT HAND: Bones are diffusely demineralized. Moderate degenerative changes in the first carpometacarpal joint with joint space narrowing and hypertrophic change. Alignment maintained. Assessment & Plan Assessment & Plan (1) Fibromyalgia: Code(s): M79.7 - Fibromyalgia Category: Medical Plan: #Fibromyalgia Patient is a 63-year-old female with fibromyalgia. Evidence of fibromyalgia today on examination without any evidence of underlying inflammatory arthritis. No evidence of synovitis on examination of her MCPs, PIPs DIPs, elbows or knees. Discussed with patient the diagnosis of fibromyalgia and also gave pamphlet. We will try pregabalin Plan - Pregabalin 25mg bid daily - RTC 3 months to reevaluate (2) PETTY positive: Code(s): R76.8 - Other specified abnormal immunological findings in serum Category: Medical Plan: #Positive PETTY Patient with positive PETTY in the setting of polyarthralgias. No evidence of synovitis on examination and patient does not have any other signs or symptoms concerning for lupus, scleroderma or Sjogren's. Her positive PETTY also in accompanied by a positive TPO antibody which can explain the positive PETTY. Her TSH was normal about 1 year ago. She does not have any symptoms concerning for hypo or hyperthyroidism. She may have some element of undifferentiated connective tissue disease given her low complements however patient would like to try lifestyle changes and would not like to try Plaquenil at this time Plan I spent 20 minutes reviewing the record and labs, taking a history, examining the patient, discussing the treatment plan and documenting in the medical record Medications: New pregabalin 25 mg PO BID 180 caps 1RF M79.7 - Fibromyalgia Coding Level of Care Code Est Pt Level 3 (58578) Diagnoses Fibromyalgia M79.7 PETTY positive R76.8
[2024-07-12 14:10] VITALS: BP 115/62; PULSE 80; O2SAT 98; BMI 23.0
--- OUTSIDE RECORDS SUMMARY | 2024-07-12 14:16 | XMS_ITS | Encounter Summary ---
Author Organization [facility] Address [address] [place] [address] Care Team Providers Care Terrazzo Grinder Name Role Phone Carla Vang MD Primary Care Provider [phone] Ariana Harrell AXLE AND FRAME MECHANIC Unavailable [phone] Encounter Details Date Type Department Care Team (Late st Contact Info) Description 02/01/2019 Scanned Document [address] [phone] Carla Vang MD [address] [place], [place] [phone] Social History Tobacco Use Types Packs/Day Years [...] on filedocumented in this encounter Care Teams Terrazzo Grinder Relationship Specialty Start Date End Date Carla Vang MD [address] [place] [address] PCP - General Internal Medicine 03/15/18 12/24/20 Ariana Harrell, AXLE AND FRAME MECHANIC [address] [place] [address] Customer Service Manager Clinical Social Work 12/27/18 03/06/19 documented as of this encounter
--- OUTSIDE RECORDS SUMMARY | 2024-07-12 14:16 | XMS_ITS | Encounter Summary ---
Author Organization [facility] Address [address] [place] [address] Care Team Providers Care Stewarding Supervisor Name Role Phone Carla Vang MD Primary Care Provider + [phone] Reason for Visit * Reason Comments Medication Refill Encounter Details Date Type Department Care Team (Late st Contact Info) Description 07/08/[address] [phone] Carla Vang MD [address] [place] [address] Reactive depression Social History Tobacco Use Types [...] depression documented in this encounter Care Teams Stewarding Supervisor Relationship Specialty Start Date End Date Carla Vang MD [address] [place] [address] PCP - General Internal Medicine 03/15/18 12/24/20 documented as of this encounter
--- OUTSIDE RECORDS SUMMARY | 2024-07-12 14:16 | XMS_ITS | Encounter Summary ---
Author Organization [facility] Address [address] [place] [address] Care Team Providers Care Cushion Stuffer Name Role Phone Carla Vang MD Primary Care Provider + [phone] Reason for Visit * Reason Comments Medication Refill Encounter Details Date Type Department Care Team (Late st Contact Info) Description 04/09/[address] [phone] Carla Vang MD [address] [place] [address] Reactive depression Social History Tobacco Use Types [...] depression documented in this encounter Care Teams Cushion Stuffer Relationship Specialty Start Date End Date Carla Vang MD [address] [place] [address] PCP - General Internal Medicine 03/15/18 12/24/20 documented as of this encounter
--- OUTSIDE RECORDS SUMMARY | 2024-07-12 14:16 | XMS_ITS | Clinical Summary ---
Author Organization [facility] Address [address] [place] [address] Care Team Providers Care Load Dispatcher Name Role Phone Unavailable Primary Care Provider [...] Comments IMAGING BREAST/BX/MAMMO 09/29/2018 THINPREP PAP TEST (SORTER PACKER) WITH HPV REFLEX Routine 04/19/2018 11:44 AM [...] LEGACY PROCEDURE S * ThinPrep Pap Test (Learning Support Services Director) with HPV Reflex (04/19/2018 11:44 AM EST) [...] has been evaluated with computer assisted technology. Cnc Machinist 2Nd Shift: [facility] Comment: DMM, CT(ASCP) CT screening location: [address] ??[address] Review Cnc Machinist 2Nd Shift: [facility] Comment: [place], CT(ASCP) CT screening location: [facility] [address] ??[address] Comment [facility] Comment: EXPLANATORY NOTE: The Pap [...] Performing Organization Information: ?Site ID: [id number] ?Name: [facility] ?Address: [address] [place] [phone] ?Director: Israel Mckeon MD Carla Vang MD PATHOLOGY/CYTOLOGY O RDERABLES Performing Organization Address [facility] de Phone Number [facility] [address] [place] [phone] * Hepatitis C Virus (HCV) Antibody (03/24/2018 7:42 AM EDT) Hepatitis C Antibody NON-REACTI VE NON-REACT NADAY [facility] Hepatitis C Antibody (s/co) 0.01 <1.00 [facility] Blood specimen (specimen) Blood specimen / Unknown 03/24/2018 7:42 AM EDT 03/24/2018 7:42 AM EDT Narrative [facility] - 03/25/2018 12:30 AM EDT FASTING:YES FASTING: YES Resulting Agency Comment Performing Organization Information: ?Site ID: [id number] ?Name: [id number] ?Address: [address] [place] [id number] ?Director: Israel Mckeon MD Carla Vang MD LAB BLOOD ORDERABLES Performing Organization Address [facility] de Phone Number [facility] [address] [place] [address] [place] [address] from Last 3 Months or Most Recently Relevant to Health Maintenance
--- OUTSIDE RECORDS SUMMARY | 2024-07-12 14:16 | XMS_ITS | Clinical Summary ---
Author Organization [facility] Address [address] [place] [address] Care Team Providers Care Supervisor Major Appliance Assembly Name Role Phone Unavailable Primary Care Provider [...] Plan of Treatment Not on file Insurance [place] DENT[place] HE[place] SAFETY NET DENTAL
--- OUTSIDE RECORDS SUMMARY | 2024-07-12 14:16 | XMS_ITS | Encounter Summary ---
Author Organization [facility] Address [address] [place] [address] Care Team Providers Care Aircraft Delivery Checker Name Role Phone Carla Vang MD Primary Care Provider + [phone] Ariana HarrellW Unavailable Encounter Details Date Type Department Care Team (Late st Contact Info) Description 09/01/2018 Scanned Document [address] [place] [phone] Provider, Generic Social History Tobacco Use [...] on filedocumented in this encounter Care Teams Aircraft Delivery Checker Relationship Specialty Start Date End Date Carla Vang MD [address] [place] [address] PCP - General Internal Medicine 03/15/18 12/24/20 Ariana Harrell LCSW [address] [place] [address] Hydroelectric Production Technician Clinical Social Work 12/27/18 03/06/19 documented as of this encounter
--- OUTSIDE RECORDS SUMMARY | 2024-07-12 14:16 | XMS_ITS | Encounter Summary ---
Author Organization [facility] Address [address] [place] [address] Care Team Providers Care Front Maker Lockstitch Name Role Phone Carla Vang MD Primary Care Provider + [phone] Ariana Harrell LCSW Unavailable [phone] Encounter Details Date Type Department Care Team (Late st Contact Info) Description 03/15/2018 Scanned Document [address] [phone] Provider, Generic Social History Tobacco Use Types [...] on filedocumented in this encounter Care Teams Front Maker Lockstitch Relationship Specialty [place] [address] [place] [address] PCP - General Internal Medicine 03/15/18 12/24/20 Ariana Harrell LCSW [address] [place] [address] Appraiser Land Clinical Social Work 12/27/18 03/06/19 documented as of this encounter
--- OUTSIDE RECORDS SUMMARY | 2024-07-12 14:16 | XMS_ITS | Encounter Summary ---
Author Organization [facility] Address [address] [place] [address] Care Team Providers Care Surgical Scheduler Name Role Phone Carla Vang MD Primary Care Provider + [phone] Ariana Harrell SATELLITE PROJECT SITE MONITOR Unavailable [phone] Encounter Details Date Type Department Care Team (Late st Contact Info) Description 12/23/2018 Scanned Document [address] [phone] Ariana Harrell, SATELLITE PROJECT SITE MONITOR [address] [place] [address] Social History Tobacco Use Types Packs/Day Years [...] on filedocumented in this encounter Care Teams Surgical Scheduler Relationship Specialty Start Date End Date Carla Vang MD [address] [place] [address] PCP - General Internal Medicine 03/15/18 12/24/20 Ariana Harrell, SATELLITE PROJECT SITE MONITOR [address] [place] [address] Active Directory Administrator Clinical Social Work 12/27/18 03/06/19 documented as of this encounter
--- OUTSIDE RECORDS SUMMARY | 2024-07-12 14:16 | XMS_ITS | Encounter Summary ---
Author Organization [facility] Address [address] [place] [address] Care Team Providers Care Haul Driver Name Role Phone Carla Vagn MD Primary Care Provider [phone] Ariana Harrell BURGLAR ALARM OPERATOR Unavailable [phone] Encounter Details Date Type Department Care Team (Late st Contact Info) Description 03/23/2018 Scanned Document [address] [phone] Carla Vang MD [address] [place], [place] [phone] Social History Tobacco Use Types Packs/Day Years [...] on filedocumented in this encounter Care Teams Haul Driver Relationship Specialty Start Date End Date Carla Vang MD [address] [place] [address] PCP - General Internal Medicine 03/15/18 12/24/20 Ariana Harrell, BURGLAR ALARM OPERATOR [address] [place] [address] Customer Experience Associate Clinical Social Work 12/27/18 03/06/19 documented as of this encounter
== END 2024-07-12 14:49 | disposition home or self-care (01) ==
PROVIDERS: PCP Physician Assistant; Visit Provider Student in an Organized Health Care Education/Training Program
DX: M79.7 Fibromyalgia (principal); R76.8 Other specified abnormal immunological findings in serum
CPT/HCPCS: 99213

== ENCOUNTER → 2024-07-12 13:59 | Outpatient (BNVA) | payer MEDICARE, MEDICAID, SELFPAY | PROVIDERS: PCP Physician Assistant; Visit Provider Student in an Organized Health Care Education/Training Program | DX: M79.7 Fibromyalgia (principal); R76.8 Other specified abnormal immunological findings in serum; M50.00 Cervical disc disorder with myelopathy, unspecified cervical region; M51.369 Other intervertebral disc degeneration, lumbar region without mention of lumbar back pain or lower extremity pain | CPT/HCPCS: 99212 ==

== ENCOUNTER 2024-08-01 10:06 | Outpatient (REF) | payer MEDICARE, MEDICAID, SELFPAY ==
--- OUTSIDE RECORDS SUMMARY | 2024-08-01 11:53 | XMS_ITS | Encounter Summary ---
Author Organization [facility] Address [address] [place] [address] Care Team Providers Care Restaurant Associate Name Role Phone Carla Vang MD Primary Care Provider [phone] Ariana Harrell SENIOR RESEARCH ENGINEER Unavailable [phone] Encounter Details Date Type Department Care Team (Late st Contact Info) Description 02/01/2019 Scanned Document [address] [phone] Carla Vang MD [address] [place], [place] [id number] Social History Tobacco Use Types Packs/Day Years [...] on filedocumented in this encounter Care Teams Restaurant Associate Relationship Specialty Start Date End Date Carla Vang MD [address] [place] [address] PCP - General Internal Medicine 03/15/18 12/24/20 Ariana Harrell, SENIOR RESEARCH ENGINEER [address] [place] [address] Keyliner Clinical Social Work 12/27/18 03/06/19 documented as of this encounter
--- OUTSIDE RECORDS SUMMARY | 2024-08-01 11:53 | XMS_ITS | Encounter Summary ---
Author Organization [facility] Address [address] [place] [address] Care Team Providers Care Hardboard Coating Machine Operator Name Role Phone Carla Vang MD Primary Care Provider + [phone] Ariana Harrell CULTURAL CENTRE MANAGER Unavailable [phone] Encounter Details Date Type Department Care Team (Late st Contact Info) Description 12/23/2018 Scanned Document [address] [phone] Ariana Harrell, CULTURAL CENTRE MANAGER [address] [place] [address] Social History Tobacco Use Types Packs/Day Years [...] on filedocumented in this encounter Care Teams Hardboard Coating Machine Operator Relationship Specialty Start Date End Date Carla Vang MD [address] [place] [address] PCP - General Internal Medicine 03/15/18 12/24/20 Ariana Harrell, CULTURAL CENTRE MANAGER [address] [place] [address] Veneer Glue Jointer Feedback Clinical Social Work 12/27/18 03/06/19 documented as of this encounter
--- OUTSIDE RECORDS SUMMARY | 2024-08-01 11:53 | XMS_ITS | Encounter Summary ---
Author Organization [facility] Address [address] [place] [address] Care Team Providers Care Global Product Manager Name Role Phone Carla Vang MD Primary Care Provider + [phone] Ariana Harrell LCSW Unavailable [phone] Encounter Details Date Type Department Care Team (Late st Contact Info) Description 03/15/2018 Scanned Document [address] [phone] Provider, Generic Social History Tobacco Use Types [...] on filedocumented in this encounter Care Teams Global Product Manager Relationship Specialty [place] [address] [place] [address] PCP - General Internal Medicine 03/15/18 12/24/20 Ariana Harrell LCSW [address] [place] [address] Accounting Tutor Clinical Social Work 12/27/18 03/06/19 documented as of this encounter
--- OUTSIDE RECORDS SUMMARY | 2024-08-01 11:53 | XMS_ITS | Encounter Summary ---
Author Organization [facility] Address [address] [place] [address] Care Team Providers Care International Project Manager Name Role Phone Carla Vang MD Primary Care Provider [phone] Ariana Harrell TELETYPE ADJUSTER Unavailable [phone] Encounter Details Date Type Department Care Team (Late st Contact Info) Description 03/23/2018 Scanned Document [address] [phone] Carla Vang MD [address] [place], [place] [phone] Social History Tobacco Use Types Packs/Day Years [...] on filedocumented in this encounter Care Teams International Project Manager Relationship Specialty Start Date End Date Carla Vang MD [address] [place] [address] PCP - General Internal Medicine 03/15/18 12/24/20 Ariana Harrell, TELETYPE ADJUSTER [address] [place] [address] Compressor Operator Clinical Social Work 12/27/18 03/06/19 documented as of this encounter
--- OUTSIDE RECORDS SUMMARY | 2024-08-01 11:53 | XMS_ITS | Encounter Summary ---
Author Organization [facility] Address [address] [place] [address] Care Team Providers Care Network Consultant Name Role Phone Carla Vang MD Primary Care Provider + [phone] Ariana HarrellW Unavailable Encounter Details Date Type Department Care Team (Late st Contact Info) Description 09/01/2018 Scanned Document [address] [place] [phone] Provider, Generic Social History Tobacco Use [...] on filedocumented in this encounter Care Teams Network Consultant Relationship Specialty Start Date End Date Carla Vang MD [address] [place] [address] PCP - General Internal Medicine 03/15/18 12/24/20 Ariana Harrell LCSW [address] [place] [address] Vocational Nurse Clinical Social Work 12/27/18 03/06/19 documented as of this encounter
--- OUTSIDE RECORDS SUMMARY | 2024-08-01 11:53 | XMS_ITS | Encounter Summary ---
Author Organization [facility] Address [address] [place] [address] Care Team Providers Care Head Men'S Tennis Coach Name Role Phone Carla Vang MD Primary Care Provider + [phone] Reason for Visit * Reason Comments Medication Refill Encounter Details Date Type Department Care Team (Late st Contact Info) Description 04/09/[address] [phone] Carla Vang MD [address] [place] [address] Reactive depression Social History Tobacco Use Types [...] depression documented in this encounter Care Teams Head Men'S Tennis Coach Relationship Specialty Start Date End Date Carla Vang MD [address] [place] [address] PCP - General Internal Medicine 03/15/18 12/24/20 documented as of this encounter
--- OUTSIDE RECORDS SUMMARY | 2024-08-01 11:53 | XMS_ITS | Clinical Summary ---
Author Organization [facility] Address [address] [place] [address] Care Team Providers Care Software Engineer Kernel Name Role Phone Unavailable Primary Care Provider [...] Plan of Treatment Not on file Insurance [place] DENTAL
--- OUTSIDE RECORDS SUMMARY | 2024-08-01 11:53 | XMS_ITS | Encounter Summary ---
Author Organization [facility] Address [address] [place] [address] Care Team Providers Care Ios Software Engineer Name Role Phone Carla Vang MD Primary Care Provider + [phone] Reason for Visit * Reason Comments Medication Refill Encounter Details Date Type Department Care Team (Late st Contact Info) Description 07/08/[address] [phone] Carla Vang MD [address] [place] [phone] Reactive depression Social History Tobacco Use Types [...] depression documented in this encounter Care Teams Ios Software Engineer Relationship Specialty Start Date End Date Carla Vang MD [address] [place] [address] PCP - General Internal Medicine 03/15/18 12/24/20 documented as of this encounter
--- OUTSIDE RECORDS SUMMARY | 2024-08-01 11:53 | XMS_ITS | Clinical Summary ---
Author Organization [facility] Address [address] [place] [address] Care Team Providers Care Head Filter Press Tender Name Role Phone Unavailable Primary Care Provider [...] Comments IMAGING BREAST/BX/MAMMO 09/29/2018 THINPREP PAP TEST (SUBSTANCE ABUSE THERAPIST) WITH HPV REFLEX Routine 04/19/2018 11:44 AM [...] LEGACY PROCEDURE S * ThinPrep Pap Test (Systems Librarian) with HPV Reflex (04/19/2018 11:44 AM EST) [...] has been evaluated with computer assisted technology. Mental Hygiene Consultant: [facility] Comment: DMM, CT(ASCP) CT screening location: [address] ??[phone] Review Mental Hygiene Consultant: [facility] Comment: GSG, CT(ASCP) CT screening location: [facility] [address] ??[id number] Comment [facility] Comment: EXPLANATORY NOTE: The Pap [...] Performing Organization Information: ?Site ID: [id number] ?Name: [facility] ?Address: [address] [place] [phone] ?Director: Israel Mckeon MD Carla Vang MD LAB AMB PATH/CYTO OR DERABLES Performing Organization Address [facility] de Phone Number [facility] [address] [place] [phone] * Hepatitis C Virus (HCV) Antibody (03/24/2018 7:42 AM EDT) Hepatitis C Antibody NON-REACTI VE NON-REACT NADYA [facility] Hepatitis C Antibody (s/co) 0.01 <1.00 [facility] Blood specimen (specimen) Blood specimen / Unknown 03/24/2018 7:42 AM EDT 03/24/2018 7:42 AM EDT Narrative [facility] - 03/25/2018 12:30 AM EDT FASTING:YES FASTING: YES Resulting Agency Comment Performing Organization Information: ?Site ID: [id number] ?Name: [facility] ?Address: [address] [place] [phone] ?Director: Israel Mckeon MD Carla Vang MD LAB BLOOD ORDERABLES Performing Organization Address [facility] de Phone Number [facility] [address] [place] [address], [place] [address] from Last 3 Months or Most Recently Relevant to Health Maintenance
== END 2024-08-01 10:07 | disposition home or self-care (01) ==
LOC: HO.LAB 10:06
PROVIDERS: PCP Physician Assistant; Visit Provider Physician Assistant
DX: E78.2 Mixed hyperlipidemia (principal); M54.12 Radiculopathy, cervical region; M96.1 Postlaminectomy syndrome, not elsewhere classified; M79.7 Fibromyalgia; J30.89 Other allergic rhinitis; F41.1 Generalized anxiety disorder; F33.1 Major depressive disorder, recurrent, moderate
CPT/HCPCS: 96127; 99212

== ENCOUNTER 2024-08-01 10:13 | Outpatient (AMB) | payer MEDICARE, SELFPAY ==
--- NOTE | 2024-08-01 10:20 | A.OFFPC_ITS ---
Vital Signs 08/01/24 10:22 Height 5 ft 6 in Weight 140 lb BMI 22.6 BP 118/74 Blood Pressure Location Lt brachial Position Sitting Pulse 68 Pulse Source Pulse Oximeter Pulse Oximetry (%) 97 Oxygen Delivery Method Room Air Intake Visit Reasons: 6 mo follow up Intake Note: Patient here for a 6 month follow up Director Post Required: No Accompanied by: Self / Same As Patient Allergies No Known Allergies Allergy (Verified 08/01/24 10:35) Medication List - Last Reconciled 08/01/24 by Cecil Gan PA-C acetaminophen ER (Tylenol 8 Hour) 650 mg PO Q12H 30 days atorvastatin 10 mg PO DAILY bupropion HCl SR 200 mg PO QAM dextroamphetamine-amphetamine 10 mg (Adderall) 10 mg PO BID lorazepam 1 mg PO BID meloxicam 15 mg PO DAILY 90 days methocarbamol 750 mg PO Q8H PRN 10 days pantoprazole (Protonix) 20 mg PO DAILY 90 days pregabalin 25 mg PO BID sertraline 50 mg PO DAILY Tobacco use date assessed: 08/01/24 Fall risk assessment: No Falls in past year Last assessed Fall Risk: 08/01/24 Dental Screening Dental Screen Date: 08/01/24 Did you have a dental visit in the last 12 months?: Yes Did you have a dental problem in the last 6 months where you did not have access to dental care?: No Was dental information given to patient?: Patient has dentist HPI 6 mo follow up HPI Details Patient is a 63-year-old female here today for a follow-up visit. Polyarthralgia: including cervical and lumbar spine pain. . She was started on meloxicam recently which has helped a little. Has followed up with [facility] in has gotten extensive lab testing though have not met the level autoimmune inflammatory arthritis. She has been started on pregabalin for a diagnosis of fibromyalgia Patient continues to be pain especially in her neck and lower back. She will be starting physical therapy today. She used to the naproxen should be helpful. Does have Tylenol that she uses from time to time. She has use Robaxin in the past with decent affect on reducing her pain. Of note did follow with pain management few months ago and was offered injections though were not covered through insurance. She is apprehensive on starting injections at this time will hold off for now. Hyperlipidemia: Has continue on atorvastatin 10 mg without side effect. Most recent lipid panel done in 07/13/2023 showing elevated total cholesterol and LDL. She is working on lifestyle and dietary modifications. Will be rechecking her lipid panel in near future. Fibromyalgia: seeking to evaluate and possibly adjust her medication regime. The patient describes persistent fatigue and an over-reliance on medications including Adderall, which she aims to taper off. The patient's underlying issues of depression and anxiety are managed with Zoloft and Wellbutrin. .. Allergic rhinitis: The patient experiences allergic rhinitis, with standard remedies proving increasingly ineffectual. Her lifestyle is considerably sedentary due to mobility-limiting pain, and she notes a cessation of meloxicam due to adverse interactions. The subsequent recommendation includes Tylenol for headache relief and plans to explore changes in her fibromyalgia medications. [facility] Medical History Osteopenia after menopause Colon adenomas Cervical spondylitis Pharyngoesophageal dysphagia DONNIE (generalized anxiety disorder) Leukopenia Depression Menopause Lumbar radiculopathy Hyperlipidemia Fibromyalgia Anxiety Surgical History History of colonoscopy History of back surgery History of tubal ligation Family History Father Lung cancer Plaque psoriasis Mother Lung cancer Paternal Uncle Colon cancer Sister Raynaud's disease Social History Household Members Other:: lives with adult daughter Housing: House Alcohol intake: current Alcohol intake frequency: holidays/special occasions only Patient Tobacco Use Status: Former Tobacco user Tobacco use type: Cigarette e-Cigarette/Vaping Use: Never Used Second Hand Smoke Exposure: No service: No Current occupational status: employed 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 1. Little interest or pleasure in doing things: several days 2. Feeling down, depressed, or hopeless: several days 3. Trouble falling or staying asleep, or sleeping too much: not at all 4. Feeling tired or having little energy: nearly every day 5. Poor appetite or overeating: not at all 6. Feeling bad about yourself - or that you are a failure or have let yourself or your family down: not at all 7. Trouble concentrating on things, such as reading the newspaper or watching television: several days 8. Moving or speaking so slowly that other people could have noticed. Or the opp osite - being so fidgety or restless that you have been moving around a lot more than usual: several days 9. Thoughts that you would be better off or of hurting yourself in some way: not at all Total score: 7 Depression Screening Interpretation: Positive Depression Screening Follow-up: Existing condition and In treatment Depression Screening Done: Yes 70043 - PHQ-9 Billing: Yes Source: Developed by Drs. Umang Bryan, Zenaida Andrade, Los Cunningham and colleagues, with an educational bala from [employer]. Thrive Questionnaire Date Thrive assessed: 08/01/24 I am a: Patient What is your living situation today?: I have a steady place to live Within the past 12 months, did the food you bought not last and you didn't have the money to get more?: Never true Within the past 12 months, did you worry whether your food would run out before you got money to buy more?: Never true Do you have trouble paying for medicines?: No Do you have trouble getting transportation to medical appointments?: No Do you have trouble paying your heating and electricity bill?: No Do you have trouble taking care of your child, family member or friend?: No Do you have trouble with day-to-day activities such as bathing, preparing meals, shopping, managing finances, etc.?: No Are you currently unemployed and looking for a job?: No Are you interested in more education?: No Please select the resources that you would like help with: None Currently or been in a relationship where the following occur: No concerns reported THRIVE Score: 0 AUDIT C Alcohol Use Questionnaire (AUDIT-C) 1. How often do you have a drink containing alcohol?: Monthly or less 2. How many drinks containing alcohol do you have on a typical day when you are drinking?: 1 or 2 3. How often do you have six or more drinks on one occasion?: Never Total Score: 1 DONNIE-7 AMB Questionnaire DONNIE-7 Date DONNIE - 7 assessed: 08/01/24 Feeling nervous, anxious, or on edge: 1 = Several days Not being able to stop or control worryin = Several days Worrying too much about different things: 1 = Several days Trouble relaxin = Several days Being so restless that it is hard to sit still: 0 = Not at all Becoming easily annoyed or irritable: 1 = Several days Feeling afraid as if something awful might happen: 0 = Not at all Total DONNIE-7 score (0-4 normal; 5-9 mild; 10-14 moderate; 15-21 severe): 5 Source: Developed by Drs. Umang Bryan, Zenaida Andrade, oLs Cunningham and colleagues, with an educational bala from [employer]. DONNIE-7 Assessment Billing DONNIE-7 Assessment Tool: DONNIE-7 Assessment 08665 Review of Systems Const Reports fatigue and Denies headache(s) Eyes Denies loss of vision ENT Denies vertigo, Denies dizziness, Denies headache(s), Reports neck pain and Denies sore throat Card Denies chest pain, Denies leg edema and Denies lightheadedness Resp Denies cough, Denies hemoptysis and Denies wheezing GI Denies abdominal pain, Denies melena, Denies constipation, Denies diarrhea and Denies vomiting Denies urinary frequency, Denies dysuria and Denies urinary urgency Musc Reports back pain, Reports arthralgias, Denies joint swelling, Reports limited range of motion, Reports muscle weakness, Reports neck pain, Denies numbness and Denies tingling Neuro Denies Abnormal speech present, Denies behavioral changes, Denies vertigo, Den ies dizziness, Denies headache(s), Denies loss of vision, Denies memory loss, Denies numbness and Denies tingling Psych Denies anxiety, Denies behavioral changes, Denies depression, Denies memory loss and Denies panic attacks Endo Reports fatigue Drew/Lymph Denies easy bleeding and Denies easy bruising Aller/Immun Denies wheezing Physical exam (Primary Care) Vital Signs: Last Vital Signs Pulse 68 08/01/24 10:22 BP 118/74 08/01/24 10:22 Pulse Ox 97 08/01/24 10:22 Oxygen Delivery Method Room Air 08/01/24 10:22 BMI result Body Mass Index 22.6 Tobacco/Smoking Status: Tobacco use Status Tobacco use date assessed 08/01/24 08/01/24 10:31 Patient Tobacco Use Status Former Tobacco user 08/01/24 10:21 Tobacco use type Cigarette 08/01/24 10:31 e-Cigarette/Vaping Use Never Used 08/01/24 10:21 PHQ-9: PHQ-9 Score PHQ-9: Total score 7 08/01/24 10:56 Depression Screening Interpretation: Positive Depression Screening Follow-up: Existing condition and In treatment Thrive Assessment: Date of Thrive Assessment Date Thrive assessed 08/01/24 08/01/24 10:31 Currently or been in a relationship where the following occur: No concerns reported Const General: healthy appearing, no acute distress, alert and awake Nutritional Appearance: well nourished Orientation/consciousness: oriented to person, oriented to place and oriented to time HENMT Ears: TM's normal bilaterally General nose exam: Normal nasal mucous membranes and turbinates present Eyes Conjunctivae: conjunctivae normal Sclerae: sclerae normal Pupils: Equal, round and reactive pupils present Neck Neck: Yes no lymphadenopathy and Yes no JVD Thyroid: Thyroid normal Carotids: no bruits Resp Effort & Inspection: normal respiratory effort and not tachypneic Auscultation: no crackles, no rales, no rhonchi and no wheezes Cardio Rate: regular rate Rhythm: regular rhythm Heart sounds: no murmurs and normal S1 and S2 GI Palpation (GI): Soft to palpation, nontender, no hepatomegaly and no splenomegaly Auscultation: normal bowel sounds Skin General skin exam: no rashes or lesions noted and dry skin Neuro General: oriented to person, oriented to place and oriented to time Cranial nerves: Yes Equal, round and reactive pupils present Speech: No Abnormal speech present Gait exam (Neuro): Normal gait present Motor exam (neuro): no tremor noted Extrem Right upper extremity: full ROM Left upper extremity: full ROM Right lower extremity: full ROM; no edema Left lower extremity: full ROM; no edema Psych Mental Status: mental status grossly normal Speech and movement: Normal speech and movement present Affect: normal affect Attitude: cooperative Thought process: Normal thought process present Coding Level of Care Code Est Pt Level 4 (43947) Diagnoses Mixed hyperlipidemia E78.2 Hyperlipidemia type: mixed hyperlipidemia Cervical radiculitis M54.12 Lumbar post-laminectomy syndrome M96.1 Fibromyalgia M79.7 Non-seasonal allergic rhinitis, unspecified trigger J30.89 Allergic rhinitis seasonality: non-seasonal Allergic rhinitis trigger: unspecified Encounter for screening mammogram for malignant neoplasm of breast Z12.31 Breast cancer screening modality: mammogram MDD (major depressive disorder), recurrent episode, moderate F33.1 DONNIE (generalized anxiety disorder) F41.1 Additional Codes DONNIE-7 Assessment Billing - DONNIE-7 Assessment Tool: DONNIE-7 Assessment 75325 ([id number]) PHQ-9 - 73916 - PHQ-9 Billing: Yes ([id number]) Assessment & Plan Assessment & Plan (1) HLD (hyperlipidemia): Code(s): E78.5 - Hyperlipidemia, unspecified Category: Medical Qualifiers: Hyperlipidemia type: mixed hyperlipidemia Qualified Code(s): E78.2 - Mixed hyperlipidemia Plan: Patient continues on atorvastatin 10 mg. She is due for repeat fasting lipid panel to ensure medication effectiveness. Goal LDL to be below 130 (2) Cervical radiculitis: Code(s): M54.12 - Radiculopathy, cervical region Category: Medical Plan: Patient has been evaluated by neurosurgeon in is not a clear surgical candidate at this point. She has followed up with Rheumatology and was diagnosed with fibromyalgia and was started on pregabalin at lowest dose. She is considering up titrating per her pain response. (3) Lumbar post-laminectomy syndrome: Code(s): M96.1 - Postlaminectomy syndrome, not elsewhere classified Category: Medical Plan: As above. Patient also having lower extremity pain, neuropathic symptoms in some weakness. (4) Fibromyalgia: Code(s): M79.7 - Fibromyalgia Category: Medical Plan: Adjust pregabalin dosage, physical therapy implementation under evaluation. (5) Allergic rhinitis: Code(s): J30.9 - Allergic rhinitis, unspecified Category: Medical Qualifiers: Allergic rhinitis seasonality: non-seasonal Allergic rhinitis trigger: unspecified Qualified Code(s): J30.89 - Other allergic rhinitis Plan: Initiation of acetylcysteine nasal spray trial in addressing persistent rhinitis. (6) Breast cancer screening: Code(s): Z12.39 - Encounter for other screening for malignant neoplasm of breast Category: Medical Qualifiers: Breast cancer screening modality: mammogram Qualified Code(s): Z12.31 - Encounter for screening mammogram for malignant neoplasm of breast Plan: Patient asking for a particular pressure ultrasound for dense breast tissue. (7) MDD (major depressive disorder), recurrent episode, moderate: Code(s): F33.1 - Major depressive disorder, recurrent, moderate Category: Medical Plan: Patient's PHQ-9 score positive for depression which has been existing condition for her. She continues on mental health medications which may may not be working. She does see a mental health therapist and a psychiatrist who manages her mental health medications. (8) DONNIE (generalized anxiety disorder): Code(s): F41.1 - Generalized anxiety disorder Category: Medical Plan: Patient's DONNIE-7 score positive anxiety which has been existing condition for her. As above Medications: New azelastine administer into each nostril 1 spray intranasal BID 30 mL 3RF 30 days J30.9 - Allergic rhinitis, unspecified Discontinued meloxicam Discontinued Reason: Doctor's Order 15 mg PO DAILY 90 days 90 tabs 1RF M53.3 - Sacrococcygeal disorders, not elsewhere classified Patient Instructions: Goal: LDL to be below 130 Barriers: Chronic pain, Adherence to physical activity and healthy eating habits
[2024-08-01 10:22] VITALS: BP 118/74; PULSE 68; O2SAT 97; BMI 22.6
--- OUTSIDE RECORDS SUMMARY | 2024-08-01 12:01 | XMS_ITS | Data Portability ---
Author Organization [facility], TERM_ERIKAG_SENDY[facility] Address [address] [place] [address] oscar MD LUNA [address] Assessment No assessment recorded. Plan of Treatment Reminders Order Date Submit Date Provider Last Modified By Organization Details Last Modified Time Details Appointments None recorded. Lab None recorded. Referral None recorded. Procedures None recorded. Surgeries None recorded. Imaging None recorded. Medication Orders azithromyc in 250 mg tablet 2017 018 INTERFACE [id number], [address] [place], [place], [id number], 8 18:48:10 Tessalon Perles 100 mg capsule 2017 018 INTERFACE [facility] [employer] #[id number], [address] [place], [place], [id number], 8 18:48:09 Patient TargetsNo targets recorded. Patient [...] Address Organization Details Last Updated DateTime 8 55759.7 8 g 94 /min 97 % 97 % 98.2 [degF] 112 mm[Hg] 82 mm[Hg] Holden Read [facility] 8 18:21:32 Social History Question Answer Notes LastModified by Organizat ion Details LastModified Time Tobacco Smoking Status Never Smoker Holden Read null, [facility] 07/16/2017 18:20:27 What Was The Date Of Your Most Recent Tobacco Screening? 07/16/2017 Information n ot available 12/17/2018 Sex: Unknown Functional Status None recorded. Mental Status None recorded. Family History Relationship Description Onset Age of this Age Resolved Age Notes LastModified by Organization Details LastModified Time Father No current problems or disability [email or web address] Not available 06/25 18:20:30 Mother No current problems or disability [email or web address] Not available 06/25 18:20:30 Medical History No medical history recorded. Gynecological HistoryNo gynecological history recorded. Obstetrics History GPAL:G 0 P 0 0 0 0 Past Encounters Encounter ID Performer Location Encounter Start Date Encounter Closed Date Diagnosis/Indication Diagnosis SNOMED-CT Code Diagnosis ICD10 Code Diagnosis Note [id number] ELIZABETH Danielson TERM_PMG_ ALEX_[facility] [address] [facility],[address] [place] [address] 07/16/2017 18:02:10 07/16/2017 18:57:07 Community acquired pneumonia 103692474 J18.9 -Rest, to prevent dehydratio n, drink [...] ELIZABETH Danielson [address], [place], [address], [facility] 07/16/2017 18:52:35 OBGyn Episode No OBEpisode recorded.
== END 2024-08-01 10:52 | disposition home or self-care (01) ==
LOC: HO.HMCH 10:14
PROVIDERS: PCP Physician Assistant; Visit Provider Physician Assistant
DX: E78.2 Mixed hyperlipidemia (principal); F33.1 Major depressive disorder, recurrent, moderate; M54.12 Radiculopathy, cervical region; M96.1 Postlaminectomy syndrome, not elsewhere classified; M79.7 Fibromyalgia; J30.89 Other allergic rhinitis; Z12.31 Encounter for screening mammogram for malignant neoplasm of breast; F41.1 Generalized anxiety disorder

== ENCOUNTER 2024-09-13 10:11 | Outpatient (REF) | payer MEDICARE, OTHER, SELFPAY ==
--- OUTSIDE RECORDS SUMMARY | 2024-09-13 11:53 | XMS_ITS | Encounter Summary ---
Author Organization [facility] Address [address] [place] [address] Care Team Providers Care Fiberglass Product Tester Name Role Phone Carla Vang MD Primary Care Provider [phone] Ariana HarrellW Unavailable [phone] Encounter Details Date Type Department Care Team (Late st Contact Info) Description 09/01/2018 Scanned Document [address] [place] [phone] Provider, Generic Social History Tobacco Use [...] of Binge Drinking Not on file 01/23 Comments No Sex and Gender Information Value Date Recorded Sex Assigned at Not on file Legal Sex Female 1:38 PM EDT Gender Identity Not on file Sexual Orientation [...] Narrative 09/29/2018 Ordered by an unspecified provider. us Generic Provider IMG LEGACY PROCEDURES Edited Re sult - Final * IMAGING BREAST/BX/MAMMO (09/15/2018) Anatomical Region Laterality Modality Other Narrative 09/15/2018 Ordered by an unspecified provider. us Generic Provider IMG LEGACY PROCEDURES Edited Re sult - Final * IMAGING BREAST/BX/MAMMO (09/15/2018) Anatomical Region Laterality Modality Other Narrative 09/15/2018 Ordered by an unspecified provider. us Generic Provider IMG LEGACY PROCEDURES Final Res ult * IMAGING BREAST/BX/MAMMO (09/01/2018) Anatomical Region Laterality Modality Other Narrative 09/01/2018 Ordered by an unspecified provider. us Generic Provider IMG LEGACY PROCEDURES Edited Re sult - Final * IMAGING BREAST/BX/MAMMO (09/01/2018) Anatomical Region Laterality Modality Other Narrative 09/01/2018 Ordered by an unspecified provider. us Generic Provider IMG LEGACY PROCEDURES Edited Re sult - Final documented in this encounter Visit Diagnoses Not on filedocumented in this encounter Care Teams Fiberglass Product Tester Relationship Specialty Start Date End Date Carla Vang MD [address] [place] [address] PCP - General Internal Medicine 03/15/18 12/24/20 Ariana Harrell ALINING INSPECTOR [address] [place] [address] Electronics Design Engineer Clinical Social Work 12/27/18 03/06/19 documented as of this encounter
--- OUTSIDE RECORDS SUMMARY | 2024-09-13 11:53 | XMS_ITS | Data Portability ---
Author Organization [facility] [employer] [facility], TERM_ERIKAG_SENDY[facility] Address [address] [place] [address] oscar [place] LUNA [address] Assessment No assessment recorded. Plan of Treatment Reminders Order Date Submit Date Provider Last Modified By Organization Details Last Modified Time Details Appointments None recorded. Lab None recorded. Referral None recorded. Procedures None recorded. Surgeries None recorded. Imaging None recorded. Medication Orders azithromyc in 250 mg tablet 2017 018 [facility]FACE [id number], [address] [place], [place], [id number], 8 18:48:10 Tessalon Perles 100 mg capsule 2017 018 INTERFACE [facility] [employer] #[id number], [address] [place], [place], [id number], 8 18:48:09 Patient TargetsNo targets recorded. Patient [...] Address Organization Details Last Updated DateTime 8 32255.7 8 g 94 /min 97 % 97 % 98.2 [degF] 112 mm[Hg] 82 mm[Hg] Holden Read [facility] 8 18:21:32 Social History Question Answer Notes LastModified by Organizat ion Details LastModified Time Tobacco Smoking Status Never Smoker Holden Read null, [facility] 07/16/2017 18:20:27 What Was The Date Of Your Most Recent Tobacco Screening? 07/16/2017 Information n ot available 12/17/2018 Sex: Unknown Functional Status None recorded. Mental Status None recorded. Family History Relationship Description Onset Age of this Age Resolved Age Notes LastModified by Organization Details LastModified Time Father No current problems or disability [email or web address] Not available 06/25 18:20:30 Mother No current problems or disability [email or web address] Not available 06/25 18:20:30 Medical History No medical history recorded. Gynecological HistoryNo gynecological history recorded. Obstetrics History GPAL:G 0 P 0 0 0 0 Past Encounters Encounter ID Performer Location Encounter Start Date Encounter Closed Date Diagnosis/Indication Diagnosis SNOMED-CT Code Diagnosis ICD10 Code Diagnosis Note [id number] ELIZABETH Danielson TERM_PMG_ ALEX_Alex [facility] [address] [facility],[address] [place] [address] 07/16/2017 18:02:10 07/16/2017 18:57:07 Community acquired pneumonia [id number] J18.9 -Rest, to prevent dehydratio n, drink [...] SOB, wheezing. ELIZABETH Danielson [address], [place], [address], [facility] 07/16/2017 18:52:35 OBGyn Episode No OBEpisode recorded.
--- OUTSIDE RECORDS SUMMARY | 2024-09-13 11:53 | XMS_ITS | Encounter Summary ---
Author Organization [facility] Address [address] [place] [address] Care Team Providers Care Speech Professor Name Role Phone Carla Vang MD Primary Care Provider [phone] Ariana Harrell CORRESPONDENCE CLERK Unavailable [phone] Encounter Details Date Type Department Care Team (Late st Contact Info) Description 02/01/2019 Scanned Document [address] [phone] Carla Vang MD [address] [place], [place] [phone] Social History Tobacco Use Types Packs/Day Years [...] on filedocumented in this encounter Care Teams Speech Professor Relationship Specialty Start Date End Date Carla Vang MD [address] [place] [address] PCP - General Internal Medicine 03/15/18 12/24/20 Ariana Harrell, CORRESPONDENCE CLERK [address] [place] [address] Arcade Games Mechanic Clinical Social Work 12/27/18 03/06/19 documented as of this encounter
--- OUTSIDE RECORDS SUMMARY | 2024-09-13 11:53 | XMS_ITS | Encounter Summary ---
Author Organization [facility] Address [address] [place] [address] Care Team Providers Care Yard Driver Name Role Phone Carla Vang MD Primary Care Provider [phone] Ariana Harrell PLASTERER SPOT Unavailable [phone] Encounter Details Date Type Department Care Team (Late st Contact Info) Description 03/23/2018 Scanned Document [address] [phone] Carla Vang MD [address] [place], [place] [phone] Social History Tobacco Use Types Packs/Day Years [...] on filedocumented in this encounter Care Teams Yard Driver Relationship Specialty Start Date End Date Carla Vang MD [address] [place] [address] PCP - General Internal Medicine 03/15/18 12/24/20 Ariana Harrell, PLASTERER SPOT [address] [place] [address] Facility Service Associate Clinical Social Work 12/27/18 03/06/19 documented as of this encounter
--- OUTSIDE RECORDS SUMMARY | 2024-09-13 11:53 | XMS_ITS | Encounter Summary ---
Author Organization [facility] Address [address] [place] [address] Care Team Providers Care Senior Oracle Database Administrator Name Role Phone Carla Vang MD Primary Care Provider [phone] Reason for Visit * Reason Comments Medication Refill Encounter Details Date Type Department Care Team (Late st Contact Info) Description 07/08/[address] [phone] Carla Vang MD [address] [place] [phone] Reactive depression Social History Tobacco Use Types [...] depression documented in this encounter Care Teams Senior Oracle Database Administrator Relationship Specialty Start Date End Date Carla Vang MD [address] [place] [address] PCP - General Internal Medicine 03/15/18 12/24/20 documented as of this encounter
--- OUTSIDE RECORDS SUMMARY | 2024-09-13 11:53 | XMS_ITS | Encounter Summary ---
Author Organization [facility] Address [address] [place] [address] Care Team Providers Care Air Grinder Name Role Phone Carla Vang MD Primary Care Provider [phone] Reason for Visit * Reason Comments Medication Refill Encounter Details Date Type Department Care Team (Late st Contact Info) Description 04/09/[address] [phone] Carla Vang MD [address] [place] [address] Reactive depression Social History Tobacco Use Types [...] depression documented in this encounter Care Teams Air Grinder Relationship Specialty Start Date End Date Carla Vang MD [address] [place] [address] PCP - General Internal Medicine 03/15/18 12/24/20 documented as of this encounter
--- OUTSIDE RECORDS SUMMARY | 2024-09-13 11:53 | XMS_ITS | Clinical Summary ---
Author Organization [facility] Address [address] [place] [address] Care Team Providers Care Acid Bath Mixer Name Role Phone Unavailable Primary Care Provider Unavailabl e Allergies No known active allergies Medications * This document contains information received from the source organization and may not represent a complete record from that organization. naproxen (NAPROSYN) 500 MG tablet Take 500 [...] mouth daily. Active carisoprodol (SOMA) 250 MG tabletIndicatio ns:Neck pain Take 1 tablet (250 mg total) by mouth nightly as needed for muscle spasms. 10 tablet 9 Active hydroquinone (ELDOQUIN FORTE 4) 4 % creamIndication s:Rash Apply topically 2 (two) times a day. 28.35 g 3 9 Active buPROPion (WELLBUTRIN XL) 150 MG 24 hr tabletIndicatio ns:Reactive depression Take 2 tablets (300 mg total) by mouth every morning. Swallow whole; do not crush, chew, or divide. 180 tablet 0 Active sertraline (ZOLOFT) 100 MG tabletIndicatio ns:Reactive depression Take 1 tablet (100 mg total) by mouth daily. 90 tablet 0 Active Active Problems Problem Noted Date Diagnosed Date Dysthymia 04/19/2018 Pure hypercholesterolemia 04/19/2018 Achilles tendinitis, left leg 04/19/2018 Immunizations Immunization Administration Dates Next Due Influenza Inactivated/Split Preservative [...] Comments IMAGING BREAST/BX/MAMMO 09/29/2018 THINPREP PAP TEST (FOURTH MATE) WITH HPV REFLEX Routine 04/19/2018 11:44 AM [...] PROCEDURES Edited Re sult - Final * ThinPrep Pap Test (Pharmacy Resident) with HPV Reflex (04/19/2018 11:44 AM EST) [...] has been evaluated with computer assisted technology. Roundhouse Firer/Fireman: [facility] Comment: DMM, [place](AS[place]) [place] screening location: [address] ??[address] Review [facility] Firer/Fireman: DONNA BUENO Comment: GSG, [place](ASCP) CT screening location: [address] ??[address] Comment [facility] Comment: EXPLANATORY NOTE: The Pap [...] Performing Organization Information: ?Site ID: [id number] ?Name: [facility] ?Address: [address] [place] [id number] ?Director: Israel Mckeon MD Carla Vang MD LAB AMB PATH/CYTO ORDERABLES Final Result [facility] [address] [place] [phone] * Hepatitis C Virus (HCV) Antibody (03/24/2018 7:42 AM EDT) Hepatitis C Antibody NON-REACTI VE NON-REACT NADYA [facility] Hepatitis C Antibody (s/co) 0.01 <1.00 [facility] Blood specimen (specimen) Blood specimen / Unknown 03/24/2018 7:42 AM EDT 03/24/2018 7:42 AM EDT Narrative [facility] - 03/25/2018 12:30 AM EDT FASTING:YES FASTING: YES Resulting Agency Comment Performing Organization Information: ?Site ID: [id number] ?Name: [facility] ?Address: [address] [place] [id number] ?Director: Israel Mckeon MD Carla Vang MD LAB BLOOD ORDERABLES Final R esult [facility] [address] [facility] [address], [place] [address] from Last 3 Months or Most Recently Relevant to Health Maintenance Insurance [facility]
--- OUTSIDE RECORDS SUMMARY | 2024-09-13 11:53 | XMS_ITS | Encounter Summary ---
Author Organization [facility] Address [address] [place] [address] Care Team Providers Care Cutter Hand Name Role Phone Carla Vang MD Primary Care Provider [phone] Ariana Harrell MAINSTREAMING FACILITATOR Unavailable [phone] Encounter Details Date Type Department Care Team (Late st Contact Info) Description 12/23/2018 Scanned Document [address] [phone] Ariana Harrell, MAINSTREAMING FACILITATOR [address] [place] [address] Social History Tobacco Use Types Packs/Day Years [...] on filedocumented in this encounter Care Teams Cutter Hand Relationship Specialty Start Date End Date Carla Vang MD [address] [place] [address] PCP - General Internal Medicine 03/15/18 12/24/20 Ariana Harrell, MAINSTREAMING FACILITATOR [address] [place] [address] Senior Contract Specialist Clinical Social Work 12/27/18 03/06/19 documented as of this encounter
--- OUTSIDE RECORDS SUMMARY | 2024-09-13 11:53 | XMS_ITS | Encounter Summary ---
Author Organization [facility] Address [address] [place] [address] Care Team Providers Care Contract Writer Name Role Phone Carla Vang MD Primary Care Provider [phone] Ariana Harrell NEWS DEPARTMENT INTERN Unavailable [phone] Encounter Details Date Type Department Care Team (Late st Contact Info) Description 03/15/2018 Scanned Document [address] [phone] Provider, Generic Social History Tobacco Use Types [...] on filedocumented in this encounter Care Teams Contract Writer Relationship Specialty [place] [address] [place] [address] PCP - General Internal Medicine 03/15/18 12/24/20 Ariana Harrell, NEWS DEPARTMENT INTERN [address] [place] [address] Content Strategy Lead Clinical Social Work 12/27/18 03/06/19 documented as of this encounter
--- OUTSIDE RECORDS SUMMARY | 2024-09-13 11:53 | XMS_ITS | Clinical Summary ---
Author Organization [facility] Address [address] [place] [address] Care Team Providers Care Molder Floor Name Role Phone Unavailable Primary Care Provider [...] Plan of Treatment Not on file Insurance [place] DENTAL
[2024-09-13 12:39] LABS: Alanine Aminotransferase 29 U/L (0-31); Albumin Level 4.4 g/dL (3.5-5.0); Alkaline Phosphatase 75 U/L (39-117); Anion Gap 12 (12-20); Aspartate Amino Transferase 28 U/L (5-31); Bilirubin Total 0.6 mg/dL (0.0-1.0); Blood Urea Nitrogen 10 mg/dL (9-16); Calcium 9.5 mg/dL (8.4-10.2); Carbon Dioxide 27 mmol/L (22-29); Chloride 108 mmol/L (96-108); Cholesterol 220 mg/dL (<200); Estimated Glomerular Filt Rate > 60; Glucose Fasting 88 mg/dL (60-99); HDL Cholesterol 70 mg/dL (>40); LDL Cholesterol Calculated 133 mg/dL (<100); Potassium 4.6 mmol/L (3.3-5.1); Sodium 142 mmol/L (135-145); Total Protein 7.4 g/dL (6.5-8.0); Triglycerides 87 mg/dL (<150)
== END 2024-09-13 10:12 | disposition home or self-care (01) ==
LOC: HO.LAB 10:11
PROVIDERS: PCP Physician Assistant; Visit Provider Physician Assistant
DX: Z01.419 Encounter for gynecological examination (general) (routine) without abnormal findings (principal); N63.10 Unspecified lump in the right breast, unspecified quadrant; E78.2 Mixed hyperlipidemia
CPT/HCPCS: 36415; 80053; 80061; G0101

== ENCOUNTER 2024-09-13 10:19 | Outpatient (AMB) | payer MEDICARE, MEDICAID, SELFPAY ==
--- NOTE | 2024-09-13 10:21 | MHC.OFFVIS ---
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 She is doing well with paving machine operator concerns: vaginal dryness. She reports a non tender right breast lump in 6-7:00 position, no nipple discharge or prior surgeries. Currently not sexually active. STI testing offered; she declined. Attempting to eat a healthy diet with calcium and vitamin D and stays active with exercise-walks a mile a day. Last pap smear; 2022. Last mammogram; 2023. Colonoscopy is UTD. Denies any family history of breast and colon cancer. [facility] Medical History Osteopenia after menopause Colon adenomas Cervical spondylitis Pharyngoesophageal dysphagia DONNIE (generalized anxiety disorder) Leukopenia Depression Menopause Lumbar radiculopathy Hyperlipidemia Fibromyalgia Anxiety Surgical History History of colonoscopy History of back surgery History of tubal ligation Family History Father Lung cancer Plaque psoriasis Mother Lung cancer Paternal Uncle Colon cancer Sister Raynaud's disease Family/Other History of breast cancer Social History Household Members Other:: lives with adult daughter Housing: House Alcohol intake: current Alcohol intake frequency: holidays/special occasions only Patient Tobacco Use Status: Former Tobacco user Tobacco use type: Cigarette e-Cigarette/Vaping Use: Never Used Second Hand Smoke Exposure: No service: No Current occupational status: employed 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 [employer] Current occupational exposures/hazards: No Cognitive needs: No Hearing needs: No Vision needs: No Female Reproductive History Menstrual control method: permanent sterilization Permanent Sterilization: BTL Menopause type: natural Total pregnancies: 2 Full term: 2 Number of Living Children: 2 Date of last pap smear: 07/20/22 (neg pap and hpv) History of abnormal pap smear: Yes (+HPV in late 40's) Date of Mammogram: 09/21/23 (Birad 1) Review of Systems Const All systems reviewed & are unremarkable except as noted in HPI and below Reports as per HPI Eyes Reports no additional complaints ENT Reports no additional complaints Card Reports no additional complaints Resp Reports no additional complaints GI Reports as per HPI and Reports no additional complaints Reports as per HPI Musc Reports no additional complaints Skin/Breast Reports as per HPI Neuro Reports no additional complaints Psych Reports no additional complaints Endo Reports no additional complaints Drew/Lymph Reports no additional complaints Aller/Immun Reports no additional complaints Physical Exam Vital Signs: Last Vital Signs BP 120/78 09/13/24 10:22 BMI result Body Mass Index 23.1 Const General: cooperative, healthy appearing, no acute distress, well developed and alert Orientation/consciousness: patient oriented x3 HEENT Head: Yes normal to inspection Eyes General: appearance normal, both eyes and all related structures Neck Neck: Yes normal visual inspection Thyroid: Thyroid normal Chest Other: right mass-soft, non tender 6-7:00. Chest palpation & inspection: normal inspection of the chest and other (no puckering, dimpling, peau de orange, retraction, discharge, masses) Breast/axilla inspection: normal inspection of the breasts Breast/axilla palpation: normal palpation of the breasts Resp Effort & Inspection: normal respiratory effort GI Inspection: Yes normal to inspection Palpation (GI): Soft to palpation Rectal Exam - Female: deferred General: Yes bladder normal to palpation External Female Exam: normal external appearance and normal appearance of the urethra Speculum Exam - Vagina: normal appearance of the vagina, normal palpation, normal vaginal discharge and vagina atrophic Speculum Exam - Cervix: normal appearance of the cervix and normal palpation Bimanual exam- vagina & uterus: normal bimanual exam, normal palpation, uterine size normal, bladder normal to palpation, normal palpation and non-tender Bimanual Exam- Adnexa, other: no masses Skin General skin exam: no rashes or lesions noted Rashes: no rashes Neuro General: patient oriented x3 Cognition (Neuro): normal cognition Extrem General: Yes normal to inspection Psych Attitude: cooperative Thought process: Normal thought process present Assessment & Plan Assessment & Plan (1) Encounter for well woman exam with routine gynecological exam: Code(s): Z01.419 - Encounter for gynecological examination (general) (routine) without abnormal findings Category: Medical Plan: Discussed: Current recommendations for pap smears per ASCCP guidelines. Breast awareness, periodic self breast exams and yearly mammogram. Maintain a healthy lifestyle, well balanced diet including Calcium 1,200 mg and Vitamin D 600 IU daily, and routine exercise. Contact the office with any postmenopausal bleeding. Patient verbalizes understanding and agrees to the plan of care. She was given opportunity to ask questions and all questions were answered to the best of my ability. RTO in 1 year for annual paving machine operator exam. This note is constructed using voice recognition software. While every effort has been made to ensure accuracy, valve fitter errors may have been included. (2) Lump of right breast: Code(s): N63.10 - Unspecified lump in the right breast, unspecified quadrant Category: Medical Qualifiers: Breast mass location: unspecified quadrant Qualified Code(s): N63.10 - Unspecified lump in the right breast, unspecified quadrant Plan Discussed that weight gain in lost can vary in breast size and create more subcutaneous tissue, area of feel soft consistent with normal breast tissue, possible fat lipoma, other possibilities may include breast cyst or premalignant or malignant findings. She is agreeable for workup with a bilateral diagnostic mammogram and breast ultrasound. Follow up pending test results. The patient expressed understanding and agreement with the plan of care. All of her questions and concerns were addressed to the best of my ability. This note is constructed using voice recognition software. While every effort has been made to ensure accuracy, valve fitter errors may have been included. Orders: Orders US breast RT limited Today N63.10 - Unspecified lump in the right breast, unspecified quadrant MM tomosynthesis diagnostic BI Today N63.10 - Unspecified lump in the right breast, unspecified quadrant Coding Level of Care Code Est Pt Prev Care >65y(17917) Diagnoses Encounter for well woman exam with routine gynecological exam Z01.419 Mass of right breast, unspecified quadrant N63.10 Breast mass location: unspecified quadrant
[2024-09-13 10:22] VITALS: BP 120/78; BMI 23.1
== END 2024-09-13 11:17 | disposition home or self-care (01) ==
LOC: HO.HWS 10:19
PROVIDERS: PCP Physician Assistant; Visit Provider Advanced Practice Midwife
DX: Z01.419 Encounter for gynecological examination (general) (routine) without abnormal findings (principal); N63.10 Unspecified lump in the right breast, unspecified quadrant
CPT/HCPCS: G0101

== ENCOUNTER 2024-10-24 09:14 | Outpatient (REF) | payer MEDICARE, OTHER, SELFPAY ==
--- NOTE | ~2024-10-24 | US_ITS ---
EXAMINATION: MM DIAGNOSTIC DIGITAL BREAST TOMOSYNTHESIS, BILATERAL Limited right breast ultrasound. CLINICAL INFORMATION: Right breast palpable lump 6:00 for 8 months. COMPARISON: Mammography: Comparison is made with relevant prior exams. TECHNIQUE: Digital breast mammography with tomosynthesis is performed in both the craniocaudal and mediolateral oblique views along with computer-aided detection (CAD). FINDINGS: The breasts are heterogeneously dense, which may obscure small masses (ACR BI-RADS breast composition Category c). The marker in the lower central breast without underlying abnormality. There are no significant masses, abnormal calcifications, or other abnormalities. Targeted color Doppler ultrasound scanning from 6-11 o'clock in the area the patient's palpable lump demonstrates normal fibroglandular breast tissue. Results are provided to the patient at time of visit by the technologist. US/US breast RT limited mamm only IMPRESSION: Left: Negative. Right: No mammographic or sonographic abnormal findings to account for the patient's right breast palpable lump. Recommend clinical evaluation and follow-up. ASSESSMENT: BI-RADS BI-RADS 1 - Negative RECOMMENDATION: 1 year F/U This patient's information was entered into a reminder system with a target due date for their next mammogram. Electronically signed by: Nan Harkins DO 10/24/2024 12:34 PM EDT
--- OUTSIDE RECORDS SUMMARY | 2024-10-24 10:08 | XMS_ITS | Clinical Summary ---
Author Organization [facility] Address [address] [place] [address] Care Team Providers Care Basket Hand Weaver Name Role Phone Unavailable Primary Care Provider [...] Bone Density (Females,Ages 65 and older) 11/26/2023 COVID-19 Vaccine ( - 2023- season) 2024 Influenza Vaccine 12/22/2024 03/15/2018 RSV Vaccine 60 years and older and Patients (1 - 1-dose 75+ series) 2033 Hepatitis C Virus Screening Completed 03/24/2018 Hepatitis B Vaccines Aged Out No long er eligible based on patient's age to complete this topic Procedures Procedure Name Priority Date/Time Associated Diagnosis Comments IMAGING BREAST/BX/MAMMO 09/29/2018 THINPREP PAP TEST (HAND CLOTH CUTTER) WITH HPV REFLEX Routine 04/19/2018 11:44 AM [...] sult - Final * ThinPrep Pap Test (Legal Executive Assistant) with HPV Reflex (04/19/2018 11:44 AM EST) [...] has been evaluated with computer assisted technology. Channel Development Director: [facility] Comment: DMM, CT(ASCP) CT screening location: [address] ??[address] Review Channel Development Director: DONNA BUENO Comment: GSG, CT(ASCP) CT screening location: [address] ??[address] Comment [facility] Comment: EXPLANATORY NOTE: [...] Performing Organization Information: ?Site ID: [id number] ?Name: [facility] [employer] ?Address: [address] [place] [phone] ?Director: Israel Mckeon MD Carla Vang MD LAB AMB PATH/CYTO ORDERABLES Final Result [facility] [address] [place] [phone] * Hepatitis C Virus (HCV) Antibody (03/24/2018 7:42 AM EDT) Hepatitis C Antibody NON-REACTI VE NON-REACT NADYA [facility] Hepatitis C Antibody (s/co) 0.01 <1.00 [facility] Blood specimen (specimen) Blood specimen / Unknown 03/24/2018 7:42 AM EDT 03/24/2018 7:42 AM EDT Narrative [facility] - 03/25/2018 12:30 AM EDT FASTING:YES FASTING: YES Resulting Agency Comment Performing Organization Information: ?Site ID: [id number] ?Name: [facility] ?Address: [address] [place] [phone] ?Director: Israel Mckeon MD Carla Vang MD LAB BLOOD ORDERABLES Final R esult [facility] [address] [facility] [address]rd Floor, [place] [address] from Last 3 Months or Most Recently Relevant to Health Maintenance Insurance [facility] * Guarantor: Cassy Rodríguez Account Type Relation to Patient Date of Phone Billing Address [facility] 1960 [address] [employer] [address] [id number] [facility]
== END 2024-10-24 09:15 | disposition home or self-care (01) ==
LOC: HO.MAMMO 09:14
PROVIDERS: PCP Physician Assistant; Visit Provider Advanced Practice Midwife
DX: N63.13 Unspecified lump in the right breast, lower outer quadrant (principal); M79.7 Fibromyalgia; R76.8 Other specified abnormal immunological findings in serum
CPT/HCPCS: 76642; 77062; 77066; 99212

== ENCOUNTER → 2024-10-24 09:30 | Outpatient (BNV) | payer MEDICARE, SELFPAY | PROVIDERS: PCP Physician Assistant; Visit Provider Internal Medicine | DX: N63.13 Unspecified lump in the right breast, lower outer quadrant (principal); N63.14 Unspecified lump in the right breast, lower inner quadrant | CPT/HCPCS: 76642; 77066; G0279 ==

== ENCOUNTER 2024-10-24 11:14 | Outpatient (AMB) | payer MEDICARE, MEDICAID, SELFPAY ==
--- NOTE | 2024-10-24 11:22 | MHC.OFFVIS ---
Vital Signs 10/24/24 11:29 Height 5 ft 6 in Weight 146 lb 2.664 oz BMI 23.6 BP 120/80 Blood Pressure Location Lt brachial Position Sitting Pulse 82 Pulse Source Pulse Oximeter Pulse Oximetry (%) 98 Oxygen Delivery Method Room Air Intake Visit Reasons: PETTY +ve Intake Note: Patient presents for PETTY +ve follow up. Allergies No Known Allergies Allergy (Verified 10/24/24 11:27) Medication List - Last Reconciled 10/24/24 by Janelle Shrestha MD acetaminophen ER (Tylenol 8 Hour) 650 mg PO Q12H 30 days atorvastatin 10 mg PO DAILY azelastine 1 spray intranasal BID 30 days bupropion HCl SR 200 mg PO QAM dextroamphetamine-amphetamine 10 mg (Adderall) 10 mg PO BID lorazepam 1 mg PO BID methocarbamol 750 mg PO Q8H PRN 10 days naproxen 375 mg PO BID PRN pantoprazole (Protonix) 20 mg PO DAILY 90 days pregabalin 25 mg PO BID sertraline 50 mg PO DAILY HPI Comments Details: Patient is a 63-year-old female with hyperlipidemia, cervical disc disease with myelopathy, lumbar degenerative disc disease status post laminectomy complicated by post laminectomy syndrome, major depressive disorder/anxiety who is here today for follow up of fibromyalgia in the setting of positive PETTY Interval History: Patient last seen 07/12/24 with me. At that time she was complaining of neck and back pain associated with bilateral lower extremity sciatica. Started patient on pregabalin Says she does not feel that pregabalin has been helpful. Requesting to try Savella Rheumatologic History: Initial history: This is 62-year-old female who presents for evaluation for possible nflammatory arthritis given her multiple joint pain and highly positive PETTY. Her PCP referred her for a positive PETTY 1:640. Patient states that over the last 4 years she has been having diffuse joint pain especially in her neck, all over her back, and also intermittent pain swelling and stiffness of her hands. She has generalized morning stiffness that lasts 2-3 hours. She showed me a picture of swelling of her left ulnar styloid, this was treated with prednisone by her PCP. She was evaluated by Dr. Torres in 2021 and further labs were ordered in the context of a positive PETTY but patient did not follow-up as the plumbing inspector was leaving the practice. Patient states that whenever her wrist and hands hurt, she took Tylenol, meloxicam and ibuprofen 800 mg daily all with minimal relief. Tylenol was most helpful. She denies any skin rashes, dry eyes, dry mouth, photosensitivity, difficulty swallowing, and hair loss. She had a colonoscopy in the past which showed polyps and diverticulosis. She denies any history of DVT/ PE, pluritis and pericarditis, fevers and headaches. She denies unexplained weight loss. --Denies uveitis. She has a sister with Raynaud's, another sister with ulcerative colitis. Father had plaque psoriasis. Three of her sisters have thyroid disease. --she describes a hx recurring oral ulcers - none on PE Current Rheumatology Medication(s): Pregabalin 25mg bid [facility] Medical History (Updated 09/13/24 @ 12:27 by Kassandra Alexander CNM) Lump of right breast Painful lumpy right breast Osteopenia after menopause Colon adenomas Cervical spondylitis Pharyngoesophageal dysphagia DONNIE (generalized anxiety disorder) Leukopenia Depression Menopause Lumbar radiculopathy Hyperlipidemia Fibromyalgia Anxiety Surgical History History of colonoscopy History of back surgery History of tubal ligation Family History Father Lung cancer Plaque psoriasis Mother Lung cancer Paternal Uncle Colon cancer Sister Raynaud's disease Family/Other History of breast cancer Social History Household Members Other:: lives with adult daughter Housing: House Alcohol intake: current Alcohol intake frequency: holidays/special occasions only Patient Tobacco Use Status: Former Tobacco user Tobacco use type: Cigarette e-Cigarette/Vaping Use: Never Used Second Hand Smoke Exposure: No service: No Current occupational status: employed 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 Current occupational exposures/hazards: No Cognitive needs: No Hearing needs: No Vision needs: No Review of Systems Const Details: Review of Systems Constitutional: Denies fever, chills, weight loss ENT: Denies vision changes, eye pain or eye redness, dental caries, dry mouth GI: Denies nausea, vomiting, diarrhea, abdominal pain, change in BM Pulm: Denies SOB, ROWE, hemoptysis, wheezing Cards: Denies chest pain, palpitations Skin: Denies Raynaud's, rash, nail changes, photosensitivity, CLOTH DOUBLING MACHINE OPERATOR: Denies headaches, weakness, paresthesias, recurrent falls MSK: as per HPI All other systems reviewed and are unremarkable except noted above Physical Exam Vital Signs: Last Vital Signs Pulse 82 10/24/24 11:29 BP 120/80 10/24/24 11:29 Pulse Ox 98 10/24/24 11:29 Oxygen Delivery Method Room Air 10/24/24 11:29 BMI result Body Mass Index 23.6 Vital signs reviewed Physical Examination CONSTITUITIONAL Patient alert and cooperative. Well appearing and in no apparent painful distress HEENT Conjunctiva and sclera clear. ?Pupils equal round and reactive to light. ?No lymphadenopathy. ? CHEST/RESPIRATORY SYSTEM Normal respiratory effort and able to speak in complete sentences. ?Clear to auscultation bilaterally. ?No crackles, rales, rhonchi, wheezes heard. CARDIAC SYSTEM Regular rate and rhythm. ?S1 and S2 heard no murmurs. ?Radial pulses intact bilaterally MSK Hands: ?Good nurses superintendent strength bilaterally. No deformities noted. ?No synovitis noted to the MCPs, PIPs or DIPs. ?No tenderness to palpation of these joints. Wrists: ?Full range of motion at the wrists without pain. ?No tenderness to palpation or synovitis noted to the wrists. Elbows: Full range of motion without pain. No tenderness, weakness, swelling, increased warmth or erythema. Shoulders: Full range of motion without pain. No tenderness, weakness, swelling, increased warmth or erythema. Hips: Full range of motion without pain. Hip bursa: No tenderness to palpation Knees: ?Full range of motion. ?No tenderness, swelling, increased warmth or erythema.?No effusion or crepitations Ankles: Full range of motion. ?No tenderness, swelling, increased warmth or erythema.? Feet: ?Negative squeeze test. ?No tenderness to palpation or swelling of the MTPs. Tender points: Tenderness to palpation of the bilateral trapezius, supraspinatus, and bilateral suboccipital muscle insertions SKIN Skin intact without rashes. Results Reviewed Results Reviewed: Laboratory Tests 07/20/23 11/09/23 07/07/24 10:04 13:02 12:52 WBC 3.6 L RBC 3.92 L Hgb 12.4 Hct 36.4 L Plt Count 277 ESR 19 Sodium 138 Potassium 4.6 Chloride 104 Carbon Dioxide 27 BUN 10 Creatinine 0.81 AST 29 ALT 39 H Alkaline Phosphatase 67 C-Reactive Protein < 0.04 Rheumatoid Factor < 13.0 Cycl Citrul Peptide IgG <16 PETTY Screen POSITIVE A PETTY Pattern Nuclear, Homogeneous A Thyroglobulin Antibody 4 H Complement C3 47 L 118 Complement C4 6 L 14 L HLA-B27 Negative XR Bilateral Hands/Wrists 11/09/23 FINDINGS: RIGHT HAND: Bones are diffusely demineralized. Moderate degenerative changes in the first carpometacarpal joint with joint space narrowing and hypertrophic change. Alignment maintained. LEFT HAND: Bones are diffusely demineralized. Moderate degenerative changes in the first carpometacarpal joint with joint space narrowing and hypertrophic change. Alignment maintained. Assessment & Plan Assessment & Plan (1) Fibromyalgia: Code(s): M79.7 - Fibromyalgia Category: Medical Plan: #Fibromyalgia Patient is a 63-year-old female with fibromyalgia. Evidence of fibromyalgia today on examination without any evidence of underlying inflammatory arthritis. No evidence of synovitis on examination of her MCPs, PIPs DIPs, elbows or knees. Patient requesting to try Savella. Recommended that she would need to stop sertraline and bupropion prior to starting this medication. She states she will reach out to her psychiatrist/psychologist Plan - Savella (milnacipran) 12.5 mg once daily on day 1, then 12.5 mg twice daily on days 2 to 3, 25 mg twice daily on days 4 to 7, then to usual dosage of 50 mg twice daily thereafter - RTC 6 months (2) PETTY positive: Code(s): R76.8 - Other specified abnormal immunological findings in serum Category: Medical Plan: #Positive PETTY Patient with positive PETTY in the setting of polyarthralgias. No evidence of synovitis on examination and patient does not have any other signs or symptoms concerning for lupus, scleroderma or Sjogren's. Her positive PETTY also in accompanied by a positive TPO antibody which can explain the positive PETTY. Her TSH was normal about 1 year ago. She does not have any symptoms concerning for hypo or hyperthyroidism. She may have some element of undifferentiated connective tissue disease given her low complements however patient would like to try lifestyle changes and would not like to try Plaquenil at this time Plan I spent 20 minutes reviewing the record and labs, taking a history, examining the patient, discussing the treatment plan and documenting in the medical record Medications: New milnacipran (Savella) PO PER PKG DIR 55 ea 0RF Discontinued pregabalin Discontinued Reason: Doctor's Order 25 mg PO BID 180 caps 1RF M79.7 - Fibromyalgia Coding Level of Care Code Est Pt Level 3 (15664) Diagnoses Fibromyalgia M79.7 PETTY positive R76.8
[2024-10-24 11:29] VITALS: BP 120/80; PULSE 82; O2SAT 98; BMI 23.6
== END 2024-10-24 11:46 | disposition home or self-care (01) ==
LOC: HO.RHE 11:15
PROVIDERS: PCP Physician Assistant; Visit Provider Student in an Organized Health Care Education/Training Program
DX: M79.7 Fibromyalgia (principal); R76.8 Other specified abnormal immunological findings in serum
CPT/HCPCS: 99213

== ENCOUNTER 2024-11-07 11:22 | Outpatient (AMB) | payer MEDICARE, MEDICAID, SELFPAY ==
--- NOTE | 2024-11-07 11:23 | MHC.OFFVIS ---
Intake Visit Reasons: TV mammogram results Intake Note: cell #[phone] Administrative Assistant Receptionist: Administrative Assistant Receptionist Present Allergies No Known Allergies Allergy (Verified 10/24/24 11:27) Is last menstrual period known: Yes HPI Comments Details: Tele Health Visit Total time I personally spent on visit and management today: 15 minutes. Time spent included review of pertinent office notes in the electronic health record; review of laboratory and imaging results; review of personal family medical history; discussing diagnosis and plan of care with the patient; documenting the encounter in the EMR. Patient presents to discuss: Ultrasound and mammogram results. History of right breast lump in occasional breast tenderness. [facility] Medical History Lump of right breast Painful lumpy right breast Osteopenia after menopause Colon adenomas Cervical spondylitis Pharyngoesophageal dysphagia DONNIE (generalized anxiety disorder) Leukopenia Depression Menopause Lumbar radiculopathy Hyperlipidemia Fibromyalgia Anxiety Surgical History History of colonoscopy History of back surgery History of tubal ligation Family History Father Lung cancer Plaque psoriasis Mother Lung cancer Paternal Uncle Colon cancer Sister Raynaud's disease Family/Other History of breast cancer Social History Household Members Other:: lives with adult daughter Housing: House Alcohol intake: current Alcohol intake frequency: holidays/special occasions only Patient Tobacco Use Status: Former Tobacco user Tobacco use type: Cigarette e-Cigarette/Vaping Use: Never Used Second Hand Smoke Exposure: No service: No Current occupational status: employed 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 [employer] Current occupational exposures/hazards: No Cognitive needs: No Hearing needs: No Vision needs: No Review of Systems Const All systems reviewed & are unremarkable except as noted in HPI and below Endo Reports no additional complaints Physical Exam Const General: cooperative, healthy appearing and no acute distress Psych Appearance: well kempt Attitude: cooperative Thought process: Normal thought process present Telehealth Telehealth Telehealth Platform: [employer] Location of provider rendering services: practice address Location of patient: address on file Patient Identification confirmed using: Name, : Yes Telehealth method: video Patient verbally consented to treatment: Yes Patient verbally consented to billing insurance company: Yes Patient informed of any privacy concerns related to visit: Yes Results Reviewed Results Reviewed: [facility] [address] [place] [address] Ultrasound Report Signed Patient: Cassy Rodríguez MR#: [id number] : 1960 Acct:[id number] Age/Sex: 63 / F ADM Date: 10/24/24 Loc: HO.MAMMO Attending Dr: Kassandra Alexander CNM Ordering Physician: Kassandra Alexander CNM Date of Service: 10/24/24 Procedure(s): US breast RT limited mamm only Accession Number(s): [id number] cc: Cecil Gan PA-C; Kassandra Alexander CNM~ EXAMINATION: MM DIAGNOSTIC DIGITAL BREAST TOMOSYNTHESIS, BILATERAL Limited right breast ultrasound. CLINICAL INFORMATION: Right breast palpable lump 6:00 for 8 months. COMPARISON: Mammography: Comparison is made with relevant prior exams. TECHNIQUE: Digital breast mammography with tomosynthesis is performed in both the craniocaudal and mediolateral oblique views along with computer-aided detection (CAD). FINDINGS: The breasts are heterogeneously dense, which may obscure small masses (ACR BI-RADS breast composition Category c). The marker in the lower central breast without underlying abnormality. There are no significant masses, abnormal calcifications, or other abnormalities. Targeted color Doppler ultrasound scanning from 6-11 o'clock in the area the patient's palpable lump demonstrates normal fibroglandular breast tissue. Results are provided to the patient at time of visit by the technologist. US/US breast RT limited mamm only IMPRESSION: Left: Negative. Right: No mammographic or sonographic abnormal findings to account for the patient's right breast palpable lump. Recommend clinical evaluation and follow-up. ASSESSMENT: BI-RADS BI-RADS 1 - Negative RECOMMENDATION: 1 year F/U This patient's information was entered into a reminder system with a target due date for their next mammogram. Electronically signed by: Nan Harkins DO 10/24/2024 12:34 PM EDT Dictated By: Nan Harkins DO Signed By: <Electronically signed by Nan Harkins DO in OV> 10/24/24 1234 DD/ 1000 TD/TT: 10/24/24 1020 Lighting Fixtures Decorator: Assessment & Plan Assessment & Plan (1) Lump of right breast: Code(s): N63.10 - Unspecified lump in the right breast, unspecified quadrant Category: Medical Qualifiers: Breast mass location: unspecified quadrant Qualified Code(s): N63.10 - Unspecified lump in the right breast, unspecified quadrant Plan Discussed: Ultrasound/mammogram findings- IMPRESSION: Left: Negative. Right: No mammographic or sonographic abnormal findings to account for the patient's right breast palpable lump. Recommend clinical evaluation and follow-up. History of breast lump, discomfort, and dense breast tissue, recommended breast consult with surgeon, referral placed. The patient expressed understanding and agreement with the plan of care. All of her questions and concerns were addressed to the best of my ability. This note is constructed using voice recognition software. While every effort has been made to ensure accuracy, yard warehouse worker errors may have been included. Orders: Referrals Breast Surgery Referral N63.10 - Unspecified lump in the right breast, unspecified quadrant Coding Level of Care Code Tele Est Pt Level 3 ([address]3901) Diagnoses Mass of right breast, unspecified quadrant N63.10 Breast mass location: unspecified quadrant
--- OUTSIDE RECORDS SUMMARY | 2024-11-07 13:01 | XMS_ITS | Clinical Summary ---
Author Organization [facility] Address [address] [place] [address] Care Team Providers Care Run Lead Name Role Phone Unavailable Primary Care Provider [...] Comments IMAGING BREAST/BX/MAMMO 09/29/2018 THINPREP PAP TEST (STUDENT DEVELOPMENT ADVISOR) WITH HPV REFLEX Routine 04/19/2018 11:44 AM [...] sult - Final * ThinPrep Pap Test (Industrial Education Teacher) with HPV Reflex (04/19/2018 11:44 AM EST) Clinical Information None given [facility] LMP: NONE GIVEN [facility] Previous PAP: NONE GIVEN [facility] Previous Biopsy NONE GIVEN [facility] Source: Cervix [facility] Statement of Adequacy: [facility] Comment:SATISFACTORY FOR YULIAAN LUATION Interpretation/Resu lt: [facility] Comment: Negative for intraepithelial lesion or malignancy. Atrophic pattern; predominantly parabasal cells Comment: [facility] Comment: This Pap test has been evaluated with computer assisted technology. Electronic Scale Tester: [facility] Comment: DMM, CT(ASCP) CT screening location: [address] ??[address] Review Electronic Scale Tester: DONNA BUENO Comment: GSG, CT(ASCP) CT screening location: [address] ??[address] Comment [facility] Comment: EXPLANATORY NOTE: [...] Performing Organization Information: ?Site ID: [id number] ?Name: [facility] ?Address: [address] [place] [phone] ?Director: Israel Mckeon MD Carla Vang MD LAB AMB PATH/CYTO ORDERABLES Final Result [facility] [address] [place] [id number] * Hepatitis C Virus (HCV) Antibody (03/24/2018 7:42 AM EDT) Hepatitis C Antibody NON-REACTI VE NON-REACT NADYA [facility] Hepatitis C Antibody (s/co) 0.01 <1.00 [facility] Blood specimen (specimen) Blood specimen / Unknown 03/24/2018 7:42 AM EDT 03/24/2018 7:42 AM EDT Narrative [facility] - 03/25/2018 12:30 AM EDT FASTING:YES FASTING: YES Resulting Agency Comment Performing Organization Information: ?Site ID: [id number] ?Name: [facility] ?Address: [address] [place] [phone] ?Director: Israel Mckeon MD Carla Vang MD LAB BLOOD ORDERABLES Final R esult [facility] [address] [facility] 3rd [address], [place] [address] from Last 3 Months or Most Recently Relevant to Health Maintenance Insurance [facility]
== END 2024-11-07 13:05 | disposition home or self-care (01) ==
LOC: HO.HWS 11:22
PROVIDERS: PCP Physician Assistant; Visit Provider Advanced Practice Midwife
DX: N63.10 Unspecified lump in the right breast, unspecified quadrant (principal)
CPT/HCPCS: 99213

== ENCOUNTER → 2024-11-07 11:22 | Outpatient (BNVA) | payer MEDICARE, OTHER, SELFPAY | PROVIDERS: PCP Physician Assistant; Visit Provider Advanced Practice Midwife | DX: Z13.89 Encounter for screening for other disorder (principal) ==

== ENCOUNTER 2024-12-01 09:38 | Outpatient (AMB) | payer MEDICARE, MEDICAID, SELFPAY ==
--- NOTE | 2024-12-01 09:40 | A.OFFVIS_ITS ---
Vital Signs 3 12/01/24 09:50 Height 5 ft 6 in Weight 147 lb BMI 23.7 BP 138/73 Blood Pressure Location Lt brachial Position Sitting Pulse 70 Intake Visit Reasons: Unspecified lump in the right breast Intake Note: Patient is seen in office for evaluation of a lump in the left breast. Pt c/o: had a lump on the left breast and redness, swollen, started Wednesday, currently is sore, redness has decrease, lump is smaller, no prior breast concerns or surgeries mm/us:10/24/24 Touch Up Painter Hand Required: No Paper Guillotine Operator: Paper Guillotine Operator Present (Angi VICTOR) Accompanied by: Self / Same As Patient Allergies No Known Allergies Allergy (Verified 12/01/24 09:51) Medication List - Last Reconciled 12/01/24 by Jesse Colvin MD acetaminophen ER (Tylenol 8 Hour) 650 mg PO Q12H 30 days atorvastatin 10 mg PO DAILY azelastine 1 spray intranasal BID 30 days dextroamphetamine-amphetamine 10 mg (Adderall) 10 mg PO BID doxycycline hyclate 100 mg PO BID lorazepam 1 mg PO BID methocarbamol 750 mg PO Q8H PRN 10 days milnacipran (Savella) PO PER PKG DIR naproxen 375 mg PO BID PRN pantoprazole (Protonix) 20 mg PO DAILY 90 days HPI Comments Details: 64-year-old female patient presenting for evaluation of a right breast lump noted on recent physical examination. In addition over the past week she developed some redness in the left breast around the region of the nipple- areolar complex. She noted a spot which was somewhat harder in the 1 o'clock position and subsequently applied triple antibiotic ointment to the skin. Since this time she feels redness has improved. She denies any fever or chills. She denies any previous problems with the breast and denies any previous breast surgery. Her family history is significant only for a 1st cousin with breast cancer who at the age of 40. The patient is , menarche at 10, menopause at 52. She has no history of hormone replacement therapy. She has never undergone nor has her family undergone genetic testing. There is no family history of ovarian cancer. Both her mother and father of lung cancer. Her mother was adopted therefore there was no family history from her mother's side. A mammogram and ultrasound performed on 10/24/2024 revealed no mammographic or sonographic evidence of malignancy in either breast (BI-RADS 1). [facility] Medical History Lump of right breast Painful lumpy right breast Osteopenia after menopause Colon adenomas Cervical spondylitis Pharyngoesophageal dysphagia DONNIE (generalized anxiety disorder) Leukopenia Depression Menopause Lumbar radiculopathy Hyperlipidemia Fibromyalgia Anxiety Surgical History History of colonoscopy History of back surgery History of tubal ligation Family History Father Lung cancer Plaque psoriasis Mother Lung cancer Paternal Uncle Colon cancer Sister Raynaud's disease Family/Other History of breast cancer Paternal Aunt No problems noted. 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 [employer] Current occupational exposures/hazards: No Cognitive needs: No Hearing needs: No Vision needs: No Female Reproductive History Menstrual Age of Menarche: 11 Age of menopause: 52 Total pregnancies: 2 Number of Living Children: 2 Physical Exam Vital Signs: Last Vital Signs Pulse 70 12/01/24 09:50 BP 138/73 12/01/24 09:50 BMI result Body Mass Index 23.7 Const General: cooperative and no acute distress Nutritional Appearance: well nourished Orientation/consciousness: patient oriented x3 Limitations: no limitations HEENT Head: Yes normocephalic and Yes atraumatic Ears: hearing grossly normal bilaterally Chest Other: Left breast: Area of redness in a thomas-shaped around the nipple and areola with no palpable underlying mass, no nipple retraction, no nipple discharge, no palpable mass, no enlarged lymph nodes. Right breast: No skin change, no nipple retraction, no nipple discharge, soft tissue thickening in the 09:00 location mobile within the breast tissue most consistent with thickened breast tissue with no discrete mass appreciated, no enlarged lymph nodes Chest/axillae images: 2 1. Left breast: Area of light erythema suggestive of a underlying cellulitis. Resp Effort & Inspection: normal respiratory effort, no audible wheezes, no cough and no respiratory distress Cardio Jugular venous distension: no JVD GI Inspection: Yes normal to inspection Skin Other: Warm, dry, no rash Neuro General: patient oriented x3 Extrem General: Yes no clubbing, cyanosis or edema Assessment & Plan Assessment & Plan (1) Cellulitis of left breast: Code(s): N61.0 - Mastitis without abscess Category: Medical (2) Lump of right breast: Code(s): N63.10 - Unspecified lump in the right breast, unspecified quadrant Category: Medical Qualifiers: Breast mass location: unspecified quadrant Qualified Code(s): N63.10 - Unspecified lump in the right breast, unspecified quadrant Plan 64-year-old female patient presenting with a palpable lump noted in the right breast on a recent physical examination and a new area of erythema in the left breast around the nipple-areolar complex. No suspicious palpable masses are noted on either side. Review of the recent mammogram and ultrasound performed on 10/24/2024 revealed no suspicious findings in either breast (BI-RADS 1). I recommended a short course of oral antibiotics for the cellulitis of the left breast and asked her to return in several weeks for follow-up examination. She expressed understanding and agrees with the plan. Medications: New 2 doxycycline hyclate 100 mg PO BID 20 tabs 0RF N61.0 - Mastitis without abscess Coding Level of Care Code New Pt Level 4 (75404) Diagnoses Cellulitis of left breast N61.0 Mass of right breast, unspecified quadrant N63.10 Breast mass location: unspecified quadrant
[2024-12-01 09:50] VITALS: BP 138/73; PULSE 70; BMI 23.7
--- OUTSIDE RECORDS SUMMARY | 2024-12-01 09:56 | XMS_ITS | Clinical Summary ---
Author Organization [facility] Address [address] [place] [address] Care Team Providers Care Sample Checker Name Role Phone Unavailable Primary Care Provider [...] 62 02/09/2019 2:57 PM EDT Temperature 36.7 C (98 F) 01/31/2019 9:52 AM EDT Respiratory Rate 16 02/09/2019 2:57 PM EDT Oxygen Saturation 92% 02/12/2018 1:49 PM EDT Inhaled Oxygen Concentration - - Weight 66.2 kg (146 lb) 02/09/2019 2:57 PM EDT Height 167.6 cm (5' 6 ) 02/09/2019 2:57 PM EDT Body Mass Index 23.57 02/09/2019 2:57 PM EDT Plan of Treatment Health Maintenance Due Date Last Done Comments DTaP/Tdap/Td Vaccines (1 - Tdap) 1977 Colonoscopy 2008 Pneumococcal Vaccines 50+ (1 of 1 - PCV) 2008 Zoster (Shingles) Vaccine (1 of 2) 2008 Mammogram 09/30/2019 09/29/2018, 08/23 (Previously Completed), 09/15/2018, Additional history exists DXA Bone Density (Females,Ages 65 and older) 11/26/2023 COVID-19 Vaccine (2023- season) 2024 Influenza Vaccine 12/22/2024 03/15/2018 RSV Vaccine 60 years and older and Patients (1 - 1-dose 75+ series) 2033 Hepatitis C Virus Screening Completed 03/24/2018 Hepatitis B Vaccines Aged Out No long er eligible based on patient's age to complete this topic Procedures Procedure Name Priority Date/Time Associated Diagnosis Comments IMAGING BREAST/BX/MAMMO 09/29/2018 HEPATITIS C VIRUS (HCV) ANTIBODY Routine 03/24/2018 7:42 AM EDT Reactive depression Breast cancer screening Need for hepatitis C screening test from Last 3 Months or Most Recently Relevant to Health Maintenance Results * IMAGING BREAST/BX/MAMMO (09/29/2018) Anatomical Region Laterality Modality Other Narrative 09/29/2018 Ordered by an unspecified provider. us Generic Provider IMG LEGACY PROCEDURES Edited Re sult - Final * Hepatitis C Virus (HCV) Antibody (03/24/2018 7:42 AM EDT) Hepatitis C Antibody NON-REACTI VE NON-REACT NADYA [facility] Hepatitis C Antibody (s/co) 0.01 <1.00 [facility] Blood specimen (specimen) Blood specimen / Unknown 03/24/2018 7:42 AM EDT 03/24/2018 7:42 AM EDT Narrative [facility] - 03/25/2018 12:30 AM EDT FASTING:YES FASTING: YES Resulting Agency Comment Performing Organization Information: Site ID: [id number] Name: [facility] Address: [address] [place] [address], [place] [address] Director: Israel Mckeon MD Carla Vang MD LAB BLOOD ORDERABLES Final R esult [facility] [address], [place] [address] from Last 3 Months or Most Recently Relevant to Health Maintenance Insurance [facility]
--- OUTSIDE RECORDS SUMMARY | 2024-12-01 09:56 | XMS_ITS | Clinical Summary ---
Author Organization [facility] Address [address] [place] [address] Care Team Providers Care Workplace Rehabilitation Officer Name Role Phone Unavailable Primary Care Provider [...] Plan of Treatment Not on file Insurance [place] MEDICA[place] DENTAL HEALTH SAFETY NET DENTAL
--- OUTSIDE RECORDS SUMMARY | 2024-12-01 09:57 | XMS_ITS | Data Portability ---
Author Organization [facility] [place], [facility] Address [address] [place] [address] Assessment No assessment recorded. Plan of Treatment Reminders Order Date Submit Date Provider Last Modified By Organization Details Last Modified Time Details Appointments None recorded. Lab None recorded. Referral None recorded. Procedures None recorded. Surgeries None recorded. Imaging None recorded. Medication Orders azithromyc in 250 mg tablet 2017 018 [id number], [address], [place], [id number], 8 18:48:10 Tessalon Perles 100 mg capsule 2017 018 INTERFACE [facility] #[id number], [address], [place], [id number], 8 18:48:09 Patient TargetsNo targets recorded. Patient [...] blood by Pulse oximetry Body temperature Systolic And Diastolic Provider Name and Address Organization Details Last Updated DateTime 8 28925.7 8 g 94 /min 97 % 97 % 98.2 [degF] 112/82 mm[Hg] Holden Read [facility] 8 18:21:32 Social History Question Answer Notes LastModified by Organizat ion Details LastModified Time Tobacco Smoking Status Never Smoker Holden Read null, [facility] 07/16/2017 18:20:27 What Was The Date Of Your Most Recent Tobacco Screening? 07/16/2017 Information n ot available 12/17/2018 Sex: Unknown Functional Status None recorded. Mental Status None recorded. Family History Relationship Description Onset Age of this Age Resolved Age Notes LastModified by Organization Details LastModified Time Father No current problems or disability [email or web address] Not available 06/25 18:20:30 Mother No current problems or disability [email or web address] Not available 06/25 18:20:30 Medical History No medical history recorded. Gynecological HistoryNo gynecological history recorded. Obstetrics History GPAL:G 0 P 0 0 0 0 Past Encounters Encounter ID Performer Location Encounter Start Date Encounter Closed Date Diagnosis/Indication Diagnosis SNOMED-CT Code Diagnosis ICD10 Code Diagnosis Note [id number] ELIZABETH Danielson [facility] [address] [place] [address] 07/16/2017 18:02:10 07/16/2017 18:57:07 Community acquired pneumonia [id number] J18.9 -Rest, to prevent dehydratio n, drink [...] Recorded Advance Directives Directive None Recorded Payers Insurance Date Sequence Insurance Name Policy Number Policy [...] fever, SOB, wheezing. ELIZABETH Danielson [address], [place], [address], [facility] 07/16/2017 18:52:35 OBGyn Episode No OBEpisode recorded.
== END 2024-12-01 10:06 | disposition home or self-care (01) ==
LOC: HO.HGS 09:39
PROVIDERS: PCP Physician Assistant; Visit Provider Surgery
DX: N61.0 Mastitis without abscess (principal); N63.10 Unspecified lump in the right breast, unspecified quadrant
CPT/HCPCS: 99204

== ENCOUNTER → 2024-12-01 09:38 | Outpatient (BNVA) | payer MEDICARE, OTHER, SELFPAY | PROVIDERS: PCP Physician Assistant; Visit Provider Surgery | DX: N61.0 Mastitis without abscess (principal); N63.10 Unspecified lump in the right breast, unspecified quadrant; Z79.2 Long term (current) use of antibiotics; Z79.899 Other long term (current) drug therapy | CPT/HCPCS: 99202 ==

== ENCOUNTER 2024-12-21 11:25 | Outpatient (AMB) | payer MEDICARE, MEDICAID, SELFPAY ==
--- NOTE | 2024-12-21 11:26 | A.OFFVIS_ITS ---
Vital Signs 12/21/24 11:33 Height 5 ft 6 in Weight 148 lb 2 oz BMI 23.9 BP 126/75 Blood Pressure Location Lt brachial Position Sitting Pulse 78 Intake Visit Reasons: 2wk fuv Unspecified lump in the left breast Intake Note: Patient is seen in office for 2wk follow up, Lt breast cellulitis. Patient c/o: did not start taking the antibiotics right away, started this week on Wednesday, slight improvement, feels the same, discoloration mm:10/24/24 Ceramic Capacitor Processor Required: No Seating And Mobility Technologist: Seating And Mobility Technologist Present Accompanied by: Self / Same As Patient Allergies No Known Allergies Allergy (Verified 12/01/24 09:51) Medication List - Last Reconciled 12/21/24 by Jesse Colvin MD acetaminophen ER (Tylenol 8 Hour) 650 mg PO Q12H 30 days atorvastatin 10 mg PO DAILY azelastine 1 spray intranasal BID 30 days dextroamphetamine-amphetamine 10 mg (Adderall) 10 mg PO BID doxycycline hyclate 100 mg PO BID lorazepam 1 mg PO BID methocarbamol 750 mg PO Q8H PRN 10 days milnacipran (Savella) PO PER PKG DIR naproxen 375 mg PO BID PRN pantoprazole (Protonix) 20 mg PO DAILY 90 days HPI Comments Details: 64-year-old female patient returning for re-evaluation of changes in the left breast. She was initially seen 2 weeks ago for a lump in the left and right breast. She was noted to have a cellulitis in the left breast around the areola and started on oral antibiotics. She reports taking only 1 dose of the antibiotic were then felt she did not needed any further. After going to [place] she did not notice a bluish discoloration in the same location and started taking the antibiotic once again on Wednesday this week. She is taking approximately 4 days of the antibiotic. She denies any pain but does feel an area of thickening in the lower inner quadrant of the left breast. She denies any new symptoms in the right breast. Her family history is significant only for a 1st cousin with breast cancer who at the age of 40. The patient is , menarche at 10, menopause at 52. She has no history of hormone replacement therapy. She has never undergone nor has her family undergone genetic testing. There is no family history of ovarian cancer. Both her mother and father of lung cancer. Her mother was adopted therefore there was no family history from her mother's side. A mammogram and ultrasound performed on 10/24/2024 revealed no mammographic or sonographic evidence of malignancy in either breast (BI-RADS 1). [facility] Medical History Lump of right breast Painful lumpy right breast Osteopenia after menopause Colon adenomas Cervical spondylitis Pharyngoesophageal dysphagia DONNIE (generalized anxiety disorder) Leukopenia Depression Menopause Lumbar radiculopathy Hyperlipidemia Fibromyalgia Anxiety Surgical History History of colonoscopy History of back surgery History of tubal ligation Family History Father Lung cancer Plaque psoriasis Mother Lung cancer Paternal Uncle Colon cancer Sister Raynaud's disease Family/Other History of breast cancer Paternal Aunt No problems noted. 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 [employer] Current occupational exposures/hazards: No Cognitive needs: No Hearing needs: No Vision needs: No Female Reproductive History Menstrual Age of Menarche: 11 Review of Systems Const All systems reviewed & are unremarkable except as noted in HPI and below Physical Exam Const General: cooperative and no acute distress Nutritional Appearance: well nourished Orientation/consciousness: patient oriented x3 Limitations: no limitations HEENT Head: Yes normocephalic and Yes atraumatic Ears: hearing grossly normal bilaterally Chest Other: Left breast: Area of redness in the central portion of the breast is much improved with no evidence of cellulitis at this time. There is an area of fibrocystic change in the lower inner quadrant which is minimally tender to palpation. No discrete masses noted within this location. No other discrete mass, skin change, nipple discharge or enlarged lymph nodes are appreciated. Right breast: Exam deferred Resp Effort & Inspection: normal respiratory effort, no audible wheezes, no cough and no respiratory distress Cardio Jugular venous distension: no JVD GI Inspection: Yes normal to inspection Skin Other: Warm, dry, no rash Neuro General: patient oriented x3 Extrem General: Yes no clubbing, cyanosis or edema Assessment & Plan Assessment & Plan (1) Cellulitis of left breast: Code(s): N61.0 - Mastitis without abscess Category: Medical Plan 64-year-old female patient returning for re-evaluation of left breast cellulitis. This has now much improved with no further redness. Examination reveals an area of fibrocystic change in the lower inner quadrant but no discrete masses noted throughout the breast. I recommended she continue the antibiotic until completed. She should resume normal annual screening follow-up as needed. Coding Level of Care Code Est Pt Level 3 (74780) Diagnoses Cellulitis of left breast N61.0
[2024-12-21 11:33] VITALS: BP 126/75; PULSE 78; BMI 23.9
--- OUTSIDE RECORDS SUMMARY | 2024-12-21 12:12 | XMS_ITS | Clinical Summary ---
Author Organization [facility] Address [address] [place] [address] Care Team Providers Care Motorcycle Subassembler Name Role Phone Unavailable Primary Care Provider [...] Plan of Treatment Not on file Insurance [place] MEDICAID DENTAL HEALTH SAFETY NET DENTAL
--- OUTSIDE RECORDS SUMMARY | 2024-12-21 12:12 | XMS_ITS | Clinical Summary ---
Author Organization [facility] Address [address] [place] [address] Care Team Providers Care Transportation Services Representative Name Role Phone Unavailable Primary Care Provider [...] Hepatitis C Antibody NON-REACTI VE NON-REACT NADYA [facility] Hepatitis C Antibody (s/co) 0.01 <1.00 [facility] Blood specimen (specimen) Blood specimen / Unknown 03/24/2018 7:42 AM EDT 03/24/2018 7:42 AM EDT Narrative [facility] - 03/25/2018 12:30 AM EDT FASTING:YES FASTING: YES Resulting Agency Comment Performing Organization Information: Site ID: [id number] Name: [facility] Address: [address] [place] [address], [place] [address] Director: Israel Mckeon MD Carla Vang MD LAB BLOOD ORDERABLES Final R esult [email or web address] [address], [place] [address] from Last 3 Months or Most Recently Relevant to Health Maintenance Insurance [facility]
--- OUTSIDE RECORDS SUMMARY | 2024-12-21 12:12 | XMS_ITS | Clinical Summary ---
Author Organization [facility] Address [address] [place] [address] Phone Care Team Providers Care Technical Services Manager Name Role Phone Cecil Gan Primary Care Provider + Allergies No known active allergies Medications buPROPion (WELLBUTRIN XL) 150 MG ER 24 hr tablet Take 150 mg by mouth daily. Active dextroamphetami ne-amphetamine (ADDERALL) 10 mg Tab tablet Take 10 mg by mouth 2 (two) times a day. Active ibuprofen (ADVIL,MOTRIN) 800 MG tablet Take 800 mg by mouth every 6 (six) hours as needed for pain (specific location in comments). Active acetaminophen (TYLENOL) 500 MG tablet Take 500 mg by mouth every 6 (six) hours as needed for pain (specific location in comments). Active cholecalciferol (VITAMIN D3) 2,000 unit capsule Take by mouth daily. Active naproxen (NAPROSYN) 375 MG tablet Take 1 tablet (375 mg total) by mouth 2 (two) times a day with meals. 60 tablet 1 10/15/2021 Active Immunizations Immunization Administration Dates Next Due COVID-19 (Pre-03/15) Moderna Vaccine, mRNA, PF 0 08/08/2020,07/13/2020 Influenza Trivalent w/ Preservative IM 8 Tdap 11/08/2020 Social History Tobacco Use Types Packs/Day Years Used Date Smoking Tobacco: Former Smokeless Tobacco: Never Education Answer Date Recorded Are you interested in more education? Not on darnell e 09/18/2022 Are you concerned about learning? Not on file 09/18/2022 No 09/18/2022 No 09/18/2022 Digital Access Answer Date Recorded No 10/17/2022 No 10/17/2022 No 10/17/2022 Reliable internet access at home? Not on file 10/17/2022 Device with a working camera? Not on file Comments Unknown Sex and Gender Information Value Date Recorded Sex Assigned at Not on file Legal Sex Female 10:54 AM EST Gender Identity Not on file Sexual Orientation Not on file Last Filed Vital Signs Vital Sign Reading Time Taken Comments Blood Pressure 116/70 10/15/2021 1:37 PM EDT Pulse 70 10/15/2021 1:37 PM EDT Temperature - - Respiratory Rate 16 10/15/2021 1:37 PM EDT Oxygen Saturation 97% 10/15/2021 1:37 PM EDT Inhaled Oxygen Concentration - - Weight 61.1 kg (134 lb 12.8 oz) 10/15/2021 1:37 PM EDT Height 166 cm (5' 5.35 ) 10/15/2021 1:37 PM EDT Body Mass Index 22.19 10/15/2021 1:37 PM EDT Plan of Treatment Health Maintenance Due Date Last Done Comments LIPID PANEL 1958 DEPRESSION SCREENING 1970 SMOKING Hx and SMOKELESS TOBACCO SCREENING 11/26/1971 MAMMOGRAM 1998 COLOGUARD 11/26/2003 COLONOSCOPY 11/26/2003 COLORECTAL CANCER SCREENING 11/26/2003 FIT TEST 11/26/2003 FOBT 11/26/2003 SIGMOIDOSCOPY 11/26/2003 VIRTUAL COLONOSCOPY 11/26/2003 PNEUMOCOCCAL VACCINES (50+ years) (1 of 1 - PCV) 2008 ZOSTER VACCINES (1 of 2) 2008 OSTEOPOROSIS SCREENING INITI AL (ONE-TIME) 11/26/2023 COVID-19 VACCINE (3 - 2023-2 5 season) 2024 08/08/2020, 07/13/2020 Adult Td,Tdap Booster 11/08/2030 11/08/2020 RSV VACCINE (1 - 1-dose 75+ series) 2033 HEPATITIS C SCREENING Completed 03/24/2018 HEPATITIS A VACCINES Aged Out No long er eligible based on patient's age to complete this topic HIB VACCINES Aged Out No longer eligi ble based on patient's age to complete this topic MENINGOCOCCAL VACCINES (ACWY) Aged Out No longer eligible based on patient's age to complete this topic MENINGOCOCCAL VACCINES (B) Aged Out N o longer eligible based on patient's age to complete this topic Medical Devices Not on file Insurance ACO ACO ACO ACO ACO ACO ACO ACO ACO Care Teams Technical Services Manager Relationship Specialty Start Date End Date Cecil Gan PA [address] [place] [address] PCP - General 02/19/21 Additional Source Comments The information contained in this document represents components of the legal health record. It is not the complete legal health record.[facility]
== END 2024-12-21 11:49 | disposition home or self-care (01) ==
LOC: HO.HGS 11:25
PROVIDERS: PCP Physician Assistant; Visit Provider Surgery
DX: N61.0 Mastitis without abscess (principal)
CPT/HCPCS: 99213

== ENCOUNTER → 2024-12-21 11:25 | Outpatient (BNVA) | payer MEDICARE, OTHER, SELFPAY | PROVIDERS: PCP Physician Assistant; Visit Provider Surgery | DX: N61.0 Mastitis without abscess (principal) | CPT/HCPCS: 99212 ==

== ENCOUNTER 2025-02-07 11:21 | Outpatient (AMB) | payer MEDICARE, MEDICAID, SELFPAY ==
--- NOTE | 2025-02-07 11:23 | A.OFFVIS_ITS ---
Intake Vital Signs 02/07/25 11:26 Height 5 ft 6 in Weight 147 lb 6 oz BMI 23.8 BP 110/70 Blood Pressure Location Lt brachial Position Sitting Pulse 76 Pulse Source Pulse Oximeter Temp 97.1 F Temp Source Temporal Artery Scan Pulse Oximetry (%) 94 Oxygen Delivery Method Room Air Intake Visit Reasons: pe Intake Note: Patient is here for an Annual Wellness Visit. Textbook Associate Required: No Solar Sales Energy Advisor: Solar Sales Energy Advisor offered & declined Accompanied by: Self / Same As Patient Allergies No Known Allergies Allergy (Verified 02/07/25 11:43) Medication List - Last Reconciled 02/07/25 by Cecil Gan PA-C acetaminophen ER (Tylenol 8 Hour) 650 mg PO Q12H 30 days atorvastatin 10 mg PO DAILY azelastine 1 spray intranasal BID 30 days dextroamphetamine-amphetamine 10 mg (Adderall) 10 mg PO BID duloxetine 60 mg PO DAILY lorazepam 1 mg PO BID methocarbamol 750 mg PO Q8H PRN 10 days naproxen 375 mg PO BID PRN pantoprazole (Protonix) 20 mg PO DAILY 90 days HPI pe HPI Details Patient is a 64-year-old female here today for an annual wellness visit. Patient has a past medical history significant for cervical spine disease, hyperlipidemia and major depressive disorder. Today we discussed patient's [place] of care , end of life planning and comprehensive care plan which was updated and scanned into patient's documents. 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 SLICER MACHINE OPERATOR - [place] Bone density: Done in 2023 Colorectal cancer screening: Colonoscopy done in 2019, tubular adenoma polyp found, repeat 5 years [facility]ine: considering flu vaccine, UTD CVOID, utd tdap, needs PCV- 20 Laboratory Tests 02/15/20 11/10/22 07/20/23 10:10 10:24 10:04 WBC 3.7 L RBC 4.28 Hgb Creatinine 0.74 AST ALT Cholesterol 198 270 H LDL Cholesterol, C alc 180 H TSH 0.83 Urine Glucose (UA) PETTY Screen Positive H PETTY Titer 1:320 H 11/09/23 07/07/24 07/07/24 13:02 12:48 12:52 WBC RBC 3.92 L Hgb 12.4 Creatinine 0.82 AST 29 ALT 39 H Cholesterol LDL Cholesterol, C alc TSH 0.82 Urine Glucose (UA) 100 H PETTY Screen PETTY Titer 09/13/24 11:22 WBC RBC Hgb Creatinine AST ALT Cholesterol 220 H LDL Cholesterol, C alc 133 H TSH Urine Glucose (UA) PETTY Screen PETTY Titer HPI Comments History of Present Illness Details reviewed past medical history- yes reviewed surgical / hospitalization history- yes reviewed current medications- yes reviewed family history- yes home safety throw rugs? grab bars? raised toilet seat? working smoke detectors? activities of daily living difficulty bathing or showering? difficulty dressing? difficulty using the toilet? difficulty getting in and out of bed? difficulty walking? receives help from other person's with any of the above tasks? instrumental activities of daily living uses telephone - gets to place out of walking distance- go shopping for groceries- repairs own meals- does own minor home maintenance- does own laundry- does own housework- manages own money- currently takes medication- end of life planning discussed advanced directives- yes advanced directives on file? discussed wishes expressed in advanced directives. fall risk have you had any falls with injuries in the past year? have you had 2 or more falls in the past year? fall risk assessment: [facility] Medical History Lump of right breast Painful lumpy right breast Osteopenia after menopause Colon adenomas Cervical spondylitis Pharyngoesophageal dysphagia DONNIE (generalized anxiety disorder) Leukopenia Depression Menopause Lumbar radiculopathy Hyperlipidemia Fibromyalgia Anxiety Surgical History History of colonoscopy History of back surgery History of tubal ligation Family History Father Lung cancer Plaque psoriasis Mother Lung cancer Paternal Uncle Colon cancer Sister Raynaud's disease Family/Other History of breast cancer Paternal Aunt No problems noted. 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 [employer] Current occupational exposures/hazards: No Cognitive needs: No Hearing needs: No Vision needs: No Female Reproductive History Menstrual Age of Menarche: 11 Questionnaire Medicare Wellness Checkup What [age] your [age]?: 65-67 What gender do you identify with?: female During the past 4 weeks, how much have you been bothered by emotional problems such as feeling anxious, depressed, irritable, sad or downhearted, and blue?: quite a bit During the past 4 weeks, has your physical & emotional health limited your social activities with family, friends, neighbors, or groups?: quite a bit During the past 4 weeks, how much bodily pain have you generally had?: moderate pain During the past 4 weeks, was someone available to help you if you needed & wanted help?: yes, quite a bit During the past 4 weeks, what was the hardest physical activity you could do for at least 2 minutes?: moderate Can you get to places out of walking distance without help? (For eg., can you travel alone on buses, taxis or drive your car?): Yes Can you go shopping for groceries or clothes without someone's help?: Yes Can you prepare your own meals?: Yes Can you do your housework without help?: Yes Because of any health problems, do you need the help of another person with your personal care needs such as eating, bathing, dressing or getting around the house?: No Can you handle your own money without help?: Yes During the past 4 weeks, how would you rate your health in general?: good During the past 4 weeks how have things been going for you?: good & bad parts about equal Are you having difficulties driving your car?: no Do you always fasten your seat belt when you are in a car?: yes, usually During past 4 weeks, have you been bothered by the following: never: Falling or dizzy when standing up, Sexual problems? and Problems using the telephone?, sometimes: Trouble eating well? and Teeth or denture problems? and always: Tiredness or fatigue? Have you fallen 2 or more times in the past year?: No Are you afraid of falling?: No Are you a smoker?: no During the past 4 weeks, how many drinks of wine, beer, or other alcoholic beverages did you have?: 1 drink or less per week Do you exercise for about 20 minutes 3 or more times a week?: yes, some of the time Have you been given information to help with the following?: yes: Keeping track of your medications? and no: Hazards in your house that might hurt you? How often do you have trouble taking medicines the way you have been told to take them?: I always take medicine as prescribed How confident are you that you can control & manage most of your health problems?: very confident What is your race?: White Mini Mental State Exam (MMSE) Orientation What is the (year) (season) (date) (day) (month)?: year Where are we (state) (county) (town or city) (hospital) (floor)?: town or city Attention & Calculation (CHOOSE ONE) Spell WORLD backwards (DLROW): 5 letters Score Score: 7 Activity of Daily Living Bathing - sponge bath, tub bath or shower: receives no assistance (gets in/out by self, if usual bathing means Dressing - getting clothes from closets & drawers, including inner/outer garments & fasteners.: gets clothes & gets completely dressed without help Toileting - going to the 'toilet room' for urine/bowel elimination & cleaning self/arranging clothes: goes to toilet room, cleans self, arranges clothes without help Transfer: moves in & out of bed and chair without help (may use support object) Continence: controls urination/bowel movements completely by self Feeding: feeds self without help Total Score: 0 Information obtained from: patient Using telephone: independent Traveling: independent Shopping: independent Preparing meals: independent Housework: independent Taking medicine: independent Managing money: independent PHQ-9 Over the last 2 weeks, how often have you been bothered by any of the following problems? 1. Little interest or pleasure in doing things: more than half the days 2. Feeling down, depressed, or hopeless: more than half the days 3. Trouble falling or staying asleep, or sleeping too much: several days 4. Feeling tired or having little energy: nearly every day 5. Poor appetite or overeating: more than half the days 6. Feeling bad about yourself - or that you are a failure or have let yourself or your family down: more than half the days 7. Trouble concentrating on things, such as reading the newspaper or watching television: more than half the days 8. Moving or speaking so slowly that other people could have noticed. Or the opposite - being so fidgety or restless that you have been moving around a lot more than usual: not at all 9. Thoughts that you would be better off or of hurting yourself in some way: not at all Total score: 14 Depression Screening Interpretation: Positive Depression Screening Done: Yes 17052 - PHQ-9 Billing: Yes Source: Developed by Drs. Umang Bryan, Zenaida Andrade, Los Cunningham and colleagues, with an educational bala from [employer]. Thrive Questionnaire Date Thrive assessed: 08/01/24 I am a: Patient What is your living situation today?: I have a steady place to live Within the past 12 months, did the food you bought not last and you didn't have the money to get more?: Sometimes True Within the past 12 months, did you worry whether your food would run out before you got money to buy more?: Sometimes True Do you have trouble paying for medicines?: No Do you have trouble getting transportation to medical appointments?: No Do you have trouble paying your heating and electricity bill?: No Do you have trouble taking care of your child, family member or friend?: No Do you have trouble with day-to-day activities such as bathing, preparing meals, shopping, managing finances, etc.?: No Are you currently unemployed and looking for a job?: No Are you interested in more education?: No Please select the resources that you would like help with: None Currently or been in a relationship where the following occur: No concerns reported THRIVE Score: 2 DONNIE-7 AMB Questionnaire DONNIE-7 Date DONNIE - 7 assessed: 02/07/25 Feeling nervous, anxious, or on edge: 2 = More than half the days Not being able to stop or control worryin = Several days Worrying too much about different things: 2 = More than half the days Trouble relaxin = Several days Being so restless that it is hard to sit still: 1 = Several days Becoming easily annoyed or irritable: 0 = Not at all Feeling afraid as if something awful might happen: 1 = Several days Total DONNIE-7 score (0-4 normal; 5-9 mild; 10-14 moderate; 15-21 severe): 8 Source: Developed by Drs. Umang Bryan, Zenaida Andrade, Los Cunningham and colleagues, with an educational bala from [employer]. DONNIE-7 Assessment Billing DONNIE-7 Assessment Tool: DONNIE-7 Assessment 15822 AUDIT C Alcohol Use Questionnaire (AUDIT-C) 1. How often do you have a drink containing alcohol?: Monthly or less Total Score: 1 Physical Exam Vital Signs: Last Vital Signs Temp 97.1 F 02/07/25 11:26 Pulse 76 02/07/25 11:26 BP 110/70 02/07/25 11:26 Pulse Ox 94 02/07/25 11:26 Oxygen Delivery Method Room Air 02/07/25 11:26 BMI result Body Mass Index 23.8 HEENT Other: hearing screening whisper test- passed Eyes Other: vision screening- 2020 OS OD OU Other: urinary incontinence? no Neuro Other: balance Romberg- normal tandem walk test- able walk-in turned test- able rise from sit to stand- within 2 seconds Assessment & Plan Assessment & Plan (1) Annual wellness visit: Code(s): Z00.00 - Encounter for general adult medical examination without abnormal findings Plan: As per HPI (2) Tubular adenoma of colon: Code(s): D12.6 - Benign neoplasm of colon, unspecified Plan: Will reach out to [place] [facility] to schedule patient for appointment for repeat colonoscopy. Orders: Orders Complete Blood Count no Diff Today E78.2 - Mixed hyperlipidemia Lipid Panel Today E78.2 - Mixed hyperlipidemia Comprehensive [place]. Panel Fast Today E78.2 - Mixed hyperlipidemia TSH reflex Free T4 Today E78.2 - Mixed hyperlipidemia Quality Reporting (2019) Depression/Bipolar (159/160/161/177) PHQ-9: Total score: 14 Coding Level of Care Code Medicare First (G0438) Diagnoses Annual wellness visit Z00.00 Tubular adenoma of colon D12.6 CPT Codes Advance Care Planning - Time spent: 1-15 minutes, not on file ([id number]) Additional Codes PHQ-9 - 92897 - PHQ-9 Billing: Yes ([id number]) DONNIE-7 Assessment Billing - DONNIE-7 Assessment Tool: DONNIE-7 Assessment 31751 ([id number]) Advance Care Planning Advance Care Planning discussion: Exists, not on file Date of discussion: 02/07/25 Forms completed: VANDANA Time spent: 1-15 minutes, not on file Actual minutes spent: 2
[2025-02-07 11:26] VITALS: BP 110/70; PULSE 76; TEMP 36.2; O2SAT 94; BMI 23.8
--- OUTSIDE RECORDS SUMMARY | 2025-02-07 14:43 | XMS_ITS | Encounter Summary ---
Author Organization [facility] Address [address] [place] [address] Care Team Providers Care Water Treatment Operator Name Role Phone Carla Vang MD Primary Care Provider [phone] Ariana Harrell FISH PEDDLER Unavailable [phone] Encounter Details Date Type Department Care Team (Late st Contact Info) Description 12/23/2018 Scanned Document [address] [phone] Ariana Harrell, FISH PEDDLER [address] [place] [address] Social History Tobacco Use Types Packs/Day Years [...] on filedocumented in this encounter Care Teams Water Treatment Operator Relationship Specialty Start Date End Date Carla Vang MD [address] [place] [address] PCP - General Internal Medicine 03/15/18 12/24/20 Ariana Harrell, FISH PEDDLER [address] [place] [address] Gate Shear Operator Clinical Social Work 12/27/18 03/06/19 documented as of this encounter
--- OUTSIDE RECORDS SUMMARY | 2025-02-07 14:43 | XMS_ITS | Encounter Summary ---
Author Organization [facility] Address [address] [place] [address] Care Team Providers Care Analysis Specialist Name Role Phone Carla Vang MD Primary Care Provider [phone] Ariana HarrellW Unavailable [phone] Encounter Details Date Type Department Care Team (Late st Contact Info) Description 09/01/2018 Scanned Document [address] [place] [phone] Provider, Generic Social History Tobacco Use [...] on filedocumented in this encounter Care Teams Analysis Specialist Relationship Specialty Start Date End Date Carla Vang MD [address] [place] [address] PCP - General Internal Medicine 03/15/18 12/24/20 Ariana Harrell DOCUMENTATION ANALYST [address] [place] [address] Catholic Priest Clinical Social Work 12/27/18 03/06/19 documented as of this encounter
--- OUTSIDE RECORDS SUMMARY | 2025-02-07 14:43 | XMS_ITS | Encounter Summary ---
Author Organization [facility] Address [address] [place] [address] Care Team Providers Care Agricultural Research Engineer Name Role Phone Carla Vang MD Primary Care Provider [phone] Ariana Harrell CITRIX CONSULTANT Unavailable [phone] Encounter Details Date Type Department Care Team (Late st Contact Info) Description 03/15/2018 Scanned Document [address] [phone] Provider, Generic Social History Tobacco Use Types [...] on filedocumented in this encounter Care Teams Agricultural Research Engineer Relationship Specialty [place] [address] [place] [address] PCP - General Internal Medicine 03/15/18 12/24/20 Ariana Harrell, CITRIX CONSULTANT [address] [place] [address] Lapel Stitcher Clinical Social Work 12/27/18 03/06/19 documented as of this encounter
--- OUTSIDE RECORDS SUMMARY | 2025-02-07 14:43 | XMS_ITS | Encounter Summary ---
Author Organization [facility] Address [address] [place] [address] Care Team Providers Care Plant Mechanic Name Role Phone Carla Vang MD Primary Care Provider [phone] Ariana Harrell WELL CONTROL INSTRUCTOR Unavailable [phone] Encounter Details Date Type Department Care Team (Late st Contact Info) Description 02/01/2019 Scanned Document [address] [phone] Carla Vang MD [address] [place], [place] [phone] Social History Tobacco Use Types Packs/Day Years [...] on filedocumented in this encounter Care Teams Plant Mechanic Relationship Specialty Start Date End Date Carla Vang MD [address] [place] [address] PCP - General Internal Medicine 03/15/18 12/24/20 Ariana Harrell, WELL CONTROL INSTRUCTOR [address] [place] [address] Rig Hand Clinical Social Work 12/27/18 03/06/19 documented as of this encounter
--- OUTSIDE RECORDS SUMMARY | 2025-02-07 14:43 | XMS_ITS | Encounter Summary ---
Author Organization [facility] Address [address] [place] [address] Care Team Providers Care Extrusion Bender Name Role Phone Carla aVng MD Primary Care Provider [phone] Reason for Visit * Reason Comments Medication Refill Encounter Details Date Type Department Care Team (Late st Contact Info) Description 04/09/[address] [phone] Carla Vang MD [address] [place] [address] Reactive depression Social History Tobacco Use Types [...] depression documented in this encounter Care Teams Extrusion Bender Relationship Specialty Start Date End Date Carla Vang MD [address] [place] [address] PCP - General Internal Medicine 03/15/18 12/24/20 documented as of this encounter
--- OUTSIDE RECORDS SUMMARY | 2025-02-07 14:43 | XMS_ITS | Clinical Summary ---
Author Organization [facility] Address [address] [place] [address] Phone Care Team Providers Care Supervisor Commercial Fish Hatchery Name Role Phone Cecil Gan Primary Care [...] (Pre-03/15) Moderna Vaccine, mRNA, PF 0 08/08/2020,07/13/2020 INFLUENZA, SPLIT VIRUS, TRIVALENT W/ PRESERVATIV E IM 03/15/2018 Tdap 11/08/2020 Social History Tobacco Use Types [...] 2008 OSTEOPOROSIS SCREENING INITI AL (ONE-TIME) 11/26/2023 INFLUENZA VACCINE (#1) 2024 , 03/15/2018 COVID-19 VACCINE (3 - 2024-2 6 season) 2025 08/08/2020, 07/13/2020 Adult Td,Tdap Booster 11/08/2030 11/08/2020 [...] ACO ACO ACO ACO ACO Care Teams Supervisor Commercial Fish Hatchery Relationship Specialty Start Date End Date Cecil Gan PA [address] [place] [address] PCP - General 02/19/21 Additional Source Comments The information contained in this document represents components of the legal health record. It is not the complete legal health record.[facility]
--- OUTSIDE RECORDS SUMMARY | 2025-02-07 14:43 | XMS_ITS | Encounter Summary ---
Author Organization [facility] Address [address] [place] [address] Care Team Providers Care Community Organizer Name Role Phone Carla Vang MD Primary Care Provider [phone] Reason for Visit * Reason Comments Medication Refill Encounter Details Date Type Department Care Team (Late st Contact Info) Description 07/08/[address] [phone] Carla Vang MD [address] [place] [address] Reactive depression Social History Tobacco Use Types [...] depression documented in this encounter Care Teams Community Organizer Relationship Specialty [place] [address] [place] [address] PCP - General Internal Medicine 03/15/18 12/24/20 documented as of this encounter
--- OUTSIDE RECORDS SUMMARY | 2025-02-07 14:43 | XMS_ITS | Encounter Summary ---
Author Organization [facility] Address [address] [place] [address] Care Team Providers Care It Generalist Name Role Phone Carla Vnag MD Primary Care Provider [phone] Ariana Harrell NETWORK CABLER Unavailable [phone] Encounter Details Date Type Department Care Team (Late st Contact Info) Description 03/23/2018 Scanned Document [address] [phone] Carla Vang MD [address] [place], [place] [phone] Social History Tobacco Use Types Packs/Day Years [...] on filedocumented in this encounter Care Teams It Generalist Relationship Specialty Start Date End Date Carla Vang MD [address] [place] [address] PCP - General Internal Medicine 03/15/18 12/24/20 Ariana Harrell, NETWORK CABLER [address] [place] [address] Highway Construction Inspector Clinical Social Work 12/27/18 03/06/19 documented as of this encounter
--- OUTSIDE RECORDS SUMMARY | 2025-02-07 14:43 | XMS_ITS | Clinical Summary ---
Author Organization [facility] Address [address] [place] [address] Care Team Providers Care Subcontract Manager Name Role Phone Unavailable Primary Care Provider [...] Health Maintenance Due Date Last Done Comments Advance Care Planning 1960 DTaP/Tdap/Td Vaccines (1 - Tdap) 1977 Colonoscopy 2008 Pneumococcal Vaccines 50+ (1 of 1 - PCV) 2008 Zoster (Shingles) Vaccine (1 of 2) 2008 Mammogram 09/30/2019 09/29/2018, 08/23 (Previously Completed), 09/15/2018, Additional history exists DXA Bone Density (Females,Ages 65 and older) 11/26/2023 Influenza Vaccine 12/22/2024 03/15/2018 COVID-19 Vaccine (2023- season) 2025 RSV Vaccine 60 years and older and [...] Hepatitis C Antibody NON-REACTI VE NON-REACT NADYA [facility] Hepatitis C Antibody (s/co) 0.01 <1.00 [facility] Blood specimen (specimen) Blood specimen / Unknown 03/24/2018 7:42 AM EDT 03/24/2018 7:42 AM EDT Narrative [facility] - 03/25/2018 12:30 AM EDT FASTING:YES FASTING: YES Resulting Agency Comment Performing Organization Information: Site ID: [id number] Name: [facility] Address: [address] [place] [address], [place] [address] Director: Israel Mckeon MD Carla Vang MD LAB BLOOD ORDERABLES Final R esult [facility] [address] [facility] 3rd [address], [place] [address] from Last 3 Months or Most Recently Relevant to Health Maintenance Insurance [facility]
--- OUTSIDE RECORDS SUMMARY | 2025-02-07 14:43 | XMS_ITS | Clinical Summary ---
Author Organization [facility] Address [address] [place] [address] Care Team Providers Care Corporate Auditor Name Role Phone Unavailable Primary Care Provider [...] Plan of Treatment Not on file [place] SAF[place]Y NET DENTAL
== END 2025-02-07 12:15 | disposition home or self-care (01) ==
LOC: HO.HMCH 11:22
PROVIDERS: PCP Physician Assistant; Visit Provider Physician Assistant
DX: Z00.00 Encounter for general adult medical examination without abnormal findings (principal); D12.6 Benign neoplasm of colon, unspecified

== ENCOUNTER → 2025-02-07 11:21 | Outpatient (BNVA) | payer MEDICARE, MEDICAID, SELFPAY | PROVIDERS: PCP Physician Assistant; Visit Provider Physician Assistant | DX: Z00.00 Encounter for general adult medical examination without abnormal findings (principal); F32.A Depression, unspecified; D12.6 Benign neoplasm of colon, unspecified; E78.2 Mixed hyperlipidemia | CPT/HCPCS: 96127 ==

== ENCOUNTER 2025-02-13 08:08 | Outpatient (REF) | payer MEDICARE, MEDICAID, SELFPAY ==
[2025-02-14 02:28] LABS: Bacterial Vaginosis PCR NEGATIVE (Negative); Candida Group PCR NOT DETECTED (Not Detect); Candida glab krusei PCR NOT DETECTED (Not Detect); Trichomonas vaginalis PCR NOT DETECTED (Not Detect)
== END 2025-02-13 08:09 | disposition home or self-care (01) ==
LOC: HO.LNP 08:08
PROVIDERS: PCP Physician Assistant; Visit Provider Advanced Practice Midwife
DX: N90.5 Atrophy of vulva (principal); Z20.2 Contact with and (suspected) exposure to infections with a predominantly sexual mode of transmission; Z79.899 Other long term (current) drug therapy; Z98.51 Tubal ligation status
CPT/HCPCS: 81515; 99212

== ENCOUNTER 2025-02-13 08:08 | Outpatient (AMB) | payer MEDICARE, MEDICAID, SELFPAY ==
[2025-02-13 08:10] VITALS: BP 124/62
--- NOTE | 2025-02-13 08:10 | A.OFFVIS_ITS ---
Vital Signs 02/13/25 08:10 Height 5 ft 6 in BP 124/62 Blood Pressure Location Lt brachial Position Sitting Intake Visit Reasons: VAG DRYNESS Technical Healthcare Consultant Required: No Allergies No Known Allergies Allergy (Verified 02/13/25 08:13) Medication List - Last Reconciled 02/13/25 by Norma Zazueta LPN acetaminophen ER (Tylenol 8 Hour) 650 mg PO Q12H 30 days atorvastatin 10 mg PO DAILY azelastine 1 spray intranasal BID 30 days dextroamphetamine-amphetamine 10 mg (Adderall) 10 mg PO BID duloxetine 60 mg PO DAILY lorazepam 1 mg PO BID methocarbamol 750 mg PO Q8H PRN 10 days naproxen 375 mg PO BID PRN pantoprazole (Protonix) 20 mg PO DAILY 90 days HPI Comments Details: Patient is here today with concerns for vulvar itching and dryness. She is not sexually active. She denies any pelvic pain, urinary symptoms, vaginal discharge or odors. She routinely uses gentle products for cleansing and has not changed her routine. She admits to fatigue, brain fog and hair loss. [facility] Medical History (Updated 02/13/25 @ 11:52 by Kassandra Alexander CNM) Atrophic vulva Lump of right breast Painful lumpy right breast Osteopenia after menopause Colon adenomas Cervical spondylitis Pharyngoesophageal dysphagia DONNIE (generalized anxiety disorder) Leukopenia Depression Menopause Lumbar radiculopathy Hyperlipidemia Fibromyalgia Anxiety Surgical History History of colonoscopy History of back surgery History of tubal ligation Family History Father Lung cancer Plaque psoriasis Mother Lung cancer Paternal Uncle Colon cancer Sister Raynaud's disease Family/Other History of breast cancer Paternal Aunt No problems noted. 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 Current occupational exposures/hazards: No Cognitive needs: No Hearing needs: No Vision needs: No Female Reproductive History Menstrual Age of Menarche: 11 Menopause type: natural History of abnormal pap smear: Yes History of STI: No History of abnormal mammogram: No Review of Systems Const All systems reviewed & are unremarkable except as noted in HPI and below Physical Exam Vital Signs: Last Vital Signs BP 124/62 02/13/25 08:10 Const General: cooperative, healthy appearing and no acute distress Orientation/consciousness: patient oriented x3 GI Inspection: Yes normal to inspection Palpation (GI): Soft to palpation and Other GI palpation findings present (Nontender) Rectal Exam - Female: visual inspection normal General: Yes bladder normal to palpation External Female Exam: normal appearance of the urethra Speculum Exam - Vagina: normal appearance of the vagina, normal palpation, normal vaginal discharge and vagina atrophic Speculum Exam - Cervix: normal appearance of the cervix and normal palpation Bimanual exam- vagina & uterus: normal bimanual exam, normal palpation, uterine size normal, bladder normal to palpation, normal palpation, uterine shape normal and non-tender Bimanual Exam- Adnexa, other: normal adnexae Neuro General: patient oriented x3 Assessment & Plan Assessment & Plan (1) Atrophic vulva: Code(s): N90.5 - Atrophy of vulva Category: Medical Plan Discussed role of estrogen for atrophic changes and benefits for prevention of GSM. Skin care. Counseled re: risks/benefits, side effects, and warnings for use, incl: breast cancer and effects of estrogen for potential tumor growth. Breast health awareness and to report any breast changes or findings. Maintain yearly mammogram study. Instructed on estrogen use for topical application, location, frequency, titration and maintenance dosing. The patient expressed understanding and agreement with the plan of care. All of her questions and concerns were addressed to the best of my ability. Plan follow up s med check appointment in 2-3 months. This note is constructed using voice recognition software. While every effort has been made to ensure accuracy, supply chain director errors may have been included. Orders: Orders Bacterial Vaginosis Panel Today L29.2 - Pruritus vulvae Coding Level of Care Code Est Pt Level 3 (68469) Diagnoses Atrophic vulva N90.5
--- OUTSIDE RECORDS SUMMARY | 2025-02-13 08:58 | XMS_ITS | Clinical Summary ---
Author Organization [facility] Address [address] [place] [address] Care Team Providers Care Switchboard Inspector Name Role Phone Unavailable Primary Care Provider [...] Plan of Treatment Not on file [place] DENT[place] HEALTH SAFETY NET DENTAL
--- OUTSIDE RECORDS SUMMARY | 2025-02-13 08:58 | XMS_ITS | Encounter Summary ---
Author Organization [facility] Address [address] [place] [address] Care Team Providers Care Board Liner Operator Name Role Phone Carla aVng MD Primary Care Provider [phone] Ariana Harrell FLOOR COVERER Unavailable [phone] Encounter Details Date Type Department Care Team (Late st Contact Info) Description 02/01/2019 Scanned Document [address] [phone] Carla Vang MD [address] [place], [place] [id number] Social History Tobacco Use Types Packs/Day Years [...] on filedocumented in this encounter Care Teams Board Liner Operator Relationship Specialty Start Date End Date Carla Vang MD [address] [place] [address] PCP - General Internal Medicine 03/15/18 12/24/20 Ariana Harrell, FLOOR COVERER [address] [place] [address] Spinner Hydraulic Clinical Social Work 12/27/18 03/06/19 documented as of this encounter
--- OUTSIDE RECORDS SUMMARY | 2025-02-13 08:58 | XMS_ITS | Encounter Summary ---
Author Organization [facility] Address [address] [place] [address] Care Team Providers Care Road Contractor Name Role Phone Carla Vang MD Primary Care Provider + [phone] Ariana Harrell SOCIAL MEDIA DIRECTOR Unavailable [phone] Encounter Details Date Type Department Care Team (Late st Contact Info) Description 12/23/2018 Scanned Document [address] [phone] Ariana Harrell, SOCIAL MEDIA DIRECTOR [address] [place] [address] Social History Tobacco Use Types Packs/Day Years [...] on filedocumented in this encounter Care Teams Road Contractor Relationship Specialty Start Date End Date Crala Vang MD [address] [place] [address] PCP - General Internal Medicine 03/15/18 12/24/20 Ariana Harrell, SOCIAL MEDIA DIRECTOR [address] [place] [address] Floor Finisher Clinical Social Work 12/27/18 03/06/19 documented as of this encounter
--- OUTSIDE RECORDS SUMMARY | 2025-02-13 08:58 | XMS_ITS | Clinical Summary ---
Author Organization [facility] Address [address] [place] [address] Care Team Providers Care Bus Repair Supervisor Name Role Phone Unavailable Primary Care Provider [...] Performing Organization Information: Site ID: [id number] Name: [employer] Address: [address] [place] [address], [place] [address] Director: Israel Mckeon MD Carla Vang MD LAB BLOOD ORDERABLES Final R esult [facility] [address] [facility] 3rd Floor, [place] [address] from Last 3 Months or Most Recently Relevant to Health Maintenance Insurance [facility]
--- OUTSIDE RECORDS SUMMARY | 2025-02-13 08:58 | XMS_ITS | Clinical Summary ---
Author Organization [facility] Address [address] [place] [phone] Phone Care Team Providers Care Secretary Office Clerk Name Role Phone Cecil Gan Primary Care [...] ACO ACO ACO ACO ACO Care Teams Secretary Office Clerk Relationship Specialty Start Date End Date Cecil Gan PA [address] [place] [address] PCP - General 02/19/21 Additional Source Comments The information contained in this document represents components of the legal health record. It is not the complete legal health record.[facility]
--- OUTSIDE RECORDS SUMMARY | 2025-02-13 08:59 | XMS_ITS | Encounter Summary ---
Author Organization [facility] Address [address] [place] [address] Care Team Providers Care Food Checker Name Role Phone Carla Vang MD Primary Care Provider [phone] Ariana Harrell DISTILLING DEPARTMENT SUPERVISOR Unavailable [phone] Encounter Details Date Type Department Care Team (Late st Contact Info) Description 03/23/2018 Scanned Document [address] [phone] Carla Vang MD [address] [place], [place] [phone] Social History Tobacco Use Types Packs/Day Years [...] on filedocumented in this encounter Care Teams Food Checker Relationship Specialty Start Date End Date Carla Vang MD [address] [place] [address] PCP - General Internal Medicine 03/15/18 12/24/20 Ariana Harrell, DISTILLING DEPARTMENT SUPERVISOR [address] [place] [address] Dance Costume Designer Clinical Social Work 12/27/18 03/06/19 documented as of this encounter
--- OUTSIDE RECORDS SUMMARY | 2025-02-13 08:59 | XMS_ITS | Encounter Summary ---
Author Organization [facility] Address [address] [place] [address] Care Team Providers Care Automotive Assembler Name Role Phone Carla Vang MD Primary Care Provider [phone] Ariana HarrellW Unavailable [phone] Encounter Details Date Type Department Care Team (Late st Contact Info) Description 09/01/2018 Scanned Document [address] [place] [phone] Provider, Generic Social History Tobacco Use [...] on filedocumented in this encounter Care Teams Automotive Assembler Relationship Specialty Start Date End Date Carla Vang MD [address] [place] [address] PCP - General Internal Medicine 03/15/18 12/24/20 Ariana Harrell CRACKLING PRESS OPERATOR [address] [place] [address] Addiction Therapist Clinical Social Work 12/27/18 03/06/19 documented as of this encounter
--- OUTSIDE RECORDS SUMMARY | 2025-02-13 08:59 | XMS_ITS | Encounter Summary ---
Author Organization [facility] Address [address] [place] [address] Care Team Providers Care Senior Recruitment Consultant Name Role Phone Carla Vang MD Primary Care Provider [phone] Reason for Visit * Reason Comments Medication Refill Encounter Details Date Type Department Care Team (Late st Contact Info) Description 07/08/[address] [phone] Carla Vang MD [address] [place] [address] Reactive depression Social History Tobacco Use Types [...] documented in this encounter Care Teams Senior Recruitment Consultant Relationship Specialty [place] [address] [place] [address] PCP - General Internal Medicine 03/15/18 12/24/20 documented as of this encounter
--- OUTSIDE RECORDS SUMMARY | 2025-02-13 08:59 | XMS_ITS | Encounter Summary ---
Author Organization [facility] Address [address] [place] [address] Care Team Providers Care Round Corner Cutter Operator Name Role Phone Carla Vang MD Primary Care Provider [phone] Reason for Visit * Reason Comments Medication Refill Encounter Details Date Type Department Care Team (Late st Contact Info) Description 04/09/[address] [phone] Carla Vang MD [address] [place] [address] Reactive depression Social History Tobacco Use Types [...] depression documented in this encounter Care Teams Round Corner Cutter Operator Relationship Specialty Start Date End Date Carla Vang MD [address] [place] [address] PCP - General Internal Medicine 03/15/18 12/24/20 documented as of this encounter
--- OUTSIDE RECORDS SUMMARY | 2025-02-13 08:59 | XMS_ITS | Encounter Summary ---
Author Organization [facility] Address [address] [place] [address] Care Team Providers Care Manufacturing Operations Manager Name Role Phone Carla Vang MD Primary Care Provider [phone] Ariana Harrell FLOAT PHLEBOTOMIST Unavailable [phone] Encounter Details Date Type Department Care Team (Late st Contact Info) Description 03/15/2018 Scanned Document [address] [phone] Provider, Generic Social History Tobacco Use Types [...] on filedocumented in this encounter Care Teams Manufacturing Operations Manager Relationship Specialty [place] [address] [place] [address] PCP - General Internal Medicine 03/15/18 12/24/20 Ariana Harrell, FLOAT PHLEBOTOMIST [address] [place] [address] Office Support Specialist Clinical Social Work 12/27/18 03/06/19 documented as of this encounter
== END 2025-02-13 09:39 | disposition home or self-care (01) ==
LOC: HO.HWS 08:08
PROVIDERS: PCP Physician Assistant; Visit Provider Advanced Practice Midwife
DX: N90.5 Atrophy of vulva (principal)
CPT/HCPCS: 99213

== ENCOUNTER 2025-04-26 11:50 | Outpatient (REF) | payer MEDICARE, OTHER, SELFPAY ==
[2025-04-26 17:45] LABS: MANUAL DIFF FLAG NO
[2025-04-26 18:09] LABS: Hematocrit 38.4 % (37.0-47.0); Hemoglobin 12.1 g/dl (12.0-16.0); Imm Gran Abs Auto 0.02 X10*3/uL (0.00-0.03); Imm Gran Pct Auto 0.3 % (0.0-0.4); Lymphocytes Absolute Auto 1.6 X10*3/uL (1.2-4.9); Mean Corpuscular HGB Conc 31.5 g/dl (31.0-35.0); Mean Corpuscular Hemoglobin 30.0 pg (27.0-33.0); Mean Corpuscular Volume 95.0 fL (80.0-98.0); NRBC Abs Auto 0.000 X10*3/uL (0.0-0.012); NRBC Pct Auto 0.0 /100WBC (0.0-0.2); Platelet Count 341 X10*3/uL (160-400); Red Blood Count 4.04 X10*6/uL (4.20-5.50); White Blood Count 6.0 X10*3/uL (4.8-10.8)
[2025-04-26 18:36] LABS: Alanine Aminotransferase 24 U/L (0-31); Albumin Level 4.5 g/dL (3.5-5.0); Alkaline Phosphatase 73 U/L (39-117); Anion Gap 13 (12-20); Aspartate Amino Transferase 27 U/L (5-31); Blood Urea Nitrogen 12 mg/dL (9-16); Calcium 9.1 mg/dL (8.4-10.2); Carbon Dioxide 26 mmol/L (22-29); Chloride 106 mmol/L (96-108); Estimated Glomerular Filt Rate > 60; Potassium 4.6 mmol/L (3.3-5.1); Sodium 140 mmol/L (135-145); Total Protein 7.1 g/dL (6.5-8.0)
[2025-04-26 18:43] LABS: Free T4 (Free Thyroxine) 0.98 ng/dL (0.71-1.85)
[2025-04-26 18:46] LABS: Erythrocyte Sedimentation Rate 25 MM/HR (0-20)
[2025-04-26 19:20] LABS: Thyroid Stimulating Hormone 0.94 uIU/mL (0.32-4.0)
[2025-04-27 13:53] LABS: SM/Ribonucleoprotein Ab <1.0 NEG AI (<1.0 NEG); Smith Protein <1.0 NEG AI (<1.0 NEG)
[2025-04-27 18:45] LABS: Thyroglobulin Antibodies 3 IU/mL (< or = 1)
[2025-04-28 11:49] LABS: Follicle Stimulating Hormone 85.6 mIU/mL
[2025-05-04 06:24] LABS: Estradiol Ultra Sensitive <2 pg/mL
== END 2025-04-26 11:51 | disposition home or self-care (01) ==
LOC: HO.HKASLDS 11:50
PROVIDERS: PCP Physician Assistant; Visit Provider Student in an Organized Health Care Education/Training Program
DX: Z01.84 Encounter for antibody response examination (principal); M85.852 Other specified disorders of bone density and structure, left thigh; E03.9 Hypothyroidism, unspecified; M32.9 Systemic lupus erythematosus, unspecified; M79.7 Fibromyalgia; M15.9 Polyosteoarthritis, unspecified; E55.9 Vitamin D deficiency, unspecified; R23.2 Flushing; R76.89 Other specified abnormal immunological findings in serum; Z78.0 Asymptomatic menopausal state; Z79.899 Other long term (current) drug therapy
CPT/HCPCS: 36415; 80053; 82306; 82670; 83001; 84439; 84443; 85025; 85652; 86140; 86160; 86225; 86235; 86376; 86800

== ENCOUNTER 2025-04-26 11:50 | Outpatient (AMB) | payer MEDICARE, MEDICAID, SELFPAY ==
--- NOTE | 2025-04-26 11:52 | A.OFFVIS_ITS ---
Vital Signs 04/26/25 12:00 Height 5 ft 6 in Weight 149 lb 0.52 oz BMI 24.1 BP 120/80 Blood Pressure Location Lt brachial Position Sitting Pulse 75 Pulse Source Pulse Oximeter Pulse Oximetry (%) 98 Oxygen Delivery Method Room Air Intake Visit Reasons: PETTY +ve Intake Note: Patient presents today for PETTY +ve follow up. Travel Manager Required: No Accompanied by: Self / Same As Patient Allergies No Known Allergies Allergy (Verified 04/26/25 11:57) Medication List - Last Reconciled 04/26/25 by Janelle Shrestha MD acetaminophen ER (Tylenol 8 Hour) 650 mg PO Q12H 30 days atorvastatin 10 mg PO DAILY azelastine 1 spray intranasal BID 30 days dextroamphetamine-amphetamine 10 mg (Adderall) 10 mg PO BID duloxetine 90 mg PO DAILY estradiol 0.01%(0.1mg/gram) (Estrace) 1 g vaginal 2XW lorazepam 1 mg PO BID methocarbamol 750 mg PO Q8H PRN 10 days naproxen 375 mg PO BID PRN pantoprazole (Protonix) 20 mg PO DAILY 90 days HPI Comments Details: Patient is a 64-year-old female with hyperlipidemia, cervical disc disease with myelopathy, lumbar degenerative disc disease status post laminectomy complicated by post laminectomy syndrome, major depressive disorder/anxiety who is here today for follow up of fibromyalgia in the setting of positive PETTY Interval History: Patient last seen 10/24/24 with me. - On Pregabalin 25mg bid - Says she does not feel that pregabalin has been helpful. Requesting to try Savella Today - On cymbalta 90mg - Savella not covered by insurance, started on cymbalta. Same was increased by her psychiatrist - Started having hot flashes - Complaining of stiffness - Back pain and neck pain - fatigue Rheumatologic History: Initial history: This is 62-year-old female who presents for evaluation for possible inflammatory arthritis given her multiple joint pain and highly positive PETTY. Her PCP referred her for a positive PETTY 1:640. Patient states that over the last 4 years she has been having diffuse joint pain especially in her neck, all over her back, and also intermittent pain swelling and stiffness of her hands. She has generalized morning stiffness that lasts 2-3 hours. She showed me a picture of swelling of her left ulnar styloid, this was treated with prednisone by her PCP. She was evaluated by Dr. Torres in 2021 and further labs were ordered in the context of a positive PETTY but patient did not follow-up as the configuration management advisor was leaving the practice. Patient states that whenever her wrist and hands hurt, she took Tylenol, meloxicam and ibuprofen 800 mg daily all with minimal relief. Tylenol was most helpful. She denies any skin rashes, dry eyes, dry mouth, photosensitivity, difficulty swallowing, and hair loss. She had a colonoscopy in the past which showed polyps and diverticulosis. She denies any history of DVT/ PE, pluritis and pericarditis, fevers and headaches. She denies unexplained weight loss. --Denies uveitis. She has a sister with Raynaud's, another sister with ulcerative colitis. Father had plaque psoriasis. Three of her sisters have thyroid disease. --she describes a hx recurring oral ulcers - none on PE Current Rheumatology Medication(s): Cymbalta 90mg daily [facility] Medical History (Updated 04/26/25 @ 12:44 by Janelle Shrestha MD) Atrophic vulva Lump of right breast Painful lumpy right breast Osteopenia after menopause Colon adenomas Cervical spondylitis Pharyngoesophageal dysphagia DONNIE (generalized anxiety disorder) Leukopenia Depression Menopause Lumbar radiculopathy Hyperlipidemia Fibromyalgia Anxiety Surgical History History of colonoscopy History of back surgery History of tubal ligation Family History Father Lung cancer Plaque psoriasis Mother Lung cancer Paternal Uncle Colon cancer Sister Raynaud's disease Family/Other History of breast cancer Paternal Aunt No problems noted. 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 Current occupational exposures/hazards: No Cognitive needs: No Hearing needs: No Vision needs: No Female Reproductive History Menstrual Age of Menarche: 11 Review of Systems Narrative Review of Systems Constitutional: Denies fever, chills, weight loss ENT: Denies vision changes, eye pain or eye redness, dental caries, dry mouth GI: Denies nausea, vomiting, diarrhea, abdominal pain, change in BM Pulm: Denies SOB, ROWE, hemoptysis, wheezing Cards: Denies chest pain, palpitations VAT HOUSE SUPERVISOR: Denies headaches, weakness, paresthesias, recurrent falls MSK: as per HPI All other systems reviewed and are unremarkable except noted above Physical Exam Exam Exam: Vital signs reviewed Physical Examination CONSTITUITIONAL Patient alert and cooperative. Well appearing and in no apparent painful distress MSK Hands * Right Hand: Able to make a fist. No swelling or tenderness to palpation of the MCPs, PIPs or DIPs. * Left Hand: Able to make a fist. No swelling or tenderness to palpation of the MCPs, PIPs or DIPs. * Herbedens nodes noted bilaterally Wrists * Right Wrist: Full ROM to flexion and extension. No swelling or TTP * Left Wrist: Full ROM to flexion and extension. No swelling or TTP Elbows * Right Elbow: Full ROM. No swelling or TTP. No TTP of the medial epicondyle. No TTP of the lateral epicondyle * Left Elbow: Full ROM. No swelling or TTP. No TTP of the medial epicondyle. No TTP of the lateral epicondyle Shoulders * Right shoulder: Full ROM. No swelling noted. No TTP of the AC joint. No TTP of the subacromial bursa. No TTP of the posterior shoulder * Left shoulder: Full ROM. No swelling noted. No TTP of the AC joint. No TTP of the subacromial bursa. No TTP of the posterior shoulder Knees * Right knee: Full ROM. No swelling noted. No TTP of the knee joint line. No TTP of pes anserine bursa * Left knee: Full ROM. No swelling noted. No TTP of the knee joint line. No TTP of pes anserine bursa. Ankles * Right ankle: Good ankle dorsiflexion and plantar flexion. No swelling. No TTP of the ankle joint * Left ankle: Good ankle dorsiflexion and plantar flexion. No swelling. No TTP of the ankle joint Feet * Right foot: Negative squeeze test * Left foot: Negative squeeze test Tender points? * No tenderness to palpation of the bilateral trapezius, supraspinatus, anterior costochondral junctions, bilateral suboccipital muscle insertions SKIN No rashes Results Reviewed Results Reviewed: DEXA 08/2023 FINDINGS: LEFT FEMUR, NECK: BMD 0.771 g/cm2, Z-score -0.4, T-score -1.9, osteopenia. LEFT FEMUR, TOTAL: BMD 0.826 g/cm2, Z-score -0.2, T-score -1.4, osteopenia. AP SPINE L1-L4: BMD 0.954 g/cm2, Z-score -0.2, T-score -1.9, osteopenia. 2. 10-YEAR FRACTURE RISK PREDICTION, FRAX: Major osteoporotic fracture (clinical spine, forearm, hip or shoulder) 12.4%. Hip fracture 2.1%. Assessment & Plan Assessment & Plan (1) Fibromyalgia: Code(s): M79.7 - Fibromyalgia Category: Medical Plan: #Fibromyalgia Patient is a 64-year-old female with fibromyalgia. Evidence of fibromyalgia today on examination without any evidence of underlying inflammatory arthritis. No evidence of synovitis on examination of her MCPs, PIPs DIPs, elbows or knees. Continue duloxetine Plan - Check labs today: CBC, CMP, ESR, CRP, TSH, T4, Vit D - RTC 6 months (2) PETTY positive: Code(s): R76.8 - Other specified abnormal immunological findings in serum Category: Medical Plan: #Positive PETTY Patient with positive PETTY in the setting of polyarthralgias. No evidence of synovitis on examination and patient does not have any other signs or symptoms concerning for lupus, scleroderma or Sjogren's. Her positive PETTY also in accompanied by a positive TPO antibody which can explain the positive PETTY. Her TSH was normal about 1 year ago. She does not have any symptoms concerning for hypo or hyperthyroidism. She may have some element of undifferentiated connective tissue disease given her low complements however patient would like to try lifestyle changes and would not like to try Plaquenil at this time Plan - Check C3, C4, dsDNA (3) Osteopenia after menopause: Comment: DEXA 08/2023: AP Spine -1.9, Left femur neck -1.9, Left femur total -1.4. FRAX 12.4/2.1 Code(s): M85.80 - Other specified disorders of bone density and structure, unspecified site; Z78.0 - Asymptomatic menopausal state Category: Medical Plan: #Osteopenia No falls or fractures Encouraged weight bearing exercises Plan - DEXA 08/2025 - Continue Vit D and Calcium supplement (4) Polyarticular osteoarthritis: Code(s): M15.9 - Polyosteoarthritis, unspecified Plan: #Polyarticular OA Patient with polyarticular osteoarthritis Plan - Wants to follow up with pain management re her spine and any additional therapies - Refer to pain management Plan I spent 20 minutes reviewing the record and labs, taking a history, examining the patient, discussing the treatment plan and documenting in the medical record Orders: Orders C Reactive Protein Today Z79.899 - Other group home (current) drug therapy Vitamin D 25-OH Total Today E55.9 - Vitamin D deficiency, unspecified Thyroid Stimulating Hormone Today E03.9 - Hypothyroidism, unspecified Free T4 (Free Thyroxine) Today E03.9 - Hypothyroidism, unspecified Follicle Stimulating Hormone Today R23.2 - Flushing Estradiol Ultra Sensitive Today R23.2 - Flushing Complement C3 Today M32.9 - Systemic lupus erythematosus, unspecified Anti DNA DS Antibody Today M32.9 - Systemic lupus erythematosus, unspecified Complete Blood Count Auto Diff Today Z79.899 - Other regional intermodal truck driver (current) drug therapy Comprehensive Met. Panel Today Z79.899 - Other regional intermodal truck driver (current) drug therapy Erythrocyte Sedimentation Rate Today Z79.899 - Other regional intermodal truck driver (current) drug therapy Thyroglobulin Antibodies Today E03.9 - Hypothyroidism, unspecified Thyroid Peroxidase Antibodies Today E03.9 - Hypothyroidism, unspecified Complement C4 Today M32.9 - Systemic lupus erythematosus, unspecified Sm Sm/FARMWORKER POULTRY Antibodies Today M32.9 - Systemic lupus erythematosus, unspecified Referrals Pain Management Referral M47.816 - Spondylosis without myelopathy or radiculopathy, lumbar region Coding Level of Care Code Est Pt Level 3 (01205) Diagnoses Fibromyalgia M79.7 PETTY positive R76.8 Osteopenia after menopause M85.80; Z78.0 Polyarticular osteoarthritis M15.9
[2025-04-26 12:00] VITALS: BP 120/80; PULSE 75; O2SAT 98; BMI 24.1
== END 2025-04-26 12:52 | disposition home or self-care (01) ==
LOC: HO.RHES 11:50
PROVIDERS: PCP Physician Assistant; Visit Provider Student in an Organized Health Care Education/Training Program
DX: M79.7 Fibromyalgia (principal); R76.89 Other specified abnormal immunological findings in serum; M85.80 Other specified disorders of bone density and structure, unspecified site; Z78.0 Asymptomatic menopausal state; M15.9 Polyosteoarthritis, unspecified
CPT/HCPCS: 99213

== ENCOUNTER 2025-05-03 06:43 | Day surgery (SDC) | payer MEDICARE, SELFPAY ==
--- OUTSIDE RECORDS SUMMARY | 2025-04-23 09:01 | XMS_ITS | Encounter Summary ---
Author Organization [facility] Address [address] [place] [address] Care Team Providers Care Automobile Service Writer Name Role Phone Carla Vang MD Primary Care Provider [phone] Ariana Harrell WORSHIP LEADER Unavailable [phone] Encounter Details Date Type Department Care Team (Late st Contact Info) Description 02/01/2019 Scanned Document [address] [phone] Carla Vang MD [address] [place], [place] [phone] Social History Tobacco Use Types Packs/Day Years [...] on filedocumented in this encounter Care Teams Automobile Service Writer Relationship Specialty Start Date End Date Carla Vang MD [address] [place] [address] PCP - General Internal Medicine 03/15/18 12/24/20 Ariana Harrell, WORSHIP LEADER [address] [place] [address] Technical Business Analyst Clinical Social Work 12/27/18 03/06/19 documented as of this encounter
--- OUTSIDE RECORDS SUMMARY | 2025-04-23 09:01 | XMS_ITS | Clinical Summary ---
Author Organization [facility] Address [address] [place] [address] Phone Care Team Providers Care Debit Agent Name Role Phone Cecil Gan Primary Care [...] ACO [place]CO [place] [address] Care Teams Debit Agent Relationship Specialty Start Date End Date Cecil Gan PA [address] [place] [address] PCP - General 02/19/21 Additional Source Comments The information contained in this document represents components of the legal health record. It is not the complete legal health record.[facility]
--- OUTSIDE RECORDS SUMMARY | 2025-04-23 09:01 | XMS_ITS | Encounter Summary ---
Author Organization [facility] Address [address] [place] [address] Care Team Providers Care Health Service Worker Name Role Phone Carla Vang MD Primary Care Provider [phone] Ariana Harrell MANAGER INSTALLATION Unavailable [phone] Encounter Details Date Type Department Care Team (Late st Contact Info) Description 03/15/2018 Scanned Document [address] [phone] Provider, Generic Social History Tobacco Use Types [...] on file documented as of this encounter Functional Status documented as of this encounter Plan of Treatment Not on file documented as of this encounter Visit Diagnoses Not on filedocumented in this encounter Care Teams Health Service Worker Relationship Specialty Start Date End Date Carla Vang MD [address] [place] [address] PCP - General Internal Medicine 03/15/18 12/24/20 Ariana Harrell, MANAGER INSTALLATION [address] [place] [address] Chief Telephone Operator Clinical Social Work 12/27/18 03/06/19 documented as of this encounter
--- OUTSIDE RECORDS SUMMARY | 2025-04-23 09:01 | XMS_ITS | Encounter Summary ---
Author Organization [facility] Address [address] [place] [address] Care Team Providers Care Bookkeeper Name Role Phone Carla Vang MD Primary Care Provider [phone] Ariana Harrell WINE CELLAR WORKER Unavailable [phone] Encounter Details Date Type Department Care Team (Late st Contact Info) Description 12/23/2018 Scanned Document [address] [phone] Ariana Harrell, WINE CELLAR WORKER [address] [place] [address] Social History Tobacco Use Types Packs/Day Years [...] on filedocumented in this encounter Care Teams Bookkeeper Relationship Specialty Start Date End Date Carla Vang MD [address] [place] [address] PCP - General Internal Medicine 03/15/18 12/24/20 Ariana Harrell, WINE CELLAR WORKER [address] [place] [address] Ornamental Rail Installer Clinical Social Work 12/27/18 03/06/19 documented as of this encounter
--- OUTSIDE RECORDS SUMMARY | 2025-04-23 09:01 | XMS_ITS | Encounter Summary ---
Author Organization [facility] Address [address] [place] [address] Care Team Providers Care Biomedical Analytical Scientist Name Role Phone Carla Vang MD Primary Care Provider [phone] Ariana Harrell PHYSICIAN INDUSTRIAL Unavailable [phone] Encounter Details Date Type Department Care Team (Late st Contact Info) Description 03/23/2018 Scanned Document [address] [phone] Carla Vang MD [address] [place], [place] [phone] Social History Tobacco Use Types Packs/Day Years [...] on filedocumented in this encounter Care Teams Biomedical Analytical Scientist Relationship Specialty Start Date End Date Carla Vang MD [address] [place] [address] PCP - General Internal Medicine 03/15/18 12/24/20 Ariana Harrell, PHYSICIAN INDUSTRIAL [address] [place] [address] Repair Miller Clinical Social Work 12/27/18 03/06/19 documented as of this encounter
--- OUTSIDE RECORDS SUMMARY | 2025-04-23 09:01 | XMS_ITS | Encounter Summary ---
Author Organization [facility] Address [address] [place] [address] Care Team Providers Care Communication Clerk Name Role Phone Carla Vang MD Primary Care Provider + [phone] Ariana HarrellW Unavailable [phone] Encounter Details Date Type Department Care Team (Late st Contact Info) Description 09/01/2018 Scanned Document [address] [place] [phone] Provider, Generic Social History Tobacco Use [...] on filedocumented in this encounter Care Teams Communication Clerk Relationship Specialty Start Date End Date Carla Vang MD [address] [place] [address] PCP - General Internal Medicine 03/15/18 12/24/20 Ariana Harrell FINISHER MAP AND CHART [address] [place] [address] Crm Coordinator Clinical Social Work 12/27/18 03/06/19 documented as of this encounter
--- OUTSIDE RECORDS SUMMARY | 2025-04-23 09:01 | XMS_ITS | Clinical Summary ---
Author Organization [facility] Address [address] [place] [address] Care Team Providers Care Roentgenology Teacher Name Role Phone Unavailable Primary Care Provider [...] COVID-19 Vaccine (2023- season) 2025 RSV Vaccine 50 years and older and Patients (1 - [...] Performing Organization Information: Site ID: [id number] Name: [facility] Address: [address] [place] [address], [place] [address] Director: Israel Mckeon MD Carla Vang MD LAB BLOOD ORDERABLES Final R esult [facility] [address] [facility] 3rd Floor, [place] [address] from Last 3 Months or Most Recently Relevant to Health Maintenance Insurance [facility]
--- NOTE | 2025-05-01 09:57 | HO.ANESPROP2 ---
Documented by User: Mary Osborne NP 05/01/25 09:58 HPI - Anesthesia Eval Consult details Narrative: 64yo F for Colonoscopy PMFSH Active Problems Active Problems: All Active Problems Atrophic vulva (Acute) Vulvar itching (Acute) Tubular adenoma of colon (Acute) Annual wellness visit (Acute) Cellulitis of left breast (Acute) Lump of right breast (Acute) Painful lumpy right breast (Acute) Encounter for well woman exam with routine gynecological exam (Acute) Allergic rhinitis (Acute) Fibromyalgia (Acute) Cervical disc disease with myelopathy (Acute) Osteopenia after menopause (Acute) Sacroiliac joint pain (Acute) Lumbar post-laminectomy syndrome (Acute) Lumbar degenerative disc disease (Acute) Lumbar spondylosis (Acute) Muscle spasm (Acute) Post-menopausal (Acute) Recurrent aphthous ulcer (Acute) Cervical radiculitis (Acute) GERD (gastroesophageal reflux disease) (Acute) Breast cancer screening (Acute) Cervical cancer screening (Acute) Lumbar radiculopathy (Acute) MDD (major depressive disorder), recurrent episode, moderate (Acute) Martins's neuroma of left foot (Acute) Heart palpitations (Acute) Leukopenia (Acute) Polyarthralgia (Acute) PETTY positive (Acute) Cervical spondylosis (Acute) Colon adenomas (Acute) Hemorrhoids (Acute) Hiatal hernia without gangrene or obstruction (Acute) Annual physical exam (Acute) DONNIE (generalized anxiety disorder) (Acute) HLD (hyperlipidemia) (Acute) Past Medical History Medical History Atrophic vulva Lump of right breast Painful lumpy right breast Osteopenia after menopause Colon adenomas Cervical spondylitis Pharyngoesophageal dysphagia DONNIE (generalized anxiety disorder) Leukopenia Depression Menopause Lumbar radiculopathy Hyperlipidemia Fibromyalgia Anxiety Family History Family History Father Lung cancer Plaque psoriasis Mother Lung cancer Paternal Uncle Colon cancer Sister Raynaud's disease Family/Other History of breast cancer Paternal Aunt No problems noted. Sister Dementia Sister Breast cancer in female Surgical History Surgical History History of esophagogastroduodenoscopy (EGD) History of colonoscopy History of back surgery History of tubal ligation Social History Social History Household Members Other:: lives with adult daughter Housing: House Alcohol intake: current Alcohol intake frequency: holidays/special occasions only Patient Tobacco Use Status: Former Tobacco user Tobacco use type: Cigarette e-Cigarette/Vaping Use: Never Used Second Hand Smoke Exposure: No Substance Use Type Other:: gummies occasionally Are you DNR?: No Advance Directives: No Advance Directives Information Provided: Yes Patient : No : No service: No Current occupational status: employed 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 [employer] Current occupational exposures/hazards: No Cognitive needs: No Hearing needs: No Vision needs: No Meds Allergies Allergy/AdvReac Type Severity Reaction Status Date / Time No Known Allergies Allergy Verified 04/26/25 11:57 Home Medications ?Medication ?Instructions ?Recorded ?Confirmed ?Last Taken ?Type dextroamphetamine-amphetamine 10 10 mg PO BID 11/05/20 05/01/25 Unknown History mg tablet (Adderall) lorazepam 1 mg tablet 1 mg PO BID 07/12/23 05/01/25 Unknown History naproxen 375 mg tablet 375 mg PO BID PRN Pain 10/24/24 05/01/25 Unknown History duloxetine 60 mg capsule,delayed 90 mg PO DAILY 04/26/25 05/01/25 Unknown History release Assessment and Plan Assessment Anesthesia Assessment: Chart Reviewed Documented by User: Fabio Kwon MD 05/03/25 07:33 [facility] Past Medical History Medical History Atrophic vulva Lump of right breast Painful lumpy right breast Osteopenia after menopause Colon adenomas Cervical spondylitis Pharyngoesophageal dysphagia DONNIE (generalized anxiety disorder) Leukopenia Depression Menopause Lumbar radiculopathy Hyperlipidemia Fibromyalgia Anxiety Functional capacity: independent ambulation Family History Family History Father Lung cancer Plaque psoriasis Mother Lung cancer Paternal Uncle Colon cancer Sister Raynaud's disease Family/Other History of breast cancer Paternal Aunt No problems noted. Sister Dementia Sister Breast cancer in female Family history of problems with anesthesia: No Surgical History Surgical History History of esophagogastroduodenoscopy (EGD) History of colonoscopy History of back surgery History of tubal ligation History of Problems with Anesthesia: No Social History Social History Household Members Other:: lives with adult daughter Housing: House Alcohol intake: current Alcohol intake frequency: holidays/special occasions only Patient Tobacco Use Status: Former Tobacco user Tobacco use type: Cigarette e-Cigarette/Vaping Use: Never Used Second Hand Smoke Exposure: No Substance Use Type Other:: gummies occasionally Are you DNR?: No Advance Directives: No Advance Directives Information Provided: Yes Patient : No : No service: No Current occupational status: employed 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 [employer] Current occupational exposures/hazards: No Cognitive needs: No Hearing needs: No Vision needs: No Meds Allergies Allergy/AdvReac Type Severity Reaction Status Date / Time No Known Allergies Allergy Verified 04/26/25 11:57 Home Medications ?Medication ?Instructions ?Recorded ?Confirmed ?Last Taken ?Type dextroamphetamine-amphetamine 10 10 mg PO BID 11/05/20 05/01/25 Unknown History mg tablet (Adderall) lorazepam 1 mg tablet 1 mg PO BID 07/12/23 05/01/25 Unknown History naproxen 375 mg tablet 375 mg PO BID PRN Pain 10/24/24 05/01/25 Unknown History duloxetine 60 mg capsule,delayed 90 mg PO DAILY 04/26/25 05/01/25 Unknown History release Exam Exam Date and Time: 05/03/2025 Airway TM Dist: >3cm Neck ROM: Full Heart: normal Lungs: normal Other: normal Assessment and Plan Assessment Anesthesia Assessment: Anesthesia Plan Discussed Final Anesthetic Review Family History of Problems with Anesthesia: No History of Problems with Anesthesia: No NPO: Yes ASA Class: II Final Preanesthetic Review: No Changes in Pt Med Stat, Meds/Allgs Chart Reviewed, Consent Obtained/Reviewed and Anes Risks/Benef Reviewed Patient Risk: Low Procedure Risk: Low Anesthetic Plan Anesthetic Plan: MAC: Disposition: Standard PACU
[2025-05-01 13:53] VITALS: BMI 23.9
--- NOTE | 2025-05-03 06:42 | MHC.SHP ---
Pre-Procedural Eval Section A - 24 Hr Update-Section A only Date of Service: 05/03/25 Section B - Complete if H&P > 30 days Chief Complaint: screening Relevant Family History (Specify if Yes): No Relevant Social History: None Present Medications: see Short Stay Collaborative assessment Medical History: Significant History (Anxiety Cervical spondylitis Colon adenomas Depression Fibromyalgia DONNIE (generalized anxiety disorder) Hyperlipidemia Leukopenia Lumbar radiculopathy Menopause Pharyngoesophageal dysphagia) History of Previous Operations: Relevant previous surgery/procedure and date(s) ( History of back surgery History of colonoscopy History of tubal ligation) Allergies: Allergies Allergy/AdvReac Type Severity Reaction Status Date / Time No Known Allergies Allergy Verified 04/26/25 11:57 Review of Systems Sugical H&P ROS: Negative: Constitution, Cardiovascular, Respiratory, Neurological, Psychiatric, Hem-Onc, Allergic/Immunologic, Gastrointestinal, Genitourinary, Musculoskeletal, Integumentary, Endocrine and Eyes/Ears/Nose/Throat Exam Surgical H&P Exam: Normal: HEENT, Normal: Heart, Normal: Lungs, Normal: Extremities, Normal: Abdomen, Normal: Skin and Normal: Neurological Plan Diagnosis/Plan: Unchanged I have reviewed the history and physical and performed a pertinent physical examination on my patient. No changes have occurred unless specified. Time Spent With Patient Time: Total time managing care of this patient today ____ minutes.
[2025-05-03 06:52] VITALS: BMI 22.9
[2025-05-03 06:54] VITALS: BP 121/74; PULSE 87; RESP 16; TEMP 36.5; O2SAT 96
[2025-05-03] MEDS: Lactated Ringers 1,000 ML 100 ML IVCONT (07:11)
--- NOTE | 2025-05-03 08:03 | HO.OPN-COLON ---
Colonoscopy Operative Note Operative Note Date of Service: 05/03/25 Narrative: Operative Information Procedure Description: Colonoscopy Indication: Screening Anesthesia: MAC COLONOSCOPY Instrument: Olympus variable stiffness pediatric scope 190L Colonoscopy Monitoring: Vital signs and clinical assessment, continuous EKG monitoring, Pulse oximetry, Carbon Dioxide monitoring and blood pressure monitoring were done throughout the procedure. Colon withdrawal time was 8 minutes. Procedure: The patient was placed in the left lateral decubitis position and pre-procedure medications were administered. After a digital rectal examination of the ano-rectum, the video colonoscope was inserted into the rectum and advanced through the colon to the cecum/TI. The colonoscope was slowly withdrawn in a retrograde panoramic fashion and the colon mucosa was carefully examined including a retroflexed view of the rectum. Findings and interventions are described below. Procedure Difficulty: easy--used colowrap due to last note mention if tortuous colon Findings: Terminal Ileum-normal Cecum:normal right sided retroflexion- normal Ascending Colon: normal Transverse Colon -normal Descending Colon:normal Sigmoid Colon: normal Rectum: Retroflexion with small to medium internal hemorrhoids seen, grade I Anorectum - normal Intervention: none Colon preparation: [place] Bowel Preparation Scale Right colon; 2 Transverse colon: 2 Left colon; 1-2 (0 = Unprepared colon segment with mucosa not seen due to solid stool that cannot be cleared. 1 = Portion of mucosa of the colon segment seen, but other areas of the colon segment not well seen due to staining, residual stool and/or opaque liquid. 2 = Minor amount of residual staining, small fragments of stool and/or opaque liquid, but mucosa of colon segment seen well. 3 = Entire mucosa of colon segment seen well with no residual staining, small fragments of stool or opaque liquid) Impression and Post Procedure Diagnosis: internal hemorrhoids Plan: High fiber diet leaflet Avoid straining at stool, epsom salts and sitz bath, anusol supps or cream Repeat Colonoscopy in 5-6 years due to some areas of fair prep on the left or earlier if clinically indicated Above findings were reviewed with the patient and relevant handouts were provided if indicated.
[2025-05-03 08:06] VITALS: BP 110/75; PULSE 78; RESP 17; TEMP 36.4; O2SAT 98
[2025-05-03 08:15] VITALS: BP 110/76; PULSE 71; RESP 17; O2SAT 100
[2025-05-03 08:30] VITALS: BP 149/65; PULSE 71; RESP 70; TEMP 36.4; O2SAT 100
== END 2025-05-03 08:48 | disposition home or self-care (01) ==
PROVIDERS: PCP Physician Assistant; Visit Provider Internal Medicine Gastroenterology
PROC: 0DJD8ZZ Inspection of Lower Intestinal Tract, Via Natural or Artificial Opening Endoscopic (ICD-10-PCS; CPT 45378; principal; 2025-05-03 07:30)
DX: Z12.11 Encounter for screening for malignant neoplasm of colon (principal); Z86.0101 Personal history of adenomatous and serrated colon polyps; K64.0 First degree hemorrhoids
CPT/HCPCS: G0105; J2003; J2704

== ENCOUNTER → 2025-05-03 06:43 | Outpatient (BNV) | payer MEDICARE, MEDICAID, SELFPAY | PROVIDERS: PCP Physician Assistant; Visit Provider Internal Medicine Gastroenterology | DX: Z12.11 Encounter for screening for malignant neoplasm of colon (principal); K64.0 First degree hemorrhoids | CPT/HCPCS: G0121 ==